=== PATIENT | female | born 1965 | race Caucasian/White ===

== ENCOUNTER 2017-03-13 11:23 | Emergency (ER) | payer MEDICAID ==
[2017-03-13 11:46] VITALS: BP 136/75
--- NOTE | 2017-03-13 14:07 | ERNOTE ---
Upper Extremity HPI - General Extremities Pain Location: shoulder: right Time Seen by Provider: 03/13/17 13:45 Source: patient Exam Limitations: no limitations - Immun/Allergies/Home Medications Immunizations: IMMUNIZATION HX Immunizations Up to Date Yes Allergies/Adverse Reactions: Allergies Allergy/AdvReac Type Severity Reaction Status Date / Time cyclobenzaprine HCl Allergy Verified 03/13/17 11:46 [From Flexeril] diphenhydramine HCl Allergy Verified 03/13/17 11:46 [From Benadryl] tramadol Allergy Verified 03/13/17 11:46 Home Medications: HOME MEDICATIONS Ibuprofen [Motrin] 600 mg PO TID PRN #45 tab 10/02/16 [Last Taken Unknown] HYDROcodone/ACETAMINOPHEN [War 5-325] 1 each PO Q4H PRN #8 tablet 03/13/17 [ Last Taken Unknown] - History of Present Illness Narrative: Patient had had trouble with her right rotator cuff and was supposed to have surgery but has not been able to have it done to a lot of medical challenges with her family. Over the weekend she helped her daughter move and has had more pain in her right shoulder again. Denies any injuries. Ibuprofen is not helping, she took her father's soma with some relieve. Review of Systems - Review of Systems Constitutional: Absent: fever, chills ENT: Present: no symptoms reported Respiratory: Present: no symptoms reported Cardiology: Present: no symptoms reported Gastrointestinal/Abdominal: Present: no symptoms reported Genitourinary: Present: no symptoms reported Musculoskeletal: Present: See HPI Neurological: Absent: weakness, numbness - Patient's Past Medical History Patient History - Medical: Chronic Pain, Other - chronic pain Patient History - Cardiac/Respiratory: No pertinent hx Patient History - Cancer: No Hx of Cancer Patient History - Surgical Procedures: Appendectomy, Other Patient History - Other: None - Social History Living Situations: home Abuse History: No History of abuse Psych History: No pertinent hx Alcohol Use: none Drug Use: none - Immunizations Immunizations Up to Date: Yes Physical Exam - Physical Exam General Appearance: Present: wd/wn, alert, no apparent distress Respiratory: Present: no respiratory distress, normal breath sounds, no accessory muscle use, lungs clear Cardiovascular/Chest: Present: regular rate, rhythm, no murmur Extremity Exam: Present: normal inspection, other - tender anterior shoulder, pain on ROM exam, no deformity Neurological Exam: Present: alert, oriented, normal mood/affect, no motor/ sensory deficits Skin Exam: Present: normal color, warm/dry ED Progress - Vital Signs Patient's Vital Signs:: I have reviewed the patient's vital signs. Vital Signs: Vital Signs 03/13/17 11:38 Temperature 36.7 C Pulse Rate 90 Respiratory 12 Rate Blood Pressure 136/75 O2 Sat by Pulse 98 Oximetry - Progress/Reassessment Chief Complaint: Shoulder Injury/Pain Progress Note-Subjective: 03/13/17 13:55 when asked about the five narcotic prescription that she has received last month she states that she was admitted for pancreatitis and has been dealing with migraines Departure Clinical Impression: Shoulder pain, right Qualifiers: Chronicity: unspecified Qualified Code(s): M25.511 - Pain in right shoulder - Departure Disposition: Home self-care Condition: Good Instructions: Shoulder Pain, [id number] Additional Instructions: take ibuprofen 600mg every six hours as needed for pain follow up with your orthopedic doctor Prescriptions: HYDROcodone/ACETAMINOPHEN [War 5-325] 1 each PO Q4H PRN #8 tablet PRN Reason: Pain
--- OUTSIDE RECORDS SUMMARY | 2017-03-13 14:10 | XMS REPORT | Continuity of Care Document ---
:1965 Author Organization [facility] [place] [address] Care Team Providers Name Role Phone Unavailable Primary Care Provider Unavailable Source Comments This disclosure is being made pursuant to the [employer] program and maynot contain all information available regarding this patient.[facility] Active Allergies and Adverse Reactions Not on File Current Medications Be aware that medications may not be up to date as of this document. Alwaysverify current medications with the patient. Not on file Active Problems Not on file Social History Tobacco Use Types Packs/Day Years Used Date Never Assessed Plan of Care Health Maintenance Due Date Last Done Comments Retired-Pertussis Vaccine Adult 1983 Retired-Tetanus Vaccine Adult 1983 Pap Smear 1985 Mammogram 2004 Colonoscopy 2014 Well Adult Visit 2014 Retired-INFLUENZA VACCINE 07/28/2015 Results from Last 3 Months Not on file
--- OUTSIDE RECORDS SUMMARY | 2017-03-13 14:11 | XMS REPORT | CCD ---
:1965 Author Name KIMBERLI ROY Dustin Address [address] [facility] Unavailable [place], [place] [id number] Care Team Providers Name Role Phone SATURNINO ARROYO DO Attending Physician Unavailable SATURNINO ARROYO DO Er Physician 1 Unavailable Vital Signs Vital Sign Value Unit Height 67 in Weight Measured 175 lbs BMI (Body Mass Index) 27.41 kg/m^2 BSA (Body Surface Area) 1.94 m^2 Allergies Allergy Code Allergy Type Reaction Status TRAMADOL 0 Drug allergy (disorder) Active KETOROLAC 0 Drug allergy (disorder) ITCHING Active GABAPENTIN 0 Drug allergy (disorder) Active IMITREX NS SPR 20 MG 0 Drug allergy (disorder) Active Procedures Unknown. History of Immunizations Unknown. Problems Problem Code Start Date Resolved Date Status MIGRAINE 33273774 12/25/2011 Active Personal history of surgery to heart and 643507663 Active great vessels, presenting hazards to health Head injury, unspecified 51266446 12/12/2013 Active Sprain of other specified sites of elbow 226612576 11/20/2013 Active and forearm Anxiety state, unspecified 260277174 10/30/2013 Active Pain in joint involving upper arm 28352687 09/21/2013 Active Mononeuritis of upper limb, unspecified 89578297 07/26/2013 Active DIZZINESS 340427557 11/02/2011 Active DIABETES MELLITUS 96195719 11/02/2011 Active OTHER SPECIFIED DISORDER OF NERVOUS SYSTEM 207740865 04/01/2013 Active 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 61412 11/02/2011 Active ARTERY CALCULUS OF KIDNEY 78873651 05/29/2013 Active BP (HIGH BLOOD PRESSURE) 92720768 11/02/2011 Active CLOSED DISPLACED FRACTURE OF FIFTH 53110992 Active METATARSAL BONE GASTRO - ESOPHAGEAL REFLUX DISEASE 930814036 Active H/O ACUTE MYOCARDIAL INFARCTION 412 Active ACTIVE SMOKER 06321147 Active SENIOR CARE CURRENT USE OF INSULIN 365471679 Active CALCULUS OF URETER 60848023 02/10/2013 Active CONTUSION OF ANKLE 14682644 08/08/2012 Active CONTUSION OF FOOT 62351429 08/08/2012 Active CONTUSION OF CHEST WALL 45803664 12/24/2012 Active NAUSEA WITH VOMITING 73485413 10/11/2012 Active CHEST PAIN 33411101 06/19/2012 Active CEPHALGIA 78717231 01/09/2012 Active CONTUSION OF HIP 55149415 07/16/2012 Active CONTUSION OF BACK 19548455 07/16/2012 Active Results Unknown. Medications Medication Code Dose Units Frequency Route Modification Start Stop Date/Time Date/Time Pravastatin 865738 40 MILLIGRAMS Before bed ORAL 08/24/2013 40MG Oral 10:59 Tablet Clopidogrel 580990 75 MILLIGRAMS ORAL 08/24/2013 75MG Oral 10:59 Tablet Aspirin 325MG 643396 325 MILLIGRAMS ORAL 08/24/2013 Oral Tablet 10:59 Lisinopril 313981 20 MILLIGRAMS DAILY ORAL 11/20/2013 20MG Oral 21:32 Tablet GlipiZIDE 142579 10 MILLIGRAMS DAILY ORAL 11/20/2013 10MG Oral 21:32 Tablet Hydrocodone 985654 1 TABLET Every BY For pain 11/29/2013 Bitart/Acet 4-6hr PRN MOUTH 01:37 325MG-5MG Oral Tablet Medications Administered Unknown. Encounters Encounter Diagnosis Diagnosis Code Start Date HEAD INJURY, UNSPEC 61447 12/12/2013 Social History Smoking Status Code Start Date End Date Current every day smoker [id number] Patient Decision Aids Patient Decision Aid [facility] Patient Educational Materials Instructions You were admitted to [facility] on 12/12/2013 with a principle diagnosis of HEAD INJURY, UNSPEC. You were discharged from [facility] on 12/12/2013. Should you have any questions prior to discharge, please contact a member of your healthcare team. If you have left the hospital and have any questions, please contact your primary care physician. Chief Complaint and Reason For Visit Chief Complaint Date of Onset FELL HIT HEAD ON ICE Function Status Unknown. Plan of Care Unknown. Referral/Transition of Care Unknown.
--- OUTSIDE RECORDS SUMMARY | 2017-03-13 14:11 | XMS REPORT | CCD ---
:1965 Author Name GATITO CABELLO Address [address] Unavailable [place], [place] [id number] Care Team Providers Name Role Phone JEB JAMES Attending Physician Unavailable Vital Signs Unknown. Allergies Allergy Code Allergy Type Reaction Status TRAMADOL 0 Drug allergy (disorder) Active KETOROLAC 0 Drug allergy (disorder) ITCHING Active GABAPENTIN 0 Drug allergy (disorder) Active IMITREX NS SPR 20 MG 0 Drug allergy (disorder) Active Procedures Procedure Code Procedure Type Date POLYSOMNOGRAM 8917 ICD-9 CM, Volume 3 12/16/2013 [address]Y 03611547 SNOMED CT 12/16/2013 History of Immunizations Unknown. 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 22933 11/02/2011 Active ARTERY CALCULUS OF KIDNEY 31333653 05/29/2013 Active BP (HIGH BLOOD PRESSURE) 38323259 11/02/2011 Active CLOSED DISPLACED FRACTURE OF FIFTH 16121058 Active METATARSAL BONE GASTRO - ESOPHAGEAL REFLUX DISEASE 602523697 Active H/O ACUTE MYOCARDIAL INFARCTION 412 Active ACTIVE SMOKER 44634742 Active HALF-WAY CURRENT USE OF INSULIN 895315961 Active CALCULUS OF URETER 56139198 02/10/2013 Active CONTUSION OF ANKLE 04854898 08/08/2012 Active CONTUSION OF FOOT 05345973 08/08/2012 Active CONTUSION OF CHEST WALL 86090633 12/24/2012 Active NAUSEA WITH VOMITING 83272582 10/11/2012 Active CHEST PAIN 26024385 06/19/2012 Active CEPHALGIA 10901489 01/09/2012 Active CONTUSION OF HIP 95276744 07/16/2012 Active CONTUSION OF BACK 08647137 07/16/2012 Active Results Unknown. Medications Medication Code Dose Units Frequency Route Modification Start Stop Date/Time Date/Time Pravastatin 369140 40 MILLIGRAMS Before bed ORAL 08/24/2013 40MG Oral 10:59 Tablet Clopidogrel 398112 75 MILLIGRAMS ORAL 08/24/2013 75MG Oral 10:59 Tablet Aspirin 325MG 218832 325 MILLIGRAMS ORAL 08/24/2013 Oral Tablet 10:59 Lisinopril 971104 20 MILLIGRAMS DAILY ORAL 11/20/2013 20MG Oral 21:32 Tablet GlipiZIDE 901605 10 MILLIGRAMS DAILY ORAL 11/20/2013 10MG Oral 21:32 Tablet Hydrocodone 214528 1 TABLET Every BY For pain 11/29/2013 Bitart/Acet 4-6hr PRN MOUTH 01:37 325MG-5MG Oral Tablet Medications Administered Unknown. Encounters Encounter Diagnosis Diagnosis Code Start Date SLEEP DISTURBANCE NOS 78990 12/16/2013 Social History Smoking Status Code Start Date End Date Current every day smoker 831876806 Patient Decision Aids Unknown. Instructions You were admitted to [facility] on 12/16/2013 with a principle diagnosis of SLEEP DISTURBANCE NOS. You had the following procedures done:POLYSOMNOGRAM You were discharged from [facility] on 12/16/2013. Should you have any questions prior to discharge, please contact a member of your healthcare team. If you have left the hospital and have any questions, please contact your primary care physician. Chief Complaint and Reason For Visit Chief Complaint Date of Onset SLEEP STUDY Function Status Unknown. Plan of Care Unknown. Referral/Transition of Care Unknown.
--- OUTSIDE RECORDS SUMMARY | 2017-03-13 14:11 | XMS REPORT | CCD ---
:1965 Author Name GATITO CABELLO Address [address] Unavailable [place], [place] [id number] Care Team Providers Name Role Phone MOISES LEON Attending Physician Unavailable Vital Signs Unknown or Not Available. Allergies Allergy Code Allergy Type Reaction Status BENADRYL 691248 Drug allergy ITCHING Active CYCLOBENZAPRINE 37391 Drug allergy Active KETOROLAC 21113 Drug allergy ITCHING Active TRAMADOL 51427 Drug allergy Active IMITREX NS SPR 20 MG 0 Drug allergy Active GABAPENTIN 23252 Drug allergy Active Procedures Unknown or Not Available. History of Immunizations Unknown or Not Available. 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 CURRENT USE OF INSULIN 320106053 Active MIGRAINE 78322911 12/25/2011 Active CEPHALGIA 88665638 01/09/2012 Active CHEST PAIN 55503849 06/19/2012 Active CONTUSION OF BACK 09448367 07/16/2012 Active CONTUSION OF HIP 80035282 07/16/2012 Active CONTUSION OF FOOT 19831673 08/08/2012 Active CONTUSION OF ANKLE 71379274 08/08/2012 Active NAUSEA WITH VOMITING 18850821 10/11/2012 Active CONTUSION OF CHEST WALL 20222048 12/24/2012 Active CALCULUS OF URETER 79829770 02/10/2013 Active OTHER SPECIFIED DISORDER OF NERVOUS SYSTEM 725461718 04/01/2013 Active CALCULUS OF KIDNEY 39546225 05/29/2013 Active Mononeuritis of upper limb, unspecified 23815025 07/26/2013 Active Pain in joint involving upper arm 20661423 09/21/2013 Active Anxiety state, unspecified 587348750 10/30/2013 Active Sprain of other specified sites of elbow 114378611 11/20/2013 Active and forearm Head injury, unspecified 28508351 12/12/2013 Active Personal history of surgery to heart and 077093010 Active great vessels, presenting hazards to health Headache 28224927 12/13/2013 Active Unspecified essential hypertension 41262641 Active Malignant neoplasm of cervix uteri, 740251366 Active unspecified Results Unknown or Not Available. Active Medications Medication Code Dose Units Frequency Route Modification Start Date/Time Metformin 1000MG 443505 4744 MILLIGRAMS TWICE A DAY ORAL 07/29/2014 Oral Tablet 06:20 Prescription Detail TAKE 1000 MILLIGRAMS ORAL TWICE A DAY Medications Administered During Visit Unknown or Not Available. 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 Discharge Instructions You were admitted to [facility] on 02/23/2016 13:49 with a principal diagnosis of Sedative, hypnotic or anxiolytic abuse, uncomplicated You were discharged from [facility] on 02/23/2016 14:12 Should you have any questions prior to discharge, please contact a member of your healthcare team. If you have left the hospital and have any questions, please contact your primary care physician. Chief Complaint and Reason For Visit Chief Complaint Date of Onset POSS STROKE Function Status Unknown or Not Available. Plan of Care Unknown or Not Available. Referral/Transition of Care Unknown or Not Available.
--- OUTSIDE RECORDS SUMMARY | 2017-03-13 14:11 | XMS REPORT | Continuity of Care Document ---
:1965 Author Organization [facility] ([facility]) Address [place] [address] Phone [phone] Care Team Providers Name Role Phone Laureano Zepeda Primary Care Provider [phone] Source Comments This disclosure is being made pursuant to the Care Everywhere program, applicable federal and state laws, and may not contain all informaitonavailable regarding this patient.[facility] ([facility]) Active Allergies and Adverse Reactions Allergen Noted Date Severity Reactions Comments Baclofen 08/30/2016 Medium Nausea & Vomiting Diphenhydramine Hcl 09/01/2016 Pruritus Gabapentin 09/12/2013 Medium Dizziness Severe dizziness Ketorolac 05/29/2013 Headache Sumatriptan Hypotension Tramadol 10/26/2012 Low OTHER Severe headache Current Medications Prescription Sig. Disp. Refills Start End Date Status Date nitroglycerin 0.4 place 1 Tab under 25 Tab 11 Active mg SL tablet the tongue every 3 5 minutes as needed. Indications: ANGINA acetaminophen 325 Take 325 mg by Active mg tablet mouth every 6 hours as needed. aspirin 81 mg EC Take 1 Tab by 30 Tab 11 Active tablet mouth daily. 4 Indications: MYOCARDIAL INFARCTION PREVENTION lisinopril 5 mg Take 1 Tab by 30 Tab 11 Active tablet mouth daily. 4 Indications: CHRONIC HEART FAILURE metoPROLol tartrate Take 1.5 Tabs by 90 Tab 11 Active 25 mg tablet mouth every 12 4 hours. Indications: ACUTE CORONARY SYNDROME albuterol 2.5 mg/3 One treatment Active mL inhalation four times a day 6 solution ramipril (ALTACE) One daily Active 2.5 mg capsule 6 albuterol (PROAIR 1-2 inhalations Active HFA) 90 every 4-6 hours 6 mcg/Actuation as needed inhaler cholecalciferol Take 1,000 Units Active (VITAMIN D3) 1,000 by mouth daily. unit capsule meloxicam 15 mg Take 1 tablet (15 30 tablet 2 Active tablet mg total) by 6 mouth daily. atorvastatin 80 mg Take 1 tablet (80 30 tablet 2 Active tablet mg total) by 6 mouth at bedtime. clopidogrel 75 mg Take 1 tablet (75 30 tablet 2 Active tablet mg total) by 6 mouth daily. melatonin 3 mg Take 1 tablet (3 15 tablet 0 Active tablet mg total) by 6 mouth at bedtime. METFORMIN 1,000 mg TAKE ONE TABLET 60 tablet 3 Active tablet BY MOUTH TWICE 6 DAILY ciprofloxacin HCl Take 1 tablet 20 tablet 0 Active 500 mg tablet (500 mg total) by 7 mouth 2 times daily. cyclobenzaprine 10 Take 1 tablet (10 30 tablet 0 Active mg tablet mg total) by 7 mouth 3 times daily as needed. benzonatate 100 mg Take 1 capsule 30 capsule 0 Active capsule (100 mg total) by 7 mouth 3 times daily as needed for Cough. cefdinir 300 mg Take 1 capsule 20 capsule 0 Active capsule (300 mg total) by 7 mouth 2 times daily. zolpiDEM 10 mg Take 1 tablet (10 30 tablet 0 Active tablet mg total) by 7 mouth at bedtime as needed. ALPRAZolam 1 mg Take 1 tablet (1 90 tablet 0 Active tablet mg total) by 7 mouth 3 times daily. acetaminophen-codei Take 1-2 tablets 30 tablet 0 Active ne 300-30 mg per by mouth every 6 7 tablet hours as needed for Pain. carisoprodol 350 mg Take 1 tablet 10 tablet 0 Active tablet (350 mg total) by 7 mouth 4 times daily. HYDROcodone-acetami Take 1 tablet by 12 tablet 0 Active nophen 5-325 mg per mouth every 6 7 tablet hours as needed. oxyCODONE-acetamino Take 1-2 tablets 30 tablet 0 02/18/20 Discontinued phen 5-325 mg per by mouth every 4 7 17 tablet hours as needed. Do NOT exceed 4000 mg of acetaminophen per 24 hours. azithromycin 250 mg Take 2 tablets 6 tablet 0 02/18/20 Discontinued tablet today, then 1 7 17 tablet daily for 4 days HYDROcodone-acetami Take 1-2 tablets 30 tablet 0 02/18/20 Discontinued nophen 5-325 mg per by mouth every 8 7 17 tablet hours as needed for Pain. zolpiDEM 10 mg Take 1 tablet (10 30 tablet 0 02/16/20 Discontinued tablet mg total) by 7 17 mouth at bedtime as needed. ALPRAZolam 1 mg Take 1 tablet (1 90 tablet 0 02/16/20 Discontinued tablet mg total) by 7 17 mouth 3 times daily. acetaminophen-codei Take 1-2 tablets 22 tablet 0 02/18/20 Discontinued ne 300-30 mg per by mouth every 6 7 17 tablet hours as needed for Pain. cefUROXime (CEFTIN) Take 1 tablet 20 tablet 0 02/18/20 Discontinued 500 mg tablet (500 mg total) by 7 17 mouth 2 times daily. oxyCODONE-acetamino Take 1-2 tablets 20 tablet 0 02/18/20 Discontinued phen 5-325 mg per by mouth every 6 7 17 tablet hours as needed. Do NOT exceed 4000 mg of acetaminophen per 24 hours. HYDROcodone-acetami Take 1-2 tablets 30 tablet 0 02/18/20 Discontinued nophen 5-325 mg per by mouth every 4 7 17 tablet hours as needed. azithromycin 500 mg Take 1 tablet 5 tablet 0 02/18/20 Discontinued tablet (500 mg total) by 7 17 mouth daily. ALPRAZolam 1 mg Take 1 tablet (1 90 tablet 0 02/18/20 Discontinued tablet mg total) by 7 17 mouth 3 times daily. Active Problems Problem Noted Date Muscle pain 06/17/2016 Disorder associated with type 2 diabetes mellitus 06/10/2016 Chronic pain 12/31/2015 Anxiety disorder 12/10/2015 Chronic fatigue 12/10/2015 Hyperlipidemia 12/10/2015 Insomnia 12/10/2015 Abnormal cervical Papanicolaou smear 12/07/2015 Type 2 diabetes mellitus 12/07/2015 Panic attack 12/07/2015 Abnormal nuclear cardiac imaging test 04/15/2014 Unstable angina 04/15/2014 Chest pain 04/14/2014 Strain flexor musc/fasc/tend at forarm lv, right arm, init 01/22/2014 Cubital tunnel syndrome 08/01/2013 Paresthesias in right hand 06/26/2013 Ureterolithiasis 05/29/2013 Left against medical advice 05/10/2013 Drug-seeking behavior 05/10/2013 CAD (coronary artery disease) s/p NSTEMI (05/2011 -- DESx2 to LAD) s/p 2012 STEMI (04/2011 -- GILLES to RCA) History of noncompliance with medical treatment 05/09/2013 Ulnar nerve impingement 05/04/2013 Diabetes mellitus type 2, uncontrolled 09/25/2012 Overview: Formatting of this note may be different from the original. Lab Results Component Value Date HBA1C 9.1* 01/25/2012 Tobacco abuse 01/25/2012 NSTEMI (non-ST elevated myocardial infarction) 05/11/2011 Transient alteration of awareness 10/08/2009 Dysplasia of cervix, unspecified 02/25/2009 Hyperlipidemia LDL goal < 70 12/19/2008 Overview: Formatting of this note may be different from the original. Lab Results Component Value Date CHOL 295 01/25/2012 CHOL 205 08/02/2011 CHOL 188 06/06/2011 TRIG 378* 01/25/2012 TRIG 175* 08/02/2011 TRIG 330* 06/06/2011 HDLP 31* 01/25/2012 HDLP 32* 08/02/2011 HDLP 29* 06/06/2011 LDL 231 11/13/2008 Lab Results Component Value Date LDL 231 11/13/2008 LDLC 188* 01/25/2012 Overweight (BMI 25.0-29.9) 12/19/2008 Overview: Formatting of this note may be different from the original. Wt Readings from Last 3 Encounters: 05/02/13 77.111 kg (170 lb) 10/10/12 77.202 kg (170 lb 3.2 oz) 10/10/12 72.576 kg (160 lb) Most Recent BMI 09/25/2012 1113 10/10/2012 2209 10/10/2012 2249 BMI: 26.8 25.1 26.7 Lumbago 10/18/2007 Resolved Problems Problem Noted Date Resolved Date Atypical angina 05/09/2013 05/10/2013 Chronic systolic heart failure 05/09/2013 05/10/2013 Overview: Formatting of this note may be different from the original. Most recent Echocardiogram: Results for orders placed during the hospital encounter of 05/11/11 ECHO ADULT - ECHOCARDIOGRAM, TRANSTHORACIC Result Value Range Vitals Value: Patient Height 170.0 cm Patient Weight 77.0 kg BSA 1.9 m Interpretation Summary Value: LV Ejection Fraction=45% with basal inferior and inferolateral hypokinesis-akinesis. No significant valvular disease Left Ventricle (LV) Value: Normal left ventricular size Normal LV wall thickness. LV Ejection Fraction=45% (based on visual estimate) Mildly decreased LV systolic function Basal inferior and inferolateral akinesis Right Ventricle (RV) Value: Normal right ventricular size Normal right ventricular systolic function Left and Right Atria (LA, RA) Value: Normal LA chamber size Normal right atrial chamber size Mitral Valve (MV) Value: No mitral valve stenosis. Calcified mitral annulus. Tricuspid Valve (TV) Value: Visualization of the Tricuspid Valve is limited (not all leaflets are seen) No significant tricuspid regurgitation by color doppler Unable to estimate pulmonary artery systolic or right ventricular systolic pressure from TR doppler Aortic Valve (AoV) Value: Visualization of the Aortic Valve is limited Mild aortic insufficiency Pulmonic Valve (PV) Value: Pulmonic valve is not visualized No pulmonic valve stenosis by doppler No pulmonic valvular regurgitation by doppler Aorta and Pulmonary Artery (Ao, PA) The aortic root is normal size. Pericardium/Pleura Trivial pericardial effusion. Mitral Valve (MV) Trace mitral regurgitation Aortic Valve (AoV) Value: No hemodynamically significant valvular aortic stenosis by doppler Procedures Value: Complete 2D with Doppler, Color Flow and image documentation ([id number]) Inf. Vena Cava (IVC) / Pulm. Veins Value: The IVC size is normal (< 2.1 cm). IVC diameter change with respiration cannot be accurately assessed due to technical limitations. Procedures Value: I personally viewed the echocardiogram and approve the above interpretation Technical Comments Echo image quality: good Left and Right Atria (LA, RA) No interatrial shunt visualized by color doppler Primary ICD-9 Code Value: Coronary atherosclerosis of stebbins coronary artery (414.01) Doppler Measurements & Calculations Value: Ao mean PG 8.5 mmHg Ao V2 mean 142.5 cm/sec Ao V2 max 187.2 cm/sec Ao V2 VTI 35.3 cm MV dec time 0.2 sec MV E point 81.0 cm/sec Ao max PG 14.0 mmHg SV(Ao) 177.3 ml Mmode 2D Measurements & Calculations Value: EDV(MOD-sp4) 74.9 ml IVSd 0.9 cm LVOT diam 2.2 cm LVIDd 4.4 cm LVIDs 3.2 cm LVPWd 1.0 cm LA dimension 3.1 cm Ao root diam 2.5 cm Ao root area 5.0 cm^2 EDV(cubed) 84.4 ml EDV(MOD-bp) 0 ml EDV(Teich) 87.0 ml FS 26.5 % IVS/LVPW 0.9 LA/Ao 1.2 LV mass(C)d 140.9 grams LV mass(C)dI 74.8 grams/m^2 LVOT area 3.6 cm^2 Interpretation Summary TRANSTHORACIC ECHOCARDIOGRAM Reason For Study post PCI assessment Departmental Buyer Shante Lewis Interpreting Physician Value: Ash Anderson MD electronically signed on 05-12-2011 14:51:10 Kidney stone 10/10/2012 05/09/2013 Kidney stone on right side 10/10/2012 05/09/2013 Pain 09/25/2012 05/09/2013 Absence of menstruation 12/19/2008 04/18/2014 Abdominal pain, unspecified site 08/12/2008 05/09/2013 Other alteration of consciousness 04/19/2008 05/09/2013 Other chest pain 04/19/2008 05/09/2013 Most Recent Encounters Date Type Specialty Providers Description 03/05/2017 Hospital Encounter [facility] Emergency Ash Mendieta Dx: 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, right (Primary Dx) 03/03/2017 Refill [facility] Primary Care [place], Comp: JOE Tinsley Medications Refill 02/17/2017 Office Visit [facility] Primary Care [place] Dx: Medication refill JOE Tinsley (Primary Dx) 02/17/2017 Refill [facility] Primary [facility] Chief [place] Comp: JOE Tinsley Medications Refill 02/15/2017 Telephone [facility] Emergency Flores Ventura, Chief Comp: Follow-up Medicine RN 02/15/2017 Refill [facility] Primary Care [place], Dx: Medication refill JOE Tinsley (Primary Dx) 02/09/2017 Hospital Encounter [facility] Emergency Nam Sabrina, Dx: Pleurisy ( Primary Medicine DO Dx) 02/02/2017 Telephone [facility] Primary Care [place], Comp: Results JOE Tinsley 02/02/2017 Orders Only [facility] Primary Care [place], Dx: Bacterial JOE Tinsley vaginitis (Primary Dx) 01/29/2017 Hospital Encounter [facility] Emergency DwightAsh stein Dx: Pneumonia of left Medicine JMD herrera (Primary Dx) 01/25/2017 Office Visit [facility] Primary Care [place] Dx: Medication refill JOE Tinsley (Primary Dx) 01/24/2017 Refill [facility] [place], Dx: Medication refill JOE Tinsley (Primary Dx) 01/17/2017 Telephone [facility] [place] Dx: Cough (Primary Dx) JOE Tinsley 01/11/2017 Office Visit [facility] [place], Dx: Chronic fatigue, JOE Tinsley unspecified (Primary Dx) 12/28/2016 Hospital Encounter [facility] Emergency Sabrina Browning, Dx: Other chronic pain Medicine DO (Primary Dx) 12/20/2016 Refill [facility] [place] Dx: Medication refill JOE Tinsley (Primary Dx) Immunizations Name Dates Previously Given Next Due DT 01/24/2007 Social History Tobacco Use Types Packs/Day Years Used Date Current Every Day Smoker Cigarettes 0.25 20 Smokeless Tobacco: Never Used Tobacco Cessation:Ready to Quit: No Comments: Alcohol Use Drinks/Week oz/Week Comments No Last Filed Vital Signs Vital Sign Reading Time Taken Blood Pressure 136/72 03/05/2017 2:11 PM CDT Pulse 87 03/05/2017 2:11 PM CDT Temperature 36.8 C (98.3 F) 03/05/2017 2:11 PM CDT Respiratory Rate 16 03/05/2017 2:11 PM CDT Height 1.702 m (5' 7") 03/05/2017 2:11 PM CDT Weight 69.4 kg (153 lb) 03/05/2017 2:11 PM CDT Body Mass Index 23.96 03/05/2017 2:11 PM CDT Oxygen Saturation 97% 03/05/2017 2:11 PM CDT Plan of Care Patient Goal Type Goal Result Component % HBA1C below 7.0 HDLP above 40 Lifestyle Quit smoking / using tobacco Date Type Specialty Providers Description 11/27/2049 Surgery Ambulatory Surgery Liss Arreguin MD Canceled [facility] [address] NERVE/[place] [address] TRANSPOSITION [phone] (Fax) Health Maintenance Due Date Last Done Comments HCV Screening 1965 Hepatitis B Vaccine (1 of 3 - 1965 Primary Series) Tdap Vaccine 1975 MMR Vaccine 1982 Pneumococcal Vaccine (1 of 1 1983 - PPSV23) Mammogram 2004 DIABETIC: Retinal Eye Exam 05/10/2011 DIABETIC: Foot Exam 09/25/2013 09/25/2012, Additional history exists 09/25/2012, 09/25/2012 DIABETIC: Microalbumin 09/25/2013 09/25/2012, Additional history exists 08/02/2011, 06/06/2011 Colonoscopy 2014 Cervical Cancer Screening 09/27/2014 09/27/2011, Additional history exists 08/02/2011, 02/25/2009 Td Vaccine 01/24/2017 01/24/2007 DIABETIC: Hemoglobin A1C 05/24/2017 11/23/2016, Additional history exists 09/07/2016, 04/14/2014 Influenza Vaccine: Seasonal 06/27/2017 (Season Ended) DIABETIC: Cholesterol 11/23/2017 11/23/2016, Additional history exists 09/07/2016, 04/19/2014 Diabetic: Hdl 11/23/2017 11/23/2016, Additional history exists 09/07/2016, 04/19/2014 Diabetic: Ldl 11/23/2017 11/23/2016, Additional history exists 09/07/2016, 04/19/2014 DIABETIC: Triglycerides 11/23/2017 11/23/2016, Additional history exists 09/07/2016, 04/19/2014 Results from Last 3 Months CC XR CHEST PA& LAT ([id number]) (02/09/2017 1:33 PM)Only the most recent of2 resultswithin the time period is included. Impressions IMPRESSION: 1. Partial interval clearing of left lower lung infiltrate or atelectasis. Electronically signed by: Nicolas Mary MD - 02/09/2017 1:41 PM Narrative EXAM: DX CHEST PA + LATERAL CLINICIAN'S HISTORY: cough HISTORY REPORTED TO TECHNOLOGIST:COUGH AND CHEST CONGESTION X 1 MONTH; HISTORY TOBACCO USE COMPARISON: 01/29/2017. FINDINGS: PA and lateral views of the chest show normal heart size and pulmonary vascularity. Density at the cardiac apex previously is less prominent suggesting potential resolving infiltrate or atelectasis. Left lower lung granuloma. Coronary artery stents. Aortic calcification. Procedure Note Sabino, Incoming Imaging Results - Teresa Feb 09, 2017 1:43 PM CDT EXAM: DX CHEST PA + LATERAL CLINICIAN'S HISTORY: cough HISTORY REPORTED TO TECHNOLOGIST: COUGH AND CHEST CONGESTION X 1 MONTH; HISTORY TOBACCO USE COMPARISON: 01/29/2017. FINDINGS: PA and lateral views of the chest show normal heart size and pulmonary vascularity. Density at the cardiac apex previously is less prominent suggesting potential resolving infiltrate or atelectasis. Left lower lung granuloma. Coronary artery stents. Aortic calcification. IMPRESSION IMPRESSION: 1. Partial interval clearing of left lower lung infiltrate or atelectasis. Electronically signed by: Nicolas Mary MD - 02/09/2017 1:41 PM [facility] COMPREHENSIVE METABOLIC PANEL (CMP) (02/09/2017 1:06 PM)Only the most recent of3 resultswithin the time period is included. Component Value Range [facility] AST 6 0-37 IU/L [facility] ALT <5 0-40 IU/L [facility] Alkaline Phosphatase 117 39-117 IU/L [facility] Total Protein 5.8(L) 5.9-8.4 g/dL [facility] Albumin 3.2(L) 3.5-5.0 g/dL [facility] Globulin 2.6 2.0-3.6 g/dL [facility] A/G Ratio 1.2 1.0-2.5 [facility] Total Bilirubin <0.2 0.0-1.0 mg/dL [facility] Creatinine 1.0 0.4-1.1 mg/dL [facility] BUN 11 7-22 mg/dL [facility] Sodium 132(L) 133-145 mEq/L [facility] Potassium 3.6 3.3-5.1 mEq/L [facility] Chloride 100 96-108 mEq/L [facility] CO2 20(L) 22-30 mEq/L [facility] Anion Gap 12 8-16 mEq/L [facility] Calcium 8.7 8.4-10.2 mg/dL [facility] Glucose 402(HH)Comment:Called to [place]/ER 60-125 mg/dL 02/09/17 1340 NDD [facility] Calculated GFR 58(L) >60 mL/min/1.73 m2 Specimen Blood [facility] CBC WITH DIFFERENTIAL (02/09/2017 1:06 PM)Only the most recent of3 resultswithin the time period is included. Component Value Range [facility] WBC Count 6.5 3.7-9.3 Ths/uL [facility] RBC Count 3.46(L) 3.90-5.30 mil/uL [facility] Hemoglobin 11.8(L) 12.3-15.1 g/dL [facility] Hematocrit 38 37-45 % [facility] MCV (Mean Corpuscular Volume) 109(H) 81-98 fL [facility] MCH (Mean Corpuscular Hemoglobin) 34.1(H) 26.9-31.1 pg [facility] MCHC (Mean Corpuscular Hemoglobin Concentration) 31.3(L) 31.9-36.1 g/dL [facility] Platelet Count 175 161-349 Ths/uL [facility] RDW-SD 57.4(H) 35.0-54.0 fL [facility] RDW-CV 14.8 11.6-17.0 % [facility] MPV (Mean Platelet Volume) 9.3 9.0-13.0 fL [facility] Absolute Neutrophils 3.8 1.5-7.9 Ths/uL [facility] Absolute Lymphocytes 2.2 0.7-3.4 Ths/uL [facility] Absolute Monocytes 0.36 0.10-1.00 Ths/uL [facility] Absolute Eosiniphils 0.06 0.00-0.35 Ths/uL [facility] Absolute Basophils 0.01 0.00-0.10 Ths/uL [facility] Absolute Ig 0.05 0.00-0.10 Ths/uL [facility] Percent Neutrophils 58.4 40.0-70.0 % [facility] Percent Lymphocytes 34.2 20.0-44.0 % [facility] Percent Monocytes 5.5 0.0-10.0 % [facility] Percent Eosinophils 0.9 0.0-6.0 % [facility] Percent Basophils 0.2 0.0-2.0 % [facility] Percent Ig 0.8 0.0-1.0 % HC Manual Differential Not Indicated Specimen Blood [facility] TROPONIN T (01/29/2017 9:06 AM) Component Value Range [facility] Troponin T <0.01 <=0.10 ng/mL Specimen Blood [facility] PT/INR (PROTHROMBIN TIME/INR) VENOUS (01/29/2017 9:06 AM) Component Value Range [facility] Protime 10.4 9.0-12.0 Secs [facility] INR 1.1 0.1-1.1 Specimen Blood [facility] PARTIAL THROMBOPLASTIN TIME (PTT) (01/29/2017 9:06 AM) Component Value Range [facility] PTT 25.0 24.0-34.0 Secs Specimen Blood [facility] BRAIN NATRIURECTIC PEPTIDE (BNP) (01/29/2017 9:06 AM) Component Value Range [facility] BNP 560(H) 0-168 pg/mL Specimen Blood [facility] EPIPHANY EKG (01/29/2017 8:59 AM) Component Value Range REPORT [facility] Test Date:2017-01-29 Pat Name: ELVIA CUEVASDepartment: Room: Gender: F Home Lending Officer: Praneeth :1965 Requested By: Order Number: [id number] MD: Laureano Wilkerson Measurements IntervalsAxis Rate: 100P: 62 AL: 111QRS: 43 QRSD: 84 T: -3 QT: 323 QTc:418 Interpretive Statements SINUS TACHYCARDIA WITH SHORT AL INTERVAL POSSIBLE LEFT ATRIAL ENLARGEMENT[-0.1mV P WAVE IN V1/V2] NONSPECIFIC T-WAVE ABNORMALITY ABNORMAL RHYTHM ECG No previous ECG available for comparison Electronically Signed On 01-29-2017 10:57:07 PRODUCTION SPECIALIST by Laureano Wilkerson [facility] CYTOLOGY, MEDICATION CARE MANAGER SPECIMEN (01/25/2017 10:16 AM) Component Value Range [facility] Cytology Specimen Cervical/Endocervical, HPV, CT/NG Specimen Other [facility] CT ABDOMEN PELVIS WO CONTRAST ([id number]) (12/28/2016 12:19 PM) Impressions IMPRESSION: 1. No acute findings in the abdomen or pelvis. 2. Nonobstructing bilateral renal stones. Otherwise, the urinary tract has a normal appearance. No evidence of diverticulitis. Appendectomy. 3. Atherosclerotic and granulomatous changes. Electronically signed by: Nicolas Mary MD - 12/28/2016 12:29 PM Narrative EXAM: CT ABDOMEN-PELVIS WO CONT CLINICIAN'S HISTORY: right flank pain history of kidney HISTORY REPORTED TO TECHNOLOGIST:Right flank pain. COMPARISON: 05/08/2016 *Dose reduction techniques using the adjustment of the mA and/or kV according to patient size and/or use of AEC or iterative reconstruction were used in the acquisition of this exam.* TECHNIQUE: Helical acquisition through the abdomen and pelvis without contrast enhancement. Reconstruction images reviewed. FINDINGS: Bilateral nonobstructing renal stones. No ureteral or bladder calculi. No urinary tract mass is obvious. No evidence of bladder wall thickening. No evidence of colonic diverticula colitis. Appendectomy. No abdominal or pelvic mass or free fluid. Lower lung and splenic granulomata. Gallbladder contracted but grossly negative. Calcification in the pancreas could be related to prior pancreatitis. Otherwise the pancreas is negative. Negative adrenal glands and stomach. Small splenule. No aneurysm or adenopathy or hernia. Tubal ligation. Degenerative disc disease at the lumbosacral interspace level. Coronary artery calcification. No lower lung infiltrate or pleural fluid. Procedure Note Sabino, Incoming Imaging Results - MonDec 28, 2016 12:31 PM PRODUCTION SPECIALIST EXAM: CT ABDOMEN-PELVIS WO CONT CLINICIAN'S HISTORY: right flank pain history of kidney HISTORY REPORTED TO TECHNOLOGIST: Right flank pain. COMPARISON: 05/08/2016 *Dose reduction techniques using the adjustment of the mA and/or kV according to patient size and/or use of AEC or iterative reconstruction were used in the acquisition of this exam.* TECHNIQUE: Helical acquisition through the abdomen and pelvis without contrast enhancement. Reconstruction images reviewed. FINDINGS: Bilateral nonobstructing renal stones. No ureteral or bladder calculi. No urinary tract mass is obvious. No evidence of bladder wall thickening. No evidence of colonic diverticula colitis. Appendectomy. No abdominal or pelvic mass or free fluid. Lower lung and splenic granulomata. Gallbladder contracted but grossly negative. Calcification in the pancreas could be related to prior pancreatitis. Otherwise the pancreas is negative. Negative adrenal glands and stomach. Small splenule. No aneurysm or adenopathy or hernia. Tubal ligation. Degenerative disc disease at the lumbosacral interspace level. Coronary artery calcification. No lower lung infiltrate or pleural fluid. IMPRESSION IMPRESSION: 1. No acute findings in the abdomen or pelvis. 2. Nonobstructing bilateral renal stones. Otherwise, the urinary tract has a normal appearance. No evidence of diverticulitis. Appendectomy. 3. Atherosclerotic and granulomatous changes. Electronically signed by: Nicolas Mary MD - 12/28/2016 12:29 PM [facility] AMYLASE, SERUM (12/28/2016 11:25 AM) Component Value Range [facility] Amylase 48 28-100 IU/L Specimen Blood [facility] LIPASE (12/28/2016 11:25 AM) Component Value Range [facility] Lipase 21 13-60 U/L Specimen Blood [facility] URINALYSIS WITH MICROSCOPY AND REFLEX TO CULTURE (12/28/2016 11:25 AM) Component Value Range [facility] Color, urine Yellow Yellow [facility] Clarity, Urine Cloudy(A) Clear [facility] Spec [place], Urine >=1.030(H) 1.015-1.025 [facility] pH, Urine 6.0 5-8 [facility] Glucose, Urine Trace(A) Negative [facility] Ketones, Urine Negative Negative [facility] Bilirubin, Urine Negative Negative [facility] Hemogloblin, Urine Trace-intact(A) Negative [facility] Protein, Urine 3+(A) Negative [facility] Leukocyte Esterase, Urine Negative Negative [facility] Nitrite, Urine Negative Negative [facility] Culture Not Done [facility] RBC, urine 2-4(A) None Seen /hpf [facility] WBC, urine 2-5(A) None Seen, 0-2 [facility] Epithelial Cells 10-20(A) 1-5, None Seen /lpf [facility] Bacteria None Seen None Seen [facility] Crystals None Seen None Seen [facility] Casts None Seen None Seen [facility] Mucus None Seen None Seen [facility] Collection Voided [facility] Microscopic See Below [facility] Amorphous Crystals Moderate(A) None Seen [facility] Calcium Oxalate Crystals None Seen None Seen [facility] Hippuric Crystals None Seen None Seen [facility] Triple Phosphate Crystals None Seen None Seen [facility] Uric Acid Crystals None Seen None Seen [facility] Leucine None Seen None Seen [facility] Cystine Crystals None Seen None Seen [facility] WBC Casts None Seen None Seen [facility] RBC Casts None Seen None Seen [facility] Fine Granular Casts None Seen None Seen [facility] Course Granular Casts None Seen None Seen [facility] Hyaline Casts None Seen None Seen Specimen Urine [facility] C-REACTIVE PROTEIN (12/28/2016 11:25 AM) Component Value Range [facility] CRP 0.61 0.00-1.00 mg/dL Specimen Blood
--- OUTSIDE RECORDS SUMMARY | 2017-03-13 14:11 | XMS REPORT | CCD ---
:1965 Author Name GATITO CABELLO Address [address] Unavailable [place], [place] [id number] Care Team Providers Name Role Phone SHERRIE VERA Attending Physician Unavailable SHERRIE VERA Er Physician 1 Unavailable Vital Signs Unknown or Not Available. Allergies Allergy Code Allergy Type Reaction Status BENADRYL 395549 Drug allergy ITCHING Active CYCLOBENZAPRINE 33297 Drug allergy Active KETOROLAC 54426 Drug allergy ITCHING Active TRAMADOL 66504 Drug allergy Active IMITREX NS SPR 20 MG 0 Drug allergy Active GABAPENTIN 91538 Drug allergy Active Procedures Unknown or Not Available. History of Immunizations Unknown or Not Available. 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 669985345 Active MIGRAINE 98899190 12/25/2011 Active CEPHALGIA 82572695 01/09/2012 Active CHEST PAIN 01471813 06/19/2012 Active CONTUSION OF BACK 31066016 07/16/2012 Active CONTUSION OF HIP 28995929 07/16/2012 Active CONTUSION OF FOOT 56061235 08/08/2012 Active CONTUSION OF ANKLE 85452008 08/08/2012 Active NAUSEA WITH VOMITING 74226957 10/11/2012 Active CONTUSION OF CHEST WALL 81414812 12/24/2012 Active CALCULUS OF URETER 66159119 02/10/2013 Active OTHER SPECIFIED DISORDER OF NERVOUS SYSTEM 618089573 04/01/2013 Active CALCULUS OF KIDNEY 76158293 05/29/2013 Active Mononeuritis of upper limb, unspecified 67980536 07/26/2013 Active Pain in joint involving upper arm 93263124 09/21/2013 Active Anxiety state, unspecified 571866283 10/30/2013 Active Sprain of other specified sites of elbow 777906974 11/20/2013 Active and forearm Head injury, unspecified 59862134 12/12/2013 Active Personal history of surgery to heart and 229773168 Active great vessels, presenting hazards to health Headache 95522104 12/13/2013 Active Unspecified essential hypertension 05112861 Active Malignant neoplasm of cervix uteri, 794902389 Active unspecified Results Unknown or Not Available. Active Medications Medication Code Dose Units Frequency Route Modification Start Date/Time Metformin 1000MG 458912 1190 MILLIGRAMS TWICE A DAY ORAL 07/29/2014 Oral Tablet 06:20 Prescription Detail TAKE 1000 MILLIGRAMS ORAL TWICE A DAY Medications Administered During Visit Unknown or Not Available. Encounters Encounter Diagnosis Diagnosis Code Start Date Acute bronchitis, unspecified J209 04/02/2016 Social History Smoking Status Code Start Date End Date Current every day smoker 662325746 11/27/1979 Patient Decision Aids Unknown or Not Available. Discharge Instructions You were admitted to [facility] on 04/02/2016 12:35 with a principal diagnosis of Acute bronchitis, unspecified You were discharged from [facility] on 04/02/2016 13:13 Should you have any questions prior to discharge, please contact a member of your healthcare team. If you have left the hospital and have any questions, please contact your primary care physician. Chief Complaint and Reason For Visit Chief Complaint Date of Onset SHORT OF BREATH COUGH Function Status Unknown or Not Available. Plan of Care Unknown or Not Available. Referral/Transition of Care Unknown or Not Available.
--- OUTSIDE RECORDS SUMMARY | 2017-03-13 14:11 | XMS REPORT | CCD ---
:1965 Author Name PREMAKIMBERLI Dustin Address [address], [place] [address] Care Team Providers Name Role Phone SANTINO DYER Attending Physician Unavailable SANTINO DYER Er Physician 1 Unavailable DORIS Feliciano Registered Nurse Unavailable Vital Signs Vital Sign Value Unit Date/Time Recent/Initial? Weight Measured 170 lbs 08/30/2015 16:33 Initial VS Height 67 in 08/30/2015 16:33 Initial VS BMI (Body Mass Index) 26.63 kg/m^2 08/30/2015 16:33 Initial VS BSA (Body Surface Area) 1.91 m^2 08/30/2015 16:33 Initial VS BP Systolic 147 mmHg 08/30/2015 16:33 Initial VS BP Diastolic 70 mmHg 08/30/2015 16:33 Initial VS Allergies Allergy Code Allergy Type Reaction Status BENADRYL 094947 Drug allergy ITCHING Active CYCLOBENZAPRINE 03903 Drug allergy Active KETOROLAC 06698 Drug allergy ITCHING Active TRAMADOL 83509 Drug allergy Active IMITREX NS SPR 20 MG 0 Drug allergy Active GABAPENTIN 96806 Drug allergy Active Procedures Procedure Code Procedure Type Date SHOULDER 2 OR 3 VWS LT 89014003 SNOMED CT 08/30/2015 History of Immunizations Unknown or Not Available. 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 257497881 Active MIGRAINE 65406960 12/25/2011 Active CEPHALGIA 59841702 01/09/2012 Active CHEST PAIN 50851015 06/19/2012 Active CONTUSION OF BACK 82876711 07/16/2012 Active CONTUSION OF HIP 24490156 07/16/2012 Active CONTUSION OF FOOT 07471903 08/08/2012 Active CONTUSION OF ANKLE 15639465 08/08/2012 Active NAUSEA WITH VOMITING 03610313 10/11/2012 Active CONTUSION OF CHEST WALL 99131793 12/24/2012 Active CALCULUS OF URETER 00858710 02/10/2013 Active OTHER SPECIFIED DISORDER OF NERVOUS SYSTEM 053092290 04/01/2013 Active CALCULUS OF KIDNEY 05412013 05/29/2013 Active Mononeuritis of upper limb, unspecified 06219557 07/26/2013 Active Pain in joint involving upper arm 76876768 09/21/2013 Active Anxiety state, unspecified 773312847 10/30/2013 Active Sprain of other specified sites of elbow 654188529 11/20/2013 Active and forearm Head injury, unspecified 75627656 12/12/2013 Active Personal history of surgery to heart and 369342533 Active great vessels, presenting hazards to health Headache 62598768 12/13/2013 Active Unspecified essential hypertension 12709794 Active Malignant neoplasm of cervix uteri, 449530808 Active unspecified Results Unknown or Not Available. Active Medications Medication Code Dose Units Frequency Route Modification Start Date/Time Metformin 1000MG 713594 1441 MILLIGRAMS TWICE A DAY ORAL 07/29/2014 Oral Tablet 06:20 Prescription Detail TAKE 1000 MILLIGRAMS ORAL TWICE A DAY Medications Administered During Visit Unknown or Not Available. Encounters Encounter Diagnosis Diagnosis Code Start Date Contusion of left shoulder, initial encounter S29296G 08/30/2015 Social History Smoking Status Code Start Date End Date Current every day smoker 804355024 11/27/1979 Patient Decision Aids Unknown or Not Available. Discharge Instructions You were admitted to [facility] on 08/30/2015 with a principal diagnosis of Contusion of left shoulder, initial encounter. You were discharged from [facility] on 08/30/2015. Should you have any questions prior to discharge, please contact a member of your healthcare team. If you have left the hospital and have any questions, please contact your primary care physician. Chief Complaint and Reason For Visit Chief Complaint Date of Onset SHOULDER PAIN Function Status Unknown or Not Available. Plan of Care Unknown or Not Available. Referral/Transition of Care Unknown or Not Available.
--- OUTSIDE RECORDS SUMMARY | 2017-03-13 14:12 | XMS REPORT | CCD ---
:1965 Author Name KIMBERLI LLOYD Dustin Address [address] [facility] Unavailable [place], [place] [address] Care Team Providers Name Role Phone RUTHIE GARNICA Attending Physician Unavailable RUTHIE GARNICA Er Physician 1 Unavailable Jessica.YUDITH Registered Nurse Unavailable P.DORIS Registered Nurse Unavailable O.BELINDA Registered Nurse Unavailable Vital Signs Vital Sign Value Unit Date/Time Recent/Initial? Weight Measured 172 lbs 04/18/2014 09:53 Initial VS Height 20.2 in 04/18/2014 09:53 Initial VS BMI (Body Mass Index) 96.36 kg/m^2 04/18/2014 09:53 Initial VS BSA (Body Surface Area) 1.05 m^2 04/18/2014 09:53 Initial VS Allergies Allergy Code Allergy Type Reaction Status KETOROLAC 0 Drug allergy (disorder) ITCHING Active TRAMADOL 0 Drug allergy (disorder) Active IMITREX NS SPR 20 MG 0 Drug allergy (disorder) Active GABAPENTIN 0 Drug allergy (disorder) Active Procedures Unknown. History of Immunizations Unknown. 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 271595959 Active MIGRAINE 32900834 12/25/2011 Active CEPHALGIA 67860982 01/09/2012 Active CHEST PAIN 84433616 06/19/2012 Active CONTUSION OF BACK 02496479 07/16/2012 Active CONTUSION OF HIP 06943982 07/16/2012 Active CONTUSION OF FOOT 47728819 08/08/2012 Active CONTUSION OF ANKLE 24739693 08/08/2012 Active NAUSEA WITH VOMITING 95137485 10/11/2012 Active CONTUSION OF CHEST WALL 31313429 12/24/2012 Active CALCULUS OF URETER 75615043 02/10/2013 Active OTHER SPECIFIED DISORDER OF NERVOUS SYSTEM 798934889 04/01/2013 Active CALCULUS OF KIDNEY 22525482 05/29/2013 Active Mononeuritis of upper limb, unspecified 82618711 07/26/2013 Active Pain in joint involving upper arm 89096316 09/21/2013 Active Anxiety state, unspecified 072655374 10/30/2013 Active Sprain of other specified sites of elbow 475530041 11/20/2013 Active and forearm Head injury, unspecified 17383724 12/12/2013 Active Personal history of surgery to heart and 325394747 Active great vessels, presenting hazards to health Headache 70553539 12/13/2013 Active Unspecified essential hypertension 00751851 Active Malignant neoplasm of cervix uteri, 837205310 Active unspecified Results PT/PTT, PLASMA Test Name Code Test Result [place] [address]-30 9.4000 Sec 04/18/2014 09:44 INR 62265-9 0.9000 04/18/2014 09:44 PTT 41507-3 21.6000 Sec 04/18/2014 09:44 CARDIAC ENZYMES Test Name Code Test Result Test Units Test Date/Time CPK 51.0000 U/L 04/18/2014 09:44 CK-MB 0.8000 ng/mL 04/18/2014 09:44 CK-MB INDEX 1.6000 % 04/18/2014 09:44 TROPONIN I 0.0400 ng/mL 04/18/2014 09:44 COMPREHENSIVE METABOLIC PANEL Test Name Code Test Result Test Units Test Date/Time GLUCOSE 250.0000 mg/dL 04/18/2014 09:44 SODIUM 141.0000 mmol/L 04/18/2014 09:44 POTASSIUM 3.8000 mmol/L 04/18/2014 09:44 CHLORIDE 106.0000 mmol/L 04/18/2014 09:44 CO2 25.0000 mmol/L 04/18/2014 09:44 BUN 11.0000 mg/dL 04/18/2014 09:44 CREATININE 1.0000 mg/dL 04/18/2014 09:44 BUN/CREAT 11.0000 04/18/2014 09:44 CALCIUM 9.7000 mg/dL 04/18/2014 09:44 TOTAL BILI 0.3000 mg/dL 04/18/2014 09:44 TOTAL PROTEIN 7.5000 g/dL 04/18/2014 09:44 ALBUMIN 3.8000 g/dL 04/18/2014 09:44 A/G RATIO 1.0000 04/18/2014 09:44 ALKALINE PHOS 128.0000 IU/L 04/18/2014 09:44 AST/SGOT 9.0000 IU/L 04/18/2014 09:44 ALT/SGPT 16.0000 IU/L 04/18/2014 09:44 ANION GAP 14.0000 mmol/L 04/18/2014 09:44 AGE 49[age]0000 YEARS 04/18/2014 09:44 GFR 62.6300 ml/min 04/18/2014 09:44 CBC Test Name Code Test Result Test Units Test Date/Time WBC 6690-2 8.2000 K/uL 04/18/2014 09:44 RBC 789-8 4.0200 M/uL 04/18/2014 09:44 HEMOGLOBIN 718-7 12.9000 g/dL 04/18/2014 09:44 HEMATOCRIT 39.4000 % 04/18/2014 09:44 MCV 98.0000 fL 04/18/2014 09:44 MCH 32.1000 PG 04/18/2014 09:44 MCHC 32.7000 G/DL 04/18/2014 09:44 RDW-SD 48.2000 FL 04/18/2014 09:44 RDW-CV 13.8000 % 04/18/2014 09:44 PLATELETS 208.0000 K/UL 04/18/2014 09:44 MPV 9.8000 FL 04/18/2014 09:44 %GRAN 64.2000 % 04/18/2014 09:44 %LYMPH 28.6000 % 04/18/2014 09:44 %MONO 5.3000 % 04/18/2014 09:44 %EOS 1.3000 % 04/18/2014 09:44 %BASO 0.6000 % 04/18/2014 09:44 #GRAN 5.2400 K/UL 04/18/2014 09:44 #LYMPH 2.3400 K/UL 04/18/2014 09:44 #MONO 0.4300 K/UL 04/18/2014 09:44 #EOS 0.1100 K/UL 04/18/2014 09:44 #BASO 0.0500 K/UL 04/18/2014 09:44 SLIDE REVIEWED? NOT INDICATED N/A 04/18/2014 09:44 MANUAL DIFF NOT INDICATED N/A 04/18/2014 09:44 Medications Medication Code Dose Units Frequency Route Modification Start Stop Date/Time Date/Time Clopidogrel 800624 75 MILLIGRA ORAL 08/24/2013 75MG Oral MS 10:59 Tablet Ambien 10MG 615799 10 MILLIGRA AT BEDTIME ORAL 04/11/2014 Oral Tablet MS 15:00 Proventil 499706 1-2 PUFF Every 4hr INHALATI 04/11/2014 0.09MG/Actuati as needed ON 15:00 on Inhalation Aerosol Powder Aspirin 81MG 067817 81 MILLIGRA DAILY ORAL 04/17/2014 Oral Tablet, MS 12:34 Enteric Coated Lisinopril 5MG 103247 5 MILLIGRA DAILY ORAL 04/17/2014 Oral Tablet MS 12:34 GlipiZIDE 5MG 050249 5 MILLIGRA TWICE A ORAL 04/17/2014 Oral Tablet MS DAY WITH 12:35 FOOD Metformin 892053 500 MILLIGRA TWICE ORAL 04/17/2014 500MG Oral MS DAILY WITH 12:35 Tablet FOOD Tylenol 325MG 291825 325 MILLIGRA Every 6hr ORAL 04/17/2014 Oral Tablet MS as needed 12:35 Nitroglycerin 093227 0.4 MILLIGRA EVERY 5 SUBLINGU 04/17/2014 0.4MG MS MINS x 3 AL 12:35 Sublingual NEEDED Tablet Medications Administered Unknown. Encounters Encounter Diagnosis Diagnosis Code [place] [address]183 04/18/2014 Social History Smoking Status Code Start Date End Date Current every day smoker 028786997 Patient Decision Aids Unknown. Discharge Instructions You were admitted to [facility] on 04/18/2014 with a principle diagnosis of CHEST PAIN NEC. You had the following procedures done:INJECT INFUSE NEC You were discharged from [facility] on 04/18/2014. Should you have any questions prior to discharge, please contact a member of your healthcare team. If you have left the hospital and have any questions, please contact your primary care physician. Chief Complaint and Reason For Visit Chief Complaint Date of Onset CHEST PAIN Function Status Unknown. Plan of Care Unknown. Referral/Transition of Care Unknown.
--- OUTSIDE RECORDS SUMMARY | 2017-03-13 14:12 | XMS REPORT | CCD ---
:1965 Author Name GATITO CABELLO Address [address] Unavailable [place], [place] [address] Care Team Providers Name Role Phone VARUN YANEZ Attending Physician Unavailable Vital Signs Unknown or Not Available. Allergies Allergy Code Allergy Type Reaction Status BENADRYL 687899 Drug allergy ITCHING Active CYCLOBENZAPRINE 53667 Drug allergy Active KETOROLAC 30963 Drug allergy ITCHING Active VALDEZ SEAL 0 Drug allergy Active TRAMADOL 86504 Drug allergy Active IMITREX NS SPR 20 MG 0 Drug allergy Active GABAPENTIN 84756 Drug allergy Active Procedures Procedure Code Procedure Type Date SHOULDER 2 OR 3 VWS [address] 6[address]18 SNOM[address] 10/06/2016 History of Immunizations Unknown or Not Available. 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 73820 11/02/2011 Active ARTERY BP (HIGH BLOOD PRESSURE) 01820262 11/02/2011 Active CLOSED DISPLACED FRACTURE OF FIFTH 14037108 Active METATARSAL BONE GASTRO - ESOPHAGEAL REFLUX DISEASE 236899792 Active H/O ACUTE MYOCARDIAL INFARCTION 412 Active ACTIVE SMOKER 71619690 Active CORRECTION CURRENT USE OF INSULIN 030582203 Active MIGRAINE 21495495 12/25/2011 Active CEPHALGIA 17389774 01/09/2012 Active CHEST PAIN 57043940 06/19/2012 Active CONTUSION OF BACK 14078163 07/16/2012 Active CONTUSION OF HIP 31707581 07/16/2012 Active CONTUSION OF FOOT 01044903 08/08/2012 Active CONTUSION OF ANKLE 05104231 08/08/2012 Active NAUSEA WITH VOMITING 87379277 10/11/2012 Active CONTUSION OF CHEST WALL 85824698 12/24/2012 Active CALCULUS OF URETER 07441612 02/10/2013 Active OTHER SPECIFIED DISORDER OF NERVOUS SYSTEM 353026655 04/01/2013 Active CALCULUS OF KIDNEY 82042236 05/29/2013 Active Mononeuritis of upper limb, unspecified 92046324 07/26/2013 Active Pain in joint involving upper arm 65645601 09/21/2013 Active Anxiety state, unspecified 757197532 10/30/2013 Active Sprain of other specified sites of elbow 028025578 11/20/2013 Active and forearm Head injury, unspecified 77009127 12/12/2013 Active Personal history of surgery to heart and 579838416 Active great vessels, presenting hazards to health Headache 59483837 12/13/2013 Active Unspecified essential hypertension 57352392 Active Malignant neoplasm of cervix uteri, 381198298 Active unspecified Results Unknown or Not Available. Active Medications Medication Code Dose Units Frequency Route Modification Start Date/Time Metformin 1000MG 014422 9019 MILLIGRAMS TWICE A DAY ORAL 07/29/2014 Oral Tablet 06:20 Prescription Detail TAKE 1000 MILLIGRAMS ORAL TWICE A DAY Medications Administered During Visit Unknown or Not Available. Encounters Encounter Diagnosis Diagnosis Code Start Date Fracture of right shoulder girdle, part unspecified, V1784DN 10/06/2016 subsequent encounter for fracture with routine healing Social History Smoking Status Code Start Date End Date Current every day smoker 042713648 11/27/1979 Patient Decision Aids Unknown or Not Available. Discharge Instructions You were admitted to [facility] on 10/06/2016 10:25 with a principal diagnosis of Fracture of right shoulder girdle, part unspecified, subsequent encounter You were discharged from [facility] on 10/06/2016 10:25 Should you have any questions prior to discharge, please contact a member of your healthcare team. If you have left the hospital and have any questions, please contact your primary care physician. Chief Complaint and Reason For Visit Unknown or Not Available. Function Status Unknown or Not Available. Plan of Care Unknown or Not Available. Referral/Transition of Care Unknown or Not Available.
--- OUTSIDE RECORDS SUMMARY | 2017-03-13 14:12 | XMS REPORT | CCD ---
:1965 Author Name KIMBERLI ROY Address [address] [facility] Unavailable [place], [place] [address] Care Team Providers Name Role Phone MED CHAIREZ MD Attending Physician Unavailable MED CHAIREZ MD Primary Surgery Doctor Unavailable SANDRINE RICCI Nurse Lead Applier Unavailable Vital Signs Unknown. Allergies Allergy Code Allergy Type Reaction Status TRAMADOL 0 Drug allergy (disorder) Active KETOROLAC 0 Drug allergy (disorder) Active GABAPENTIN 0 Drug allergy (disorder) Active IMITREX NS SPR 20 MG 0 Drug allergy (disorder) Active Procedures Unknown. History of Immunizations Unknown. 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 82379 11/02/2011 Active ARTERY BP (HIGH BLOOD PRESSURE) 63853628 11/02/2011 Active CLOSED DISPLACED FRACTURE OF FIFTH 52818483 Active METATARSAL BONE MIGRAINE 28779620 12/25/2011 Active GASTRO - ESOPHAGEAL REFLUX DISEASE 465407502 Active H/O ACUTE MYOCARDIAL INFARCTION 412 Active ACTIVE SMOKER 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 Medications Medication Code Dose Units Frequency Route Modification Start Stop Date/Time Date/Time Xanax 0.25MG 376817 0.25 MILLIGRAMS ORAL 08/24/2013 Oral Tablet 10:59 Pravastatin 904507 40 MILLIGRAMS Before bed ORAL 08/24/2013 40MG Oral 10:59 Tablet Metoprolol 970031 25 MILLIGRAMS ORAL 08/24/2013 25MG Oral 10:59 Tablet Clopidogrel 521822 75 MILLIGRAMS ORAL 08/24/2013 75MG Oral 10:59 Tablet GlipiZIDE 5MG 519312 5 MILLIGRAMS ORAL 08/24/2013 Oral Tablet 10:59 Aspirin 325MG 675462 325 MILLIGRAMS ORAL 08/24/2013 Oral Tablet 10:59 Medications Administered Unknown. Encounters Encounter Diagnosis Diagnosis Code Start Date JOINT PAIN-UP ARM 88974 09/21/2013 Social History Smoking Status Code Start Date End Date Current every day smoker 461164022 Patient Decision Aids Patient Decision Aid [facility] Patient Educational Materials Instructions You were admitted to [facility] on 09/21/2013 with a principle diagnosis of JOINT PAIN-UP ARM. You were discharged from [facility] on 09/21/2013. Should you have any questions prior to discharge, please contact a member of your healthcare team. If you have left the hospital and have any questions, please contact your primary care physician. Chief Complaint and Reason For Visit Chief Complaint Date of Onset Elbow injury Function Status Unknown. Plan of Care Unknown.
--- OUTSIDE RECORDS SUMMARY | 2017-03-13 14:12 | XMS REPORT | CCD ---
:1965 Author Name GATITO CABELLO Address [address] Unavailable [place], [place] [id number] Care Team Providers Name Role Phone JEB JAMES Attending Physician Unavailable Vital Signs Unknown. Allergies Allergy Code Allergy Type Reaction Status TRAMADOL 0 Drug allergy (disorder) Active KETOROLAC 0 Drug allergy (disorder) ITCHING Active GABAPENTIN 0 Drug allergy (disorder) Active IMITREX NS SPR 20 MG 0 Drug allergy (disorder) Active Procedures Procedure Code Procedure Type Date ABD 2 VWS DECUB OR UPRIGHT 24287932 SNOMED CT 12/20/2013 History of Immunizations Unknown. 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 61547 11/02/2011 Active ARTERY CALCULUS OF KIDNEY 94267187 05/29/2013 Active BP (HIGH BLOOD PRESSURE) 53004202 11/02/2011 Active CLOSED DISPLACED FRACTURE OF FIFTH 17987709 Active METATARSAL BONE GASTRO - ESOPHAGEAL REFLUX DISEASE 679266150 Active H/O ACUTE MYOCARDIAL INFARCTION 412 Active ACTIVE SMOKER 13149311 Active CUSTODIAL CURRENT USE OF INSULIN 178340161 Active CALCULUS OF URETER 60953274 02/10/2013 Active CONTUSION OF ANKLE 07600671 08/08/2012 Active CONTUSION OF FOOT 23563867 08/08/2012 Active CONTUSION OF CHEST WALL 08385678 12/24/2012 Active NAUSEA WITH VOMITING 19470848 10/11/2012 Active CHEST PAIN 20091259 06/19/2012 Active CEPHALGIA 31620337 01/09/2012 Active CONTUSION OF HIP 97227033 07/16/2012 Active CONTUSION OF BACK 35709791 07/16/2012 Active Results CBC Test Name Code Test Result Test Units Test Date/Time WBC 6690-2 7.7000 K/uL 12/20/2013 10:45 RBC 789-8 3.9700 M/uL 12/20/2013 10:45 HEMOGLOBIN 718-7 13.0000 g/dL 12/20/2013 10:45 HEMATOCRIT 38.8000 % 12/20/2013 10:45 MCV 97.7000 fL 12/20/2013 10:45 MCH 32.7000 PG 12/20/2013 10:45 MCHC 33.5000 G/DL 12/20/2013 10:45 RDW-SD 48.8000 FL 12/20/2013 10:45 RDW-CV 14.0000 % 12/20/2013 10:45 PLATELETS 169.0000 K/UL 12/20/2013 10:45 MPV 9.7000 FL 12/20/2013 10:45 %GRAN 66.0000 % 12/20/2013 10:45 %LYMPH 28.0000 % 12/20/2013 10:45 %MONO 4.5000 % 12/20/2013 10:45 %EOS 0.9000 % 12/20/2013 10:45 %BASO 0.6000 % 12/20/2013 10:45 #GRAN 5.0800 K/UL 12/20/2013 10:45 #LYMPH 2.1600 K/UL 12/20/2013 10:45 #MONO 0.3500 K/UL 12/20/2013 10:45 #EOS 0.0700 K/UL 12/20/2013 10:45 #BASO 0.0500 K/UL 12/20/2013 10:45 SLIDE REVIEWED? NOT INDICATED N/A 12/20/2013 10:45 MANUAL DIFF NOT INDICATED N/A 12/20/2013 10:45 Medications Medication Code Dose Units Frequency Route Modification Start Stop Date/Time Date/Time Pravastatin 557198 40 MILLIGRAMS Before bed ORAL 08/24/2013 40MG Oral 10:59 Tablet Clopidogrel 699742 75 MILLIGRAMS ORAL 08/24/2013 75MG Oral 10:59 Tablet Aspirin 325MG 021101 325 MILLIGRAMS ORAL 08/24/2013 Oral Tablet 10:59 Lisinopril 223197 20 MILLIGRAMS DAILY ORAL 11/20/2013 20MG Oral 21:32 Tablet GlipiZIDE 894801 10 MILLIGRAMS DAILY ORAL 11/20/2013 10MG Oral 21:32 Tablet Hydrocodone 827235 1 TABLET Every BY For pain 11/29/2013 Bitart/Acet 4-6hr PRN MOUTH 01:37 325MG-5MG Oral Tablet Medications Administered Unknown. Encounters Encounter Diagnosis Diagnosis Code Start Date ABDOMINAL PAIN, LEFT LOWER QUADRANT 03603 12/20/2013 Social History Smoking Status Code Start Date End Date Current every day smoker 729395259 Patient Decision Aids Unknown. Instructions You were admitted to [facility] on 12/20/2013 with a principle diagnosis of ABDOMINAL PAIN, LEFT LOWER QUADRANT. You had the following tests done:[id number]%GRAN%LYMPH% MONO%EOS%BASO# GRAN#LYMPH#MONO#EOS#BASOSLIDE REVIEWED?MANUAL DIFF You were discharged from [facility] on 12/20/2013. Should you have any questions prior to discharge, please contact a member of your healthcare team. If you have left the hospital and have any questions, please contact your primary care physician. Chief Complaint and Reason For Visit Unknown. Function Status Unknown. Plan of Care Unknown. Referral/Transition of Care Unknown.
--- OUTSIDE RECORDS SUMMARY | 2017-03-13 14:12 | XMS REPORT | CCD ---
:1965 Author Name GATITO CABELLO Address [address] [facility] [place] [address] Care Team Providers Name Role Phone SHERRIE VERA Attending Physician Unavailable SHERRIE VERA Er Physician 1 Unavailable Allergies Allergy Code Allergy Type Reaction Status BENADRYL 056920 Drug allergy ITCHING Active CYCLOBENZAPRINE 74936 Drug allergy Active KETOROLAC 67040 Drug allergy ITCHING Active TRAMADOL 33200 Drug allergy Active IMITREX NS SPR 20 MG 0 Drug allergy Active GABAPENTIN 82944 Drug allergy Active Active Medications Medication Code Dose Units Frequency Route Modification Start Date/Time Metformin 1000MG 667932 6668 MILLIGRAMS TWICE A DAY ORAL 07/29/2014 Oral Tablet 06:20 Prescription Detail TAKE 1000 MILLIGRAMS ORAL TWICE A DAY Problems Problem Code Start Date Resolved Date Status DIZZINESS 456467252 11/02/2011 Active DIABETES MELLITUS 77174808 11/02/2011 Active 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 41180 11/02/2011 Active ARTERY BP (HIGH BLOOD PRESSURE) 47453875 11/02/2011 Active CLOSED DISPLACED FRACTURE OF FIFTH 99514309 Active METATARSAL BONE GASTRO - ESOPHAGEAL REFLUX DISEASE 853301395 Active H/O ACUTE MYOCARDIAL INFARCTION 412 Active ACTIVE SMOKER 97725025 Active 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 375694574 Active MIGRAINE 02309388 12/25/2011 Active CEPHALGIA 03611029 01/09/2012 Active CHEST PAIN 85422575 06/19/2012 Active CONTUSION OF BACK 93654947 07/16/2012 Active CONTUSION OF HIP 30814695 07/16/2012 Active CONTUSION OF FOOT 21240485 08/08/2012 Active CONTUSION OF ANKLE 30292473 08/08/2012 Active NAUSEA WITH VOMITING 27098986 10/11/2012 Active CONTUSION OF CHEST WALL 44096438 12/24/2012 Active CALCULUS OF URETER 64626756 02/10/2013 Active OTHER SPECIFIED DISORDER OF NERVOUS SYSTEM 435999150 04/01/2013 Active CALCULUS OF KIDNEY 95359669 05/29/2013 Active Mononeuritis of upper limb, unspecified 28192710 07/26/2013 Active Pain in joint involving upper arm 26272805 09/21/2013 Active Anxiety state, unspecified 084224937 10/30/2013 Active Sprain of other specified sites of elbow 550532658 11/20/2013 Active and forearm Head injury, unspecified 65214918 12/12/2013 Active Personal history of surgery to heart and 769199341 Active great vessels, presenting hazards to health Headache 49566605 12/13/2013 Active Unspecified essential hypertension 88658627 Active Malignant neoplasm of cervix uteri, 435087382 Active unspecified Procedures Unknown or Not Available. Results Unknown or Not Available. Function Status Unknown or Not Available. History of Immunizations Unknown or Not Available. Plan of Treatment Unknown or Not Available. Social History Smoking Status Code Start Date End Date Current every day smoker 630608730 11/27/1979 Vital Signs Unknown or Not Available. Function Status Unknown or Not Available. Goals Unknown or Not Available. ASSESSMENTS Unknown or Not Available. Health Concerns Section Unknown or Not Available.
--- OUTSIDE RECORDS SUMMARY | 2017-03-13 14:12 | XMS REPORT | CCD ---
:1965 Author Name GATITO CABELLO Address [address] [facility] [place] [address] Care Team Providers Name Role Phone SHERRIE VERA Attending Physician Unavailable SHERRIE VERA Er Physician 1 Unavailable Allergies Allergy Code Allergy Type Reaction Status BENADRYL 421747 Drug allergy ITCHING Active CYCLOBENZAPRINE 68527 Drug allergy Active KETOROLAC 08723 Drug allergy ITCHING Active TRAMADOL 98454 Drug allergy Active IMITREX NS SPR 20 MG 0 Drug allergy Active GABAPENTIN 23843 Drug allergy Active Active Medications Medication Code Dose Units Frequency Route Modification Start Date/Time Metformin 1000MG 747815 3909 MILLIGRAMS TWICE A DAY ORAL 07/29/2014 Oral Tablet 06:20 Prescription Detail TAKE 1000 MILLIGRAMS ORAL TWICE A DAY Problems Problem Code Start Date Resolved Date Status DIZZINESS 133568016 11/02/2011 Active DIABETES MELLITUS 53298080 11/02/2011 Active 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 49198 11/02/2011 Active ARTERY BP (HIGH BLOOD PRESSURE) 18217835 11/02/2011 Active CLOSED DISPLACED FRACTURE OF FIFTH 50904247 Active METATARSAL BONE GASTRO - ESOPHAGEAL REFLUX DISEASE 969750957 Active H/O ACUTE MYOCARDIAL INFARCTION 412 Active ACTIVE SMOKER 96157065 Active 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 124059614 Active MIGRAINE 66778161 12/25/2011 Active CEPHALGIA 84824206 01/09/2012 Active CHEST PAIN 97817415 06/19/2012 Active CONTUSION OF BACK 20330292 07/16/2012 Active CONTUSION OF HIP 47615238 07/16/2012 Active CONTUSION OF FOOT 07281677 08/08/2012 Active CONTUSION OF ANKLE 89666389 08/08/2012 Active NAUSEA WITH VOMITING 62466746 10/11/2012 Active CONTUSION OF CHEST WALL 72661807 12/24/2012 Active CALCULUS OF URETER 96648403 02/10/2013 Active OTHER SPECIFIED DISORDER OF NERVOUS SYSTEM 835382301 04/01/2013 Active CALCULUS OF KIDNEY 22175439 05/29/2013 Active Mononeuritis of upper limb, unspecified 40350985 07/26/2013 Active Pain in joint involving upper arm 19560285 09/21/2013 Active Anxiety state, unspecified 646261275 10/30/2013 Active Sprain of other specified sites of elbow 521671478 11/20/2013 Active and forearm Head injury, unspecified 29216793 12/12/2013 Active Personal history of surgery to heart and 780299283 Active great vessels, presenting hazards to health Headache 84735203 12/13/2013 Active Unspecified essential hypertension 56954958 Active Malignant neoplasm of cervix uteri, 866966653 Active unspecified Procedures Procedure Code Procedure Type Date EKG 08460398 SNOMED CT 04/20/[address] 04/20/2016 CHEST [address] 04/20/2016 Results COMPREHENSIVE METABOLIC PANEL - Collect Date/Time: 04/20/2016 08:37 Test Name Code Test Result Test Units Test Ref Range GLUCOSE 583 mg/dL L=74 H=106 SODIUM 130 mmol/L L=136 H=145 POTASSIUM 5.3 mmol/L L=3.5 H=5.1 CHLORIDE 97 mmol/L L=98 H=107 CO2 20 mmol/L L=21 H=32 BUN 25.0 mg/dL L=7.0 H=18.0 CREATININE 1.8 mg/dL L=0.6 H=1.0 BUN/CREAT 13.9 L=7.6 H=21.2 CALCIUM 9.1 mg/dL L=8.6 H=10.1 TOTAL BILI 0.3 mg/dL L=0.2 H=1.0 TOTAL PROTEIN 7.6 g/dL L=6.4 H=8.2 ALBUMIN 3.7 g/dL L=3.4 H=5.0 A/G RATIO 0.9 ALKALINE PHOS 122 IU/L L=50 H=136 AST/SGOT 5 IU/L L=15 H=37 ALT/SGPT 15 IU/L L=12 H=78 ANION GAP 18.1 mmol/L L=7.0 H=16.0 AGE 50 YEARS GFR 31.53 ml/min MAGNESIUM, SERUM OR PLASMA - Collect Date/Time: 04/20/2016 08:37 Test Name Code Test Result Test Units Test Ref Range MAGNESIUM 1.9 mg/dL L=1.8 H=2.4 TROPONIN QUANTITATIVE - Collect Date/Time: 04/20/2016 08:37 Test Name Code Test Result Test Units Test Ref Range TROPONIN I 0.054 ng/mL L=0.000 H=0.060 pro-BRAIN NATRIURETIC PEPTIDE - Collect Date/Time: 04/20/2016 08:37 Test Name Code Test Result Test Units Test Ref Range BNP 391.0 pg/ml L=0.0 H=125 CBC W/DIFF - Collect Date/Time: 04/20/2016 08:37 Test Name Code Test Result Test Units Test Ref Range WBC 6690-2 8.6 K/uL L=3.2 H=10.0 RBC 789-8 3.80 M/uL L=4.00 H=5.20 HEMOGLOBIN 718-7 13.6 g/dL L=12.1 H=15.6 HEMATOCRIT 39.2 % L=35.0 H=47.0 MCV 103.2 fL L=81.0 H=101 MCH 35.8 PG L=26.0 H=38.0 MCHC 34.7 G/DL L=31.0 H=37.0 RDW-SD 52.1 FL L=37.0 H=54.0 RDW-CV 14.1 % L=11.0 H=16.0 PLATELETS 777-3 162 K/UL L=140 H=380 MPV 10.2 FL L=9.0 H=13.0 %GRAN 86.6 % L=0.0 H=75.0 %LYMPH 10.9 % L=0.0 H=50.0 %MONO 2.3 % L=0.0 H=14.0 %EOS 0.0 % L=0.0 H=6.0 %BASO 0.2 % L=0.0 H=1.0 #GRAN 7.45 K/UL L=1.80 H=7.80 #LYMPH 0.94 K/UL L=0.30 H=4.00 #MONO 0.20 K/UL L=0.00 H=0.70 #EOS 0.00 K/UL L=0.00 H=0.40 #BASO 0.02 K/UL L=0.00 H=0.10 SLIDE REVIEWED? NOT INDICATED N/A MANUAL DIFF NOT INDICATED N/A Function Status Unknown or Not Available. History of Immunizations Unknown or Not Available. Plan of Treatment Unknown or Not Available. Social History Smoking Status Code Start Date End Date Current every day smoker 880012861 11/27/1979 Vital Signs Unknown or Not Available. Function Status Unknown or Not Available. Goals Unknown or Not Available. ASSESSMENTS Unknown or Not Available. Health Concerns Section Unknown or Not Available.
--- OUTSIDE RECORDS SUMMARY | 2017-03-13 14:12 | XMS REPORT | CCD ---
:1965 Author Name KIMBERLI ROY Address [address] [place], [place] [id number] Care Team Providers Name Role Phone SANTINO DYER Attending Physician Unavailable SANTINO DYER Er Physician 1 Unavailable SANDRINE Traylor Registered Nurse Unavailable Vital Signs Vital Sign Value Unit Date/Time Recent/Initial? Weight Measured 172 lbs 05/29/2015 11:38 Initial VS Height 68 in 05/29/2015 11:38 Initial VS BMI (Body Mass Index) 26.15 kg/m^2 05/29/2015 11:38 Initial VS BSA (Body Surface Area) 1.93 m^2 05/29/2015 11:38 Initial VS Allergies Allergy Code Allergy Type Reaction Status CYCLOBENZAPRINE 14778 Drug allergy Active KETOROLAC 80056 Drug allergy ITCHING Active TRAMADOL 59699 Drug allergy Active IMITREX NS SPR 20 MG 0 Drug allergy Active GABAPENTIN 14740 Drug allergy Active Procedures Procedure Code Procedure Type Date Injection or infusion of therapeutic or 9929 ICD-9 CM, Volume 3 05/29/2015 prophylactic substance EKG 21836236 SNOMED CT 05/29/2015 CHEST [address] 05/29/2015 History of Immunizations Unknown or Not Available. 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 55722 11/02/2011 Active ARTERY BP (HIGH BLOOD PRESSURE) 65872556 11/02/2011 Active CLOSED DISPLACED FRACTURE OF FIFTH 54573658 Active METATARSAL BONE GASTRO - ESOPHAGEAL REFLUX DISEASE 090845090 Active H/O ACUTE MYOCARDIAL INFARCTION 412 Active ACTIVE SMOKER 23513075 Active [facility] CURRENT USE OF INSULIN 940864293 Active MIGRAINE 56202088 12/25/2011 Active CEPHALGIA 65592282 01/09/2012 Active CHEST PAIN 04506298 06/19/2012 Active CONTUSION OF BACK 88073817 07/16/2012 Active CONTUSION OF HIP 14036877 07/16/2012 Active CONTUSION OF FOOT 73276157 08/08/2012 Active CONTUSION OF ANKLE 63143266 08/08/2012 Active NAUSEA WITH VOMITING 66176317 10/11/2012 Active CONTUSION OF CHEST WALL 71967378 12/24/2012 Active CALCULUS OF URETER 98010586 02/10/2013 Active OTHER SPECIFIED DISORDER OF NERVOUS SYSTEM 614014700 04/01/2013 Active CALCULUS OF KIDNEY 20597049 05/29/2013 Active Mononeuritis of upper limb, unspecified 72745193 07/26/2013 Active Pain in joint involving upper arm 77380373 09/21/2013 Active Anxiety state, unspecified 629579041 10/30/2013 Active Sprain of other specified sites of elbow 631354480 11/20/2013 Active and forearm Head injury, unspecified 32526847 12/12/2013 Active Personal history of surgery to heart and 829988099 Active great vessels, presenting hazards to health Headache 62446071 12/13/2013 Active Unspecified essential hypertension 79716283 Active Malignant neoplasm of cervix uteri, 354620791 Active unspecified Results AMYLASE, SERUM OR PLASMA - Collect Date/Time: 05/29/2015 12:24 Test Name Code Test Result Test Units Test Ref Range AMYLASE 107 U/L L=25 H=115 CARDIAC ENZYMES - Collect Date/Time: 05/29/2015 12:24 Test Name Code Test Result Test Units Test Ref Range CPK 28 U/L L=26 H=192 CK-MB 1.1 ng/mL L=0.0 H=3.7 CK-MB INDEX 3.9 % TROPONIN I 0.049 ng/mL L=0.000 H=0.060 COMPREHENSIVE METABOLIC PANEL - Collect Date/Time: 05/29/2015 12:24 Test Name Code Test Result Test Units Test Ref Range GLUCOSE 247 mg/dL L=74 H=106 SODIUM 140 mmol/L L=136 H=145 POTASSIUM 4.0 mmol/L L=3.5 H=5.1 CHLORIDE 105 mmol/L L=98 H=107 CO2 24 mmol/L L=21 H=32 BUN 22.0 mg/dL L=7.0 H=18.0 CREATININE 1.2 mg/dL L=0.6 H=1.0 BUN/CREAT 18.3 L=7.6 H=21.2 CALCIUM 8.6 mg/dL L=8.6 H=10.1 TOTAL BILI 0.2 mg/dL L=0.2 H=1.0 TOTAL PROTEIN 6.7 g/dL L=6.4 H=8.2 ALBUMIN 3.3 g/dL L=3.4 H=5.0 A/G RATIO 1.0 ALKALINE PHOS 109 IU/L L=50 H=136 AST/SGOT 8 IU/L L=15 H=37 ALT/SGPT 14 IU/L L=12 H=78 ANION GAP 14.7 mmol/L L=7.0 H=16.0 AGE 49 YEARS GFR 50.54 ml/min I-STAT, BASIC METABOLIC - Collect Date/Time: 05/29/2015 12:39 Test Name Code Test Result Test Units Test Ref Range Sodium 140 mmol/L L=138 H=146 Potassium 4.0 mmol/L L=3.5 H=4.9 Chloride 108 mmol/L L=98 H=109 Calcium Ionized 1.17 mmol/L L=1.12 H=1.32 TCO2 22 mmol/L L=24 H=29 Glucose 243 mg/dl L=70 H=105 Urea Nitrogen (BUN) 25.0 mg/dl L=8.0 H=26.0 Creatinine 1.2 mg/dl L=0.6 H=1.3 Anion Gap 15.0 mmol/L L=10.0 H=20.0 LIPASE - Collect Date/Time: 05/29/2015 12:24 Test Name Code Test Result Test Units Test Ref Range LIPASE 99 U/L L=73 H=393 I-STAT, CK-MB - Collect Date/Time: 05/29/2015 12:39 Test Name Code Test Result Test Units Test Ref Range CKMB 0.7 ng/ml L=0.0 H=3.5 I-STAT, TROPONIN-I - Collect Date/Time: 05/29/2015 12:39 Test Name Code Test Result Test Units Test Ref Range Troponin-I 0.04 ng/ml L=0.00 H=0.08 CBC W/DIFF - Collect Date/Time: 05/29/2015 12:24 Test Name Code Test Result Test Units Test Ref Range WBC 6690-2 7.5 K/uL L=3.2 H=10.0 RBC 789-8 3.55 M/uL L=4.00 H=5.20 HEMOGLOBIN 718-7 12.0 g/dL L=12.1 H=15.6 HEMATOCRIT 35.9 % L=35.0 H=47.0 MCV 101.1 fL L=81.0 H=101 MCH 33.8 PG L=26.0 H=38.0 MCHC 33.4 G/DL L=31.0 H=37.0 RDW-SD 54.6 FL L=37.0 H=54.0 RDW-CV 15.1 % L=11.0 H=16.0 PLATELETS 157 K/UL L=140 H=380 MPV 9.6 FL L=9.0 H=13.0 %GRAN 62.9 % L=0.0 H=75.0 %LYMPH 30.3 % L=0.0 H=50.0 %MONO 5.2 % L=0.0 H=14.0 %EOS 1.3 % L=0.0 H=6.0 %BASO 0.3 % L=0.0 H=1.0 #GRAN 4.71 K/UL L=1.80 H=7.80 #LYMPH 2.27 K/UL L=0.30 H=4.00 #MONO 0.39 K/UL L=0.00 H=0.70 #EOS 0.10 K/UL L=0.00 H=0.40 #BASO 0.02 K/UL L=0.00 H=0.10 SLIDE REVIEWED? NOT INDICATED N/A MANUAL DIFF NOT INDICATED N/A Active Medications Medication Code Dose Units Frequency Route Modification Start Date/Time Metformin 1000MG 145886 5398 MILLIGRAMS TWICE A DAY ORAL 07/29/2014 Oral Tablet 06:20 Medications Administered During Visit Unknown or Not Available. Encounters Encounter Diagnosis Diagnosis Code Start Date CHEST PAIN NEC 43029 05/29/2015 Social History Smoking Status Code Start Date End Date Current every day smoker 399126080 11/27/1979 Patient Decision Aids Unknown or Not Available. Discharge Instructions You were admitted to [facility] on 05/29/2015 with a principal diagnosis of CHEST PAIN NEC. You had the following procedures done:INJECT INFUSE NEC You were discharged from [facility] on 05/29/2015. Should you have any questions prior to discharge, please contact a member of your healthcare team. If you have left the hospital and have any questions, please contact your primary care physician. Chief Complaint and Reason For Visit Chief Complaint Date of Onset CHEST PAIN Function Status Unknown or Not Available. Plan of Care Unknown or Not Available. Referral/Transition of Care Unknown or Not Available.
--- OUTSIDE RECORDS SUMMARY | 2017-03-13 14:12 | XMS REPORT | CCD ---
:1965 Author Name GATITO CABELLO Address [address] Unavailable [place], [place] [id number] Care Team Providers Name Role Phone THAI ANGEL Attending Physician Unavailable THAI ANGEL Er Physician 1 Unavailable Vital Signs Unknown or Not Available. Allergies Allergy Code Allergy Type Reaction Status BENADRYL 403811 Drug allergy ITCHING Active CYCLOBENZAPRINE 00887 Drug allergy Active KETOROLAC 14772 Drug allergy ITCHING Active TRAMADOL 88320 Drug allergy Active IMITREX NS SPR 20 MG 0 Drug allergy Active GABAPENTIN 27596 Drug allergy Active Procedures Unknown or Not Available. History of Immunizations Unknown or Not Available. 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 02771 11/02/2011 Active ARTERY BP (HIGH BLOOD PRESSURE) 25325508 11/02/2011 Active CLOSED DISPLACED FRACTURE OF FIFTH 24932600 Active METATARSAL BONE GASTRO - ESOPHAGEAL REFLUX DISEASE 743718351 Active H/O ACUTE MYOCARDIAL INFARCTION 412 Active ACTIVE SMOKER 09019542 Active INTERMEDIATE CURRENT USE OF INSULIN 996794776 Active MIGRAINE 59457118 12/25/2011 Active CEPHALGIA 32066580 01/09/2012 Active CHEST PAIN 71427737 06/19/2012 Active CONTUSION OF BACK 62506003 07/16/2012 Active CONTUSION OF HIP 87718464 07/16/2012 Active CONTUSION OF FOOT 50467197 08/08/2012 Active CONTUSION OF ANKLE 75740588 08/08/2012 Active NAUSEA WITH VOMITING 33772634 10/11/2012 Active CONTUSION OF CHEST WALL 90535431 12/24/2012 Active CALCULUS OF URETER 77687365 02/10/2013 Active OTHER SPECIFIED DISORDER OF NERVOUS SYSTEM 624506855 04/01/2013 Active CALCULUS OF KIDNEY 84508773 05/29/2013 Active Mononeuritis of upper limb, unspecified 29464348 07/26/2013 Active Pain in joint involving upper arm 32892822 09/21/2013 Active Anxiety state, unspecified 419817292 10/30/2013 Active Sprain of other specified sites of elbow 717662959 11/20/2013 Active and forearm Head injury, unspecified 83083644 12/12/2013 Active Personal history of surgery to heart and 541218315 Active great vessels, presenting hazards to health Headache 52829409 12/13/2013 Active Unspecified essential hypertension 49937020 Active Malignant neoplasm of cervix uteri, 838864006 Active unspecified Results Unknown or Not Available. Active Medications Medication Code Dose Units Frequency Route Modification Start Date/Time Metformin 1000MG 516317 6690 MILLIGRAMS TWICE A DAY ORAL 07/29/2014 Oral Tablet 06:20 Prescription Detail TAKE 1000 MILLIGRAMS ORAL TWICE A DAY Medications Administered During Visit Unknown or Not Available. Encounters Encounter Diagnosis Diagnosis Code Start Date Acute bronchitis, unspecified J209 04/06/2016 Social History Smoking Status Code Start Date End Date Current every day smoker 855642433 11/27/1979 Patient Decision Aids Unknown or Not Available. Discharge Instructions You were admitted to [facility] on 04/06/2016 10:44 with a principal diagnosis of Acute bronchitis, unspecified You were discharged from [facility] on 04/06/2016 13:02 Should you have any questions prior to discharge, please contact a member of your healthcare team. If you have left the hospital and have any questions, please contact your primary care physician. Chief Complaint and Reason For Visit Chief Complaint Date of Onset FEVER COUGH Function Status Unknown or Not Available. Plan of Care Unknown or Not Available. Referral/Transition of Care Unknown or Not Available.
--- OUTSIDE RECORDS SUMMARY | 2017-03-13 14:12 | XMS REPORT | CCD ---
:1965 Author Name JOHNNIE ARROYO Address [address] [facility] Unavailable [place], [place] [address] Care Team Providers Name Role Phone AILEEN CRUZ Attending Physician Unavailable AILEEN CRUZ Er Physician 1 Unavailable DORIS Feliciano Registered Nurse Unavailable Vital Signs Vital Sign Value Unit Weight Measured 180 lbs Height 67 in BMI (Body Mass Index) 28.19 kg/m^2 BSA (Body Surface Area) 1.96 m^2 Allergies Allergy Code Allergy Type Reaction Status KETOROLAC 0 Drug allergy (disorder) ITCHING Active TRAMADOL 0 Drug allergy (disorder) Active IMITREX NS SPR 20 MG 0 Drug allergy (disorder) Active GABAPENTIN 0 Drug allergy (disorder) Active Procedures Unknown. History of Immunizations Unknown. 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 94060 11/02/2011 Active ARTERY BP (HIGH BLOOD PRESSURE) 64832910 11/02/2011 Active CLOSED DISPLACED FRACTURE OF FIFTH 50198291 Active METATARSAL BONE GASTRO - ESOPHAGEAL REFLUX DISEASE 710395860 Active H/O ACUTE MYOCARDIAL INFARCTION 412 Active ACTIVE SMOKER 03140624 Active SNF CURRENT USE OF INSULIN 894674924 Active MIGRAINE 51607038 12/25/2011 Active CEPHALGIA 34019117 01/09/2012 Active CHEST PAIN 48004923 06/19/2012 Active CONTUSION OF BACK 17264056 07/16/2012 Active CONTUSION OF HIP 47531757 07/16/2012 Active CONTUSION OF FOOT 16577278 08/08/2012 Active CONTUSION OF ANKLE 34103192 08/08/2012 Active NAUSEA WITH VOMITING 56331425 10/11/2012 Active CONTUSION OF CHEST WALL 43551001 12/24/2012 Active CALCULUS OF URETER 28789741 02/10/2013 Active OTHER SPECIFIED DISORDER OF NERVOUS SYSTEM 776942440 04/01/2013 Active CALCULUS OF KIDNEY 34204180 05/29/2013 Active Mononeuritis of upper limb, unspecified 60911107 07/26/2013 Active Pain in joint involving upper arm 37817413 09/21/2013 Active Anxiety state, unspecified 912077326 10/30/2013 Active Sprain of other specified sites of elbow 654588634 11/20/2013 Active and forearm Head injury, unspecified 55964468 12/12/2013 Active Personal history of surgery to heart and 523389803 Active great vessels, presenting hazards to [facility] 86922893 12/13/2013 Active Results Unknown. Medications Medication Code Dose Units Frequency Route Modification Start Stop Date/Time Date/Time Pravastatin 429701 40 MILLIGRAMS Before bed ORAL 08/24/2013 40MG Oral 10:59 Tablet Clopidogrel 460437 75 MILLIGRAMS ORAL 08/24/2013 75MG Oral 10:59 Tablet Aspirin 325MG 269477 325 MILLIGRAMS ORAL 08/24/2013 Oral Tablet 10:59 Lisinopril 099885 20 MILLIGRAMS DAILY ORAL 11/20/2013 20MG Oral 21:32 Tablet GlipiZIDE 215381 10 MILLIGRAMS DAILY ORAL 11/20/2013 10MG Oral 21:32 Tablet Hydrocodone 786493 1 TABLET Every BY For pain 11/29/2013 Bitart/Acet 4-6hr PRN MOUTH 01:37 325MG-5MG Oral Tablet Medications Administered Unknown. Encounters Encounter Diagnosis Diagnosis Code Start Date TENSION HEADACHE 91932 12/24/2013 Social History Smoking Status Code Start Date End Date Current every day smoker [id number] Patient Decision Aids Patient Decision Aid [facility] Patient Educational Materials Instructions You were admitted to [facility] on 12/24/2013 with a principle diagnosis of TENSION HEADACHE. You were discharged from [facility] on 12/24/2013. Should you have any questions prior to discharge, please contact a member of your healthcare team. If you have left the hospital and have any questions, please contact your primary care physician. Chief Complaint and Reason For Visit Unknown. Function Status Unknown. Plan of Care Unknown. Referral/Transition of Care Unknown.
--- OUTSIDE RECORDS SUMMARY | 2017-03-13 14:12 | XMS REPORT | CCD ---
:1965 Author Name GATITO CABELLO Address [address] Unavailable [place], [place] [id number] Care Team Providers Name Role Phone ELAINE ACOSTA Attending Physician Unavailable ELAINE ACOSTA Er Physician 1 Unavailable Vital Signs Unknown or Not Available. Allergies Allergy Code Allergy Type Reaction Status BENADRYL 525773 Drug allergy ITCHING Active CYCLOBENZAPRINE 17088 Drug allergy Active KETOROLAC 30125 Drug allergy ITCHING Active TRAMADOL 38688 Drug allergy Active IMITREX NS SPR 20 MG 0 Drug allergy Active GABAPENTIN 16413 Drug allergy Active Procedures Procedure Code Procedure Type Date FOOT [id number] 02/22/2016 History of Immunizations Unknown or Not Available. 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 19327 11/02/2011 Active ARTERY BP (HIGH BLOOD PRESSURE) 25134642 11/02/2011 Active CLOSED DISPLACED FRACTURE OF FIFTH 57335594 Active METATARSAL BONE GASTRO - ESOPHAGEAL REFLUX DISEASE 599874164 Active H/O ACUTE MYOCARDIAL INFARCTION 412 Active ACTIVE SMOKER 64036365 Active [facility] CURRENT USE OF INSULIN 198341888 Active MIGRAINE 75163417 12/25/2011 Active CEPHALGIA 65652389 01/09/2012 Active CHEST PAIN 52993534 06/19/2012 Active CONTUSION OF BACK 25270083 07/16/2012 Active CONTUSION OF HIP 47771933 07/16/2012 Active CONTUSION OF FOOT 95226344 08/08/2012 Active CONTUSION OF ANKLE 35398259 08/08/2012 Active NAUSEA WITH VOMITING 03781762 10/11/2012 Active CONTUSION OF CHEST WALL 56058656 12/24/2012 Active CALCULUS OF URETER 98457393 02/10/2013 Active OTHER SPECIFIED DISORDER OF NERVOUS SYSTEM 714370222 04/01/2013 Active CALCULUS OF KIDNEY 62932265 05/29/2013 Active Mononeuritis of upper limb, unspecified 96499948 07/26/2013 Active Pain in joint involving upper arm 22909095 09/21/2013 Active Anxiety state, unspecified 528105636 10/30/2013 Active Sprain of other specified sites of elbow 846197772 11/20/2013 Active and forearm Head injury, unspecified 92830779 12/12/2013 Active Personal history of surgery to heart and 966086282 Active great vessels, presenting hazards to health Headache 89703592 12/13/2013 Active Unspecified essential hypertension 38955097 Active Malignant neoplasm of cervix uteri, 235427340 Active unspecified Results Unknown or Not Available. Active Medications Medication Code Dose Units Frequency Route Modification Start Date/Time Metformin 1000MG 200293 8953 MILLIGRAMS TWICE A DAY ORAL 07/29/2014 Oral Tablet 06:20 Prescription Detail TAKE 1000 MILLIGRAMS ORAL TWICE A DAY Medications Administered During Visit Unknown or Not Available. Encounters Encounter Diagnosis Diagnosis Code Start Date Contusion of right foot, initial encounter [id number] 02/22/2016 Social History Smoking Status Code Start Date End Date Current every day smoker 835753764 11/27/1979 Patient Decision Aids Unknown or Not Available. Discharge Instructions You were admitted to [facility] on 02/22/2016 17:37 with a principal diagnosis of Contusion of right foot, initial encounter You were discharged from [facility] on 02/22/2016 18:40 Should you have any questions prior to discharge, please contact a member of your healthcare team. If you have left the hospital and have any questions, please contact your primary care physician. Chief Complaint and Reason For Visit Chief Complaint Date of Onset POSS BROKEN TOES Function Status Unknown or Not Available. Plan of Care Unknown or Not Available. Referral/Transition of Care Unknown or Not Available.
--- OUTSIDE RECORDS SUMMARY | 2017-03-13 14:12 | XMS REPORT | CCD ---
:1965 Author Name ARNIE CRUMP Address [address] Unavailable [place], [place] [id number] Care Team Providers Name Role Phone VARUN YANEZ Attending Physician Unavailable Vital Signs Unknown or Not Available. Allergies Allergy Code Allergy Type Reaction Status BENADRYL 699367 Drug allergy ITCHING Active CYCLOBENZAPRINE 32993 Drug allergy Active KETOROLAC 30496 Drug allergy ITCHING Active VALDEZ SEAL 0 Drug allergy Active TRAMADOL 46470 Drug allergy Active IMITREX NS SPR 20 MG 0 Drug allergy Active GABAPENTIN 48704 Drug allergy Active Procedures Unknown or Not Available. History of Immunizations Unknown or Not Available. 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 868368618 Active MIGRAINE 72333339 12/25/2011 Active CEPHALGIA 68476801 01/09/2012 Active CHEST PAIN 93728348 06/19/2012 Active CONTUSION OF BACK 94212168 07/16/2012 Active CONTUSION OF HIP 11170204 07/16/2012 Active CONTUSION OF FOOT 10429108 08/08/2012 Active CONTUSION OF ANKLE 84470751 08/08/2012 Active NAUSEA WITH VOMITING 68581622 10/11/2012 Active CONTUSION OF CHEST WALL 85441168 12/24/2012 Active CALCULUS OF URETER 30684755 02/10/2013 Active OTHER SPECIFIED DISORDER OF NERVOUS SYSTEM 245604533 04/01/2013 Active CALCULUS OF KIDNEY 13350528 05/29/2013 Active Mononeuritis of upper limb, unspecified 42707227 07/26/2013 Active Pain in joint involving upper arm 00594037 09/21/2013 Active Anxiety state, unspecified 233247669 10/30/2013 Active Sprain of other specified sites of elbow 664316483 11/20/2013 Active and forearm Head injury, unspecified 81263507 12/12/2013 Active Personal history of surgery to heart and 057491604 Active great vessels, presenting hazards to health Headache 70102606 12/13/2013 Active Unspecified essential hypertension 25289657 Active Malignant neoplasm of cervix uteri, 409363425 Active unspecified Results Unknown or Not Available. Active Medications Medication Code Dose Units Frequency Route Modification Start Date/Time Metformin 1000MG 965352 6083 MILLIGRAMS TWICE A DAY ORAL 07/29/2014 Oral Tablet 06:20 Prescription Detail TAKE 1000 MILLIGRAMS ORAL TWICE A DAY Medications Administered During Visit Unknown or Not Available. Encounters Encounter Diagnosis Diagnosis Code Start Date Displaced fracture of greater tuberosity of right humerus, [id number] 09/14/2016 initial encounter for closed fracture Social History Smoking Status Code Start Date End Date Current every day smoker 139471001 11/27/1979 Patient Decision Aids Unknown or Not Available. Discharge Instructions You were admitted to [facility] on 09/14/2016 10:52 with a principal diagnosis of Displaced fracture of greater tuberosity of right humerus, initial encount You were discharged from [facility] on 09/14/2016 10:52 Should you have any questions prior to [...]
--- OUTSIDE RECORDS SUMMARY | 2017-03-13 14:12 | XMS REPORT | CCD ---
:1965 Author Name KIMBERLI ROY Dustin Address [address] [facility] Unavailable [place], [place] [address] Care Team Providers Name Role Phone SHERRIE VERA Attending Physician Unavailable SHERRIE VERA Er Physician 1 Unavailable DORIS Feliciano Registered Nurse Unavailable ARA Chahal Registered Nurse Unavailable Vital Signs Unknown or Not Available. Allergies Allergy Code Allergy Type Reaction Status CYCLOBENZAPRINE 08455 Drug allergy Active KETOROLAC 76773 Drug allergy ITCHING Active TRAMADOL 28728 Drug allergy Active IMITREX NS SPR 20 MG 0 Drug allergy Active GABAPENTIN 26755 Drug allergy Active Procedures Procedure Code Procedure Type Date Application of splint 9354 ICD-9 CM, Volume 3 06/01/2015 HAND [id number] 06/01/2015 History of Immunizations Unknown or Not Available. 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 55432 11/02/2011 Active ARTERY BP (HIGH BLOOD PRESSURE) 42666665 11/02/2011 Active CLOSED DISPLACED FRACTURE OF FIFTH 42434945 Active METATARSAL BONE GASTRO - ESOPHAGEAL REFLUX DISEASE 200797625 Active H/O ACUTE MYOCARDIAL INFARCTION 412 Active ACTIVE SMOKER 97206822 Active [facility] CURRENT USE OF INSULIN 496667801 Active MIGRAINE 03987156 12/25/2011 Active CEPHALGIA 80436274 01/09/2012 Active CHEST PAIN 65738011 06/19/2012 Active CONTUSION OF BACK 13227165 07/16/2012 Active CONTUSION OF HIP 67259338 07/16/2012 Active CONTUSION OF FOOT 17266380 08/08/2012 Active CONTUSION OF ANKLE 39617017 08/08/2012 Active NAUSEA WITH VOMITING 21828261 10/11/2012 Active CONTUSION OF CHEST WALL 67461795 12/24/2012 Active CALCULUS OF URETER 14536441 02/10/2013 Active OTHER SPECIFIED DISORDER OF NERVOUS SYSTEM 292458152 04/01/2013 Active CALCULUS OF KIDNEY 88704784 05/29/2013 Active Mononeuritis of upper limb, unspecified 94924237 07/26/2013 Active Pain in joint involving upper arm 94832098 09/21/2013 Active Anxiety state, unspecified 651095935 10/30/2013 Active Sprain of other specified sites of elbow 650440001 11/20/2013 Active and forearm Head injury, unspecified 63612539 12/12/2013 Active Personal history of surgery to heart and 443133137 Active great vessels, presenting hazards to health Headache 00131668 12/13/2013 Active Unspecified essential hypertension 36707417 Active Malignant neoplasm of cervix uteri, 567475439 Active unspecified Results Unknown or Not Available. Active Medications Medication Code Dose Units Frequency Route Modification Start Date/Time Metformin 1000MG 546682 1758 MILLIGRAMS TWICE A DAY ORAL 07/29/2014 Oral Tablet 06:20 Medications Administered During Visit Unknown or Not Available. Encounters Encounter Diagnosis Diagnosis Code Start Date SPRAIN OF HAND NOS 05574 06/01/2015 Social History Smoking Status Code Start Date End Date Current every day smoker 667384468 11/27/1979 Patient Decision Aids Unknown or Not Available. Discharge Instructions You were admitted to [facility] on 06/01/2015 with a principal diagnosis of SPRAIN OF HAND NOS. You had the following procedures done:APPLICATION OF SPLINT You were discharged from [facility] on 06/01/2015. Should you have any questions prior to discharge, please contact a member of your healthcare team. If you have left the hospital and have any questions, please contact your primary care physician. Chief Complaint and Reason For Visit Chief Complaint Date of Onset POSSIBLE BROKEN THUMB Function Status Unknown or Not Available. Plan of Care Unknown or Not Available. Referral/Transition of Care Unknown or Not Available.
--- OUTSIDE RECORDS SUMMARY | 2017-03-13 14:12 | XMS REPORT | CCD ---
:1965 Author Name MIRANDAKIMBERLI ZAVALA Dustin Address [address] [facility] Unavailable [place], [place] [address] Care Team Providers Name Role Phone SATURNINO ARROYO DO Attending Physician Unavailable SATURNINO ARROYO DO Er Physician 1 Unavailable DORIS Feliciano Registered Nurse Unavailable Vital Signs Vital Sign Value Unit Height 67 in Weight Measured 180 lbs BMI (Body Mass Index) 28.19 kg/m^2 BSA (Body Surface Area) 1.96 m^2 Allergies Allergy Code Allergy Type Reaction Status TRAMADOL 0 Drug allergy (disorder) Active KETOROLAC 0 Drug allergy (disorder) ITCHING Active GABAPENTIN 0 Drug allergy (disorder) Active IMITREX NS SPR 20 MG 0 Drug allergy (disorder) Active Procedures Procedure Code Procedure Type Date CT HEAD W/O 33792886 SNOMED CT 12/13/2013 History of Immunizations Unknown. Problems Problem Code Start Date Resolved Date Status MIGRAINE 35116049 12/25/2011 Active Headache 85556598 12/13/2013 Active Personal history of surgery to heart and 903707267 Active great vessels, presenting hazards to health Head injury, unspecified 04826585 12/12/2013 Active Sprain of other specified sites of elbow 323116335 11/20/2013 Active and forearm Anxiety state, unspecified 699866317 10/30/2013 Active Pain in joint involving upper arm 82380423 09/21/2013 Active Mononeuritis of upper limb, unspecified 17410010 07/26/2013 Active DIZZINESS 854635967 11/02/2011 Active DIABETES MELLITUS 46927946 11/02/2011 Active OTHER SPECIFIED DISORDER OF NERVOUS SYSTEM 161743279 04/01/2013 Active 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 84533 11/02/2011 Active ARTERY CALCULUS OF KIDNEY 31908372 05/29/2013 Active BP (HIGH BLOOD PRESSURE) 76568735 11/02/2011 Active CLOSED DISPLACED FRACTURE OF FIFTH 90500376 Active METATARSAL BONE GASTRO - ESOPHAGEAL REFLUX DISEASE 875614104 Active H/O ACUTE MYOCARDIAL INFARCTION 412 Active ACTIVE SMOKER 44497925 Active 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 Medications Medication Code Dose Units Frequency Route Modification Start Stop Date/Time Date/Time Pravastatin 834285 40 MILLIGRAMS Before bed ORAL 08/24/2013 40MG Oral 10:59 Tablet Clopidogrel 502876 75 MILLIGRAMS ORAL 08/24/2013 75MG Oral 10:59 Tablet Aspirin 325MG 871694 325 MILLIGRAMS ORAL 08/24/2013 Oral Tablet 10:59 Lisinopril 207064 20 MILLIGRAMS DAILY ORAL 11/20/2013 20MG Oral 21:32 Tablet GlipiZIDE 221187 10 MILLIGRAMS DAILY ORAL 11/20/2013 10MG Oral 21:32 Tablet Hydrocodone 379741 1 TABLET Every BY For pain 11/29/2013 Bitart/Acet 4-6hr PRN MOUTH 01:37 325MG-5MG Oral Tablet Medications Administered Unknown. Encounters Encounter Diagnosis Diagnosis Code Start Date HEADACHE 7840 12/13/2013 Social History Smoking Status Code Start Date End Date Current every day smoker 451059419 Patient Decision Aids Patient Decision Aid [facility] Patient Educational Materials Instructions You were admitted to [facility] on 12/13/2013 with a principle diagnosis of HEADACHE. You were discharged from [facility] on 12/13/2013. Should you have any questions prior to discharge, please contact a member of your healthcare team. If you have left the hospital and have any questions, please contact your primary care physician. Chief Complaint and Reason For Visit Chief Complaint Date of Onset HEADACHE Function Status Unknown. Plan of Care Unknown. Referral/Transition of Care Unknown.
--- OUTSIDE RECORDS SUMMARY | 2017-03-13 14:12 | XMS REPORT | CCD ---
:1965 Author Name KIMBERLI ROY Address [address] [facility] Unavailable [place], [place] [id number] Care Team Providers Name Role Phone SANTINO DYER Attending Physician Unavailable SANTINO DYER Er Physician 1 Unavailable Vital Signs Vital Sign Value Unit Date/Time Recent/Initial? BP Systolic 165 mmHg 06/27/2015 00:34 Initial VS BP Diastolic 84 mmHg 06/27/2015 00:34 Initial VS Allergies Allergy Code Allergy Type Reaction Status CYCLOBENZAPRINE 47664 Drug allergy Active KETOROLAC 77990 Drug allergy ITCHING Active TRAMADOL 03205 Drug allergy Active IMITREX NS SPR 20 MG 0 Drug allergy Active GABAPENTIN 50711 Drug allergy Active Procedures Unknown or Not Available. History of Immunizations Unknown or Not Available. 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 181831878 Active MIGRAINE 29112881 12/25/2011 Active CEPHALGIA 82283843 01/09/2012 Active CHEST PAIN 96243339 06/19/2012 Active CONTUSION OF BACK 60926117 07/16/2012 Active CONTUSION OF HIP 96890496 07/16/2012 Active CONTUSION OF FOOT 49120533 08/08/2012 Active CONTUSION OF ANKLE 38673378 08/08/2012 Active NAUSEA WITH VOMITING 55703392 10/11/2012 Active CONTUSION OF CHEST WALL 31966839 12/24/2012 Active CALCULUS OF URETER 41615343 02/10/2013 Active OTHER SPECIFIED DISORDER OF NERVOUS SYSTEM 382716116 04/01/2013 Active CALCULUS OF KIDNEY 72237688 05/29/2013 Active Mononeuritis of upper limb, unspecified 56594227 07/26/2013 Active Pain in joint involving upper arm 15392571 09/21/2013 Active Anxiety state, unspecified 852138092 10/30/2013 Active Sprain of other specified sites of elbow 516069752 11/20/2013 Active and forearm Head injury, unspecified 08076924 12/12/2013 Active Personal history of surgery to heart and 141151638 Active great vessels, presenting hazards to health Headache 85828186 12/13/2013 Active Unspecified essential hypertension 93906143 Active Malignant neoplasm of cervix uteri, 347388544 Active unspecified Results Unknown or Not Available. Active Medications Medication Code Dose Units Frequency Route Modification Start Date/Time Metformin 1000MG 584787 9338 MILLIGRAMS TWICE A DAY ORAL 07/29/2014 Oral Tablet 06:20 Prescription Detail TAKE 1000 MILLIGRAMS ORAL TWICE A DAY Medications Administered During Visit Unknown or Not Available. Encounters Encounter Diagnosis Diagnosis Code Start Date INSOMNIA, UNSPECIFIED 96291 06/27/2015 Social History Smoking Status Code Start Date End Date Current every day smoker 673478863 11/27/1979 Patient Decision Aids Unknown or Not Available. Discharge Instructions You were admitted to [facility] on 06/27/2015 with a principal diagnosis of INSOMNIA, UNSPECIFIED. You were discharged from [facility] on 06/27/2015. Should you have any questions prior to discharge, please contact a member of your healthcare team. If you have left the hospital and have any questions, please contact your primary care physician. Chief Complaint and Reason For Visit Chief Complaint Date of Onset OD ON AMBIAN Function Status Unknown or Not Available. Plan of Care Unknown or Not Available. Referral/Transition of Care Unknown or Not Available.
--- OUTSIDE RECORDS SUMMARY | 2017-03-13 14:12 | XMS REPORT | CCD ---
:1965 Author Name GATITO CABELLO Address [address] [facility] [place] [address] Care Team Providers Name Role Phone MED CHAIREZ MD Attending Physician Unavailable MED CHAIREZ MD Er Physician 1 Unavailable Allergies Allergy Code Allergy Type Reaction Status BENADRYL 807999 Drug allergy ITCHING Active CYCLOBENZAPRINE 85394 Drug allergy Active KETOROLAC 41503 Drug allergy ITCHING Active TRAMADOL 27028 Drug allergy Active GABAPENTIN 59833 Drug allergy Active Active Medications Medication Code Dose Units Frequency Route Modification Start Date/Time ALPRAZolam 1MG 485040 1 MILLIGRAMS THREE TIMES A ORAL 02/28/2017 Oral Tablet DAY 07:38 Prescription Detail TAKE 1 MILLIGRAMS ORAL THREE TIMES A DAY Ambien 10MG Oral Tablet 344203 10 MILLIGRAMS AT BEDTIME ORAL 2016 07:38 Prescription Detail TAKE 10 MILLIGRAMS ORAL AT BEDTIME Lipitor 80MG Oral Tablet 715778 80 MILLIGRAMS AT BEDTIME ORAL 2016 07:38 Prescription Detail TAKE 80 MILLIGRAMS ORAL AT BEDTIME metFORMIN HCl 1000MG Oral 491642 7518 MILLIGRAMS TWICE A DAY ORAL 02/28 07:38 Tablet Prescription Detail TAKE 1000 MILLIGRAMS ORAL TWICE A DAY Plavix 75MG Oral Tablet 806781 75 MILLIGRAMS DAILY ORAL 02/28/2017 07: 38 Prescription Detail TAKE 75 MILLIGRAMS ORAL DAILY Mapap 325MG Oral 726480 650 MILLIGRAMS Every 4hr as BY MOUTH 2016 07:36 Tablet needed Prescription Detail TAKE 650 MILLIGRAMS BY MOUTH Every 4hr as needed Problems Problem Code Start Date Resolved Date Status DIZZINESS 000835915 11/02/2011 Active DIABETES MELLITUS 28266150 11/02/2011 Active 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 45707 11/02/2011 Active ARTERY BP (HIGH BLOOD PRESSURE) 70980434 11/02/2011 Active CLOSED DISPLACED FRACTURE OF FIFTH 48709935 Active METATARSAL BONE GASTRO - ESOPHAGEAL REFLUX DISEASE 666926889 Active H/O ACUTE MYOCARDIAL INFARCTION 412 Active ACTIVE SMOKER 59818630 Active [facility] CURRENT USE OF INSULIN 083731819 Active MIGRAINE 94196337 12/25/2011 Active CEPHALGIA 68861823 01/09/2012 Active CHEST PAIN 42949430 06/19/2012 Active CONTUSION OF BACK 02971261 07/16/2012 Active CONTUSION OF HIP 59759924 07/16/2012 Active CONTUSION OF FOOT 86636929 08/08/2012 Active CONTUSION OF ANKLE 64276610 08/08/2012 Active NAUSEA WITH VOMITING 66793125 10/11/2012 Active CONTUSION OF CHEST WALL 88051029 12/24/2012 Active CALCULUS OF URETER 21934558 02/10/2013 Active OTHER SPECIFIED DISORDER OF NERVOUS SYSTEM 401320826 04/01/2013 Active CALCULUS OF KIDNEY 03593119 05/29/2013 Active Mononeuritis of upper limb, unspecified 85603782 07/26/2013 Active Pain in joint involving upper arm 27130917 09/21/2013 Active Anxiety state, unspecified 255522821 10/30/2013 Active Sprain of other specified sites of elbow 389280453 11/20/2013 Active and forearm Head injury, unspecified 84098676 12/12/2013 Active Personal history of surgery to heart and 264326674 Active great vessels, presenting hazards to health Headache 37539652 12/13/2013 Active Unspecified essential hypertension 21524689 Active Malignant neoplasm of cervix uteri, 238239738 Active unspecified Procedures Procedure Code Procedure Type Date L-SPINE 2-[address] 05/26/2016 Results Unknown or Not Available. Function Status Unknown or Not Available. History of Immunizations Unknown or Not Available. Plan of Treatment Unknown or Not Available. Social History Smoking Status Code Start Date End Date Current every day smoker 378087039 11/27/1979 Vital Signs Unknown or Not Available. Function Status Unknown or Not Available. Goals Unknown or Not Available. ASSESSMENTS Unknown or Not Available. Health Concerns Section Unknown or Not Available.
--- OUTSIDE RECORDS SUMMARY | 2017-03-13 14:13 | XMS REPORT | CCD ---
:1965 Author Name GATITO CABELLO Address [address] Unavailable [place], [place] [id number] Care Team Providers Name Role Phone ELAINE ACOSTA Attending Physician Unavailable ELAINE ACOSTA Er Physician 1 Unavailable Vital Signs Unknown or Not Available. Allergies Allergy Code Allergy Type Reaction Status BENADRYL 209113 Drug allergy ITCHING Active CYCLOBENZAPRINE 85358 Drug allergy Active KETOROLAC 10557 Drug allergy ITCHING Active TRAMADOL 43060 Drug allergy Active IMITREX NS SPR 20 MG 0 Drug allergy Active GABAPENTIN 53751 Drug allergy Active Procedures Procedure Code Procedure Type Date CT HEAD W/O 78605778 SNOMED CT 02/20/2016 CULTURE URINE 497121495 SNOMED CT 02/20/2016 History of Immunizations Unknown or Not Available. 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 158548143 Active MIGRAINE 51988084 12/25/2011 Active CEPHALGIA 73030946 01/09/2012 Active CHEST PAIN 77678738 06/19/2012 Active CONTUSION OF BACK 90418094 07/16/2012 Active CONTUSION OF HIP 07711623 07/16/2012 Active CONTUSION OF FOOT 04581812 08/08/2012 Active CONTUSION OF ANKLE 25457229 08/08/2012 Active NAUSEA WITH VOMITING 10513807 10/11/2012 Active CONTUSION OF CHEST WALL 75626557 12/24/2012 Active CALCULUS OF URETER 69713525 02/10/2013 Active OTHER SPECIFIED DISORDER OF NERVOUS SYSTEM 389541185 04/01/2013 Active CALCULUS OF KIDNEY 99349979 05/29/2013 Active Mononeuritis of upper limb, unspecified 06673295 07/26/2013 Active Pain in joint involving upper arm 76067201 09/21/2013 Active Anxiety state, unspecified 298667020 10/30/2013 Active Sprain of other specified sites of elbow 238175888 11/20/2013 Active and forearm Head injury, unspecified 81333301 12/12/2013 Active Personal history of surgery to heart and 288461421 Active great vessels, presenting hazards to health Headache 07092579 12/13/2013 Active Unspecified essential hypertension 40212764 Active Malignant neoplasm of cervix uteri, 876036899 Active unspecified Results ALCOHOL - Collect Date/Time: 02/20/2016 18:27 Test Name Code Test Result Test Units Test Ref Range ALCOHOL <3.00 mg/dL COMPREHENSIVE METABOLIC PANEL - Collect Date/Time: 02/20/2016 18:27 Test Name Code Test Result Test Units Test Ref Range GLUCOSE 202 mg/dL L=74 H=106 SODIUM 140 mmol/L L=136 H=145 POTASSIUM 3.9 mmol/L L=3.5 H=5.1 CHLORIDE 103 mmol/L L=98 H=107 CO2 26 mmol/L L=21 H=32 BUN 13.0 mg/dL L=7.0 H=18.0 CREATININE 1.1 mg/dL L=0.6 H=1.0 BUN/CREAT 11.8 L=7.6 H=21.2 CALCIUM 10.3 mg/dL L=8.6 H=10.1 TOTAL BILI 0.2 mg/dL L=0.2 H=1.0 TOTAL PROTEIN 6.9 g/dL L=6.4 H=8.2 ALBUMIN 3.5 g/dL L=3.4 H=5.0 A/G RATIO 1.0 ALKALINE PHOS 133 IU/L L=50 H=136 AST/SGOT 5 IU/L L=15 H=37 ALT/SGPT 12 IU/L L=12 H=78 ANION GAP 14.5 mmol/L L=7.0 H=16.0 AGE 50 YEARS GFR 55.66 ml/min RAPID URINE DRUG SCREEN - Collect Date/Time: 02/20/2016 19:57 Test Name Code Test Result Test Units Test Ref Range CANNABINOIDS (THC) NEGATIVE N/A NORMAL:Negative OPIATES NEGATIVE N/A NORMAL:Negative AMPHETAMINES NEGATIVE N/A NORMAL:Negative COCAINE NEGATIVE N/A NORMAL:Negative TRICYCLIC ANTIDEPRES NEGATIVE N/A NORMAL:Negative BARBITURATES NEGATIVE N/A NORMAL:Negative METHADONE NEGATIVE N/A NORMAL:Negative BENZODIAZEPINES POSITIVE N/A NORMAL:Negative PROPOXYPHENE NEGATIVE N/A NORMAL:Negative METHAMPHETAMINE NEGATIVE N/A NORMAL:Negative CBC W/DIFF - Collect Date/Time: 02/20/2016 18:27 Test Name Code Test Result Test Units Test Ref Range WBC 6690-2 7.4 K/uL L=3.2 H=10.0 RBC 789-8 3.78 M/uL L=4.00 H=5.20 HEMOGLOBIN 718-7 13.3 g/dL L=12.1 H=15.6 HEMATOCRIT 39.6 % L=35.0 H=47.0 MCV 104.8 fL L=81.0 H=101 MCH 35.2 PG L=26.0 H=38.0 MCHC 33.6 G/DL L=31.0 H=37.0 RDW-SD 50.6 FL L=37.0 H=54.0 RDW-CV 13.8 % L=11.0 H=16.0 PLATELETS 207 K/UL L=140 H=380 MPV 9.7 FL L=9.0 H=13.0 %GRAN 49.8 % L=0.0 H=75.0 %LYMPH 43.0 % L=0.0 H=50.0 %MONO 4.5 % L=0.0 H=14.0 %EOS 2.3 % L=0.0 H=6.0 %BASO 0.4 % L=0.0 H=1.0 #GRAN 3.69 K/UL L=1.80 H=7.80 #LYMPH 3.19 K/UL L=0.30 H=4.00 #MONO 0.33 K/UL L=0.00 H=0.70 #EOS 0.17 K/UL L=0.00 H=0.40 #BASO 0.03 K/UL L=0.00 H=0.10 SLIDE REVIEWED? NOT INDICATED N/A MANUAL DIFF NOT INDICATED N/A URINALYSIS - Collect Date/Time: 02/20/2016 19:57 Test Name Code Test Result Test Units Test Ref Range COLOR UR Yellow N/A NORMAL:YELLOW CLARITY UR SlCloudy N/A NORMAL:CLEAR SP GRAV UR 1.025 N/A NORMAL:1.000-1.030 PH UR 5.0 N/A NORMAL:5.0-8.5 PROTEIN UR 2+ N/A NORMAL:NEGATIVE GLUCOSE UR Trace N/A NORMAL:NEGATIVE KETONE UR Negative N/A NORMAL:NEGATIVE BILIRUBIN UR Negative N/A NORMAL:NEGATIVE BLOOD UR TRACE N/A NORMAL:NEGATIVE LEUK UR Negative N/A NORMAL:NEGATIVE NITRITE UR Negative N/A NORMAL:NEGATIVE MICROSCOPIC NOT INDICAT N/A CULTURE? YES N/A AMMONIA, PLASMA - Collect Date/Time: 02/20/2016 18:27 Test Name Code Test Result Test Units Test Ref Range AMMONIA, (NH4) PLASMA 12 umol/L 11-32 B12 LEVEL, SERUM - Collect Date/Time: 02/20/2016 18:27 Test Name Code Test Result Test Units Test Ref Range VITAMIN B12 293 pg/mL 211-911 PTH INTACT, BLOOD - Collect Date/Time: 02/20/2016 18:27 Test Name Code Test Result Test Units Test Ref Range PARATHYROID HORMONE,INTACT 21 pg/mL 12-77 Active Medications Medication Code Dose Units Frequency Route Modification Start Date/Time Metformin 1000MG 490255 5024 MILLIGRAMS TWICE A DAY ORAL 07/29/2014 Oral Tablet 06:20 Prescription Detail TAKE 1000 MILLIGRAMS ORAL TWICE A DAY Medications Administered During Visit Unknown or Not Available. Encounters Encounter Diagnosis Diagnosis Code Start Date Weakness R531 02/20/2016 Social History Smoking Status Code Start Date End Date Current every day smoker 123840592 11/27/1979 Patient Decision Aids Unknown or Not Available. Discharge Instructions You were admitted to [facility] on 02/20/2016 17:28 with a principal diagnosis of Weakness You had the following tests done:ALCOHOLAMMONIA, NUEVSBZ21 LEVEL, SERUMCBC W/DIFFCOMPREHENSIVE METABOLIC PANELPTH INTACT, BLOODRAPID URINE DRUG SCREENURINALYSIS You were discharged from [facility] on 02/20/2016 20:42 Should you have any questions prior to discharge, please contact a member of your healthcare team. If you have left the hospital and have any questions, please contact your primary care physician. Chief Complaint and Reason For Visit Chief Complaint Date of Onset PASSED OUT WEAKNESS Function Status Unknown or Not Available. Plan of Care Unknown or Not Available. Referral/Transition of Care Unknown or Not Available.
--- OUTSIDE RECORDS SUMMARY | 2017-03-13 14:13 | XMS REPORT | CCD ---
:1965 Author Name KIMBERLI ROY Address [address] [place], [place] [id number] Care Team Providers Name Role Phone JAH CORONEL MD Attending Physician Unavailable JAH CORONEL MD Er Physician 1 Unavailable JAH CORONEL MD Er Physician 2 Unavailable SANDRINE Traylor Registered Nurse Unavailable Vital [...] Active Procedures Procedure Code Procedure Type Date INJECT INFUSE NEC 9929 ICD-9 CM, Volume 3 10/30/2013 INJECT INFUSE NEC 9929 ICD-9 CM, Volume 3 10/30/[address] 10/30/2013 CULTURE URINE 536732446 SNOMED CT 10/30/2013 History of Immunizations Unknown. 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 01632 11/02/2011 Active ARTERY BP (HIGH BLOOD PRESSURE) 48799719 11/02/2011 Active CLOSED DISPLACED FRACTURE OF FIFTH 85564502 Active METATARSAL BONE MIGRAINE 73794907 12/25/2011 Active GASTRO - ESOPHAGEAL REFLUX DISEASE 121376803 Active H/O ACUTE MYOCARDIAL INFARCTION 412 Active ACTIVE SMOKER 11650750 Active 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 737810647 Active CALCULUS OF URETER 27126393 02/10/2013 Active CONTUSION OF ANKLE 44876387 08/08/2012 Active CONTUSION OF FOOT 88706571 08/08/2012 Active CONTUSION OF CHEST WALL 23964328 12/24/2012 Active NAUSEA WITH VOMITING 05168032 10/11/2012 Active CHEST PAIN 23009295 06/19/2012 Active Anxiety state, unspecified 124122196 10/30/2013 Active CEPHALGIA 05244408 01/09/2012 Active Pain in joint involving upper arm 75069917 09/21/2013 Active CONTUSION OF HIP 25210430 07/16/2012 Active Mononeuritis of upper limb, unspecified 96608735 07/26/2013 Active CONTUSION OF BACK 41198039 07/16/2012 Active Results ALCOHOL Test Name Code Test Result Test Units Test Date/Time ALCOHOL 183.0000 mg/dL 10/30/2013 17:02 UA W/MICROSCOPIC EXAM Test Name Code Test Result Test Units Test Date/Time COLOR UR LT YELLOW N/A 10/30/2013 18:39 CLARITY UR CLEAR N/A 10/30/2013 18:39 SP GRAV UR 1.012 N/A 10/30/2013 18:39 PH UR 5.5 N/A 10/30/2013 18:39 PROTEIN UR 1+ N/A 10/30/2013 18:39 GLUCOSE UR 3+ N/A 10/30/2013 18:39 KETONE UR NEGATIVE N/A 10/30/2013 18:39 BILIRUBIN UR NEGATIVE N/A 10/30/2013 18:39 BLOOD UR 2+ N/A 10/30/2013 18:39 LEUK UR NEGATIVE N/A 10/30/2013 18:39 NITRITE UR NEGATIVE N/A 10/30/2013 18:39 MICRO SEE BELOW N/A 10/30/2013 18:39 RBC/hpf 8 N/A 10/30/2013 18:39 WBC/hpf 0 N/A 10/30/2013 18:39 EPI UR 10-20 N/A 10/30/2013 18:39 BACTERIA UR MANY N/A 10/30/2013 18:39 CULTURE? YES N/A 10/30/2013 18:39 RAPID URINE DRUG SCREEN Test Name Code Test Result Test Units Test Date/Time CANNABINOIDS (THC) NEGATIVE N/A 10/30/2013 23:03 OPIATES NEGATIVE N/A 10/30/2013 23:03 AMPHETAMINES NEGATIVE N/A 10/30/2013 23:03 COCAINE NEGATIVE N/A 10/30/2013 23:03 TRICYCLIC ANTIDEPRES NEGATIVE N/A 10/30/2013 23:03 BARBITURATES NEGATIVE N/A 10/30/2013 23:03 METHADONE NEGATIVE N/A 10/30/2013 23:03 BENZODIAZEPINES POSITIVE N/A 10/30/2013 23:03 PROPOXYPHENE NEGATIVE N/A 10/30/2013 23:03 METHAMPHETAMINE NEGATIVE N/A 10/30/2013 23:03 RAPID URINE DRUG SCREEN Test Name Code Test Result Test Units Test Date/Time CANNABINOIDS (THC) NEGATIVE N/A 10/30/2013 18:39 OPIATES NEGATIVE N/A 10/30/2013 18:39 AMPHETAMINES NEGATIVE N/A 10/30/2013 18:39 COCAINE NEGATIVE N/A 10/30/2013 18:39 TRICYCLIC ANTIDEPRES NEGATIVE N/A 10/30/2013 18:39 BARBITURATES NEGATIVE N/A 10/30/2013 18:39 METHADONE NEGATIVE N/A 10/30/2013 18:39 BENZODIAZEPINES NEGATIVE N/A 10/30/2013 18:39 PROPOXYPHENE NEGATIVE N/A 10/30/2013 18:39 METHAMPHETAMINE NEGATIVE N/A 10/30/2013 18:39 COMPREHENSIVE METABOLIC PANEL Test Name Code Test Result Test Units Test Date/Time GLUCOSE 374.0000 mg/dL 10/30/2013 17:02 SODIUM 135.0000 mmol/L 10/30/2013 17:02 POTASSIUM 4.2000 mmol/L 10/30/2013 17:02 CHLORIDE 98.0000 mmol/L 10/30/2013 17:02 CO2 21.0000 mmol/L 10/30/2013 17:02 BUN 12.0000 mg/dL 10/30/2013 17:02 CREATININE 1.2000 mg/dL 10/30/2013 17:02 BUN/CREAT 10.0000 10/30/2013 17:02 CALCIUM 9.4000 mg/dL 10/30/2013 17:02 TOTAL BILI 0.3000 mg/dL 10/30/2013 17:02 TOTAL PROTEIN 8.1000 g/dL 10/30/2013 17:02 ALBUMIN 3.9000 g/dL 10/30/2013 17:02 A/G RATIO 0.9000 10/30/2013 17:02 ALKALINE PHOS 153.0000 IU/L 10/30/2013 17:02 AST/SGOT 1.0000 IU/L 10/30/2013 17:02 ALT/SGPT 32.0000 IU/L 10/30/2013 17:02 ANION GAP 20.0000 mmol/L 10/30/2013 17:02 AGE 48.0000 YE[age] 10/30/2013 17:02 GFR 50.7500 ml/min 10/30/2013 17:02 CBC Test Name Code Test Result Test Units Test Date/Time WBC 6690-2 15.3000 K/uL 10/30/2013 23:03 RBC 789-8 4.0900 M/uL 10/30/2013 23:03 HEMOGLOBIN 718-7 13.5000 g/dL 10/30/2013 23:03 HEMATOCRIT 38.9000 % 10/30/2013 23:03 MCV 95.1000 fL 10/30/2013 23:03 MCH 33.0000 PG 10/30/2013 23:03 MCHC 34.7000 G/DL 10/30/2013 23:03 RDW-SD 43.7000 FL 10/30/2013 23:03 RDW-CV 12.9000 % 10/30/2013 23:03 PLATELETS 203.0000 K/UL 10/30/2013 23:03 MPV 9.5000 FL 10/30/2013 23:03 %GRAN 86.7000 % 10/30/2013 23:03 %LYMPH 10.7000 % 10/30/2013 23:03 %MONO 2.4000 % 10/30/2013 23:03 %EOS 0.0000 % 10/30/2013 23:03 %BASO 0.2000 % 10/30/2013 23:03 #GRAN 13.2500 K/UL 10/30/2013 23:03 #LYMPH 1.6400 K/UL 10/30/2013 23:03 #MONO 0.3700 K/UL 10/30/2013 23:03 #EOS 0.0000 K/UL 10/30/2013 23:03 #BASO 0.0300 K/UL 10/30/2013 23:03 SLIDE REVIEWED? NOT INDICATED N/A 10/30/2013 23:03 MANUAL DIFF NOT INDICATED N/A 10/30/2013 23:03 ALCOHOL Test Name Code Test Result Test Units Test Date/Time ALCOHOL 31.0000 mg/dL 10/30/2013 23:03 CBC Test Name Code Test Result Test Units Test Date/Time WBC 6690-2 11.7000 K/uL 10/30/2013 17:02 RBC 789-8 4.2500 M/uL 10/30/2013 17:02 HEMOGLOBIN 718-7 14.1000 g/dL 10/30/2013 17:02 HEMATOCRIT 40.4000 % 10/30/2013 17:02 MCV 95.1000 fL 10/30/2013 17:02 MCH 33.2000 PG 10/30/2013 17:02 MCHC 34.9000 G/DL 10/30/2013 17:02 RDW-SD 44.4000 FL 10/30/2013 17:02 RDW-CV 13.0000 % 10/30/2013 17:02 PLATELETS 197.0000 K/UL 10/30/2013 17:02 MPV 9.5000 FL 10/30/2013 17:02 %GRAN 72.6000 % 10/30/2013 17:02 %LYMPH 22.7000 % 10/30/2013 17:02 %MONO 4.3000 % 10/30/2013 17:02 %EOS 0.1000 % 10/30/2013 17:02 %BASO 0.3000 % 10/30/2013 17:02 #GRAN 8.5200 K/UL 10/30/2013 17:02 #LYMPH 2.6700 K/UL 10/30/2013 17:02 #MONO 0.5100 K/UL 10/30/2013 17:02 #EOS 0.0100 K/UL 10/30/2013 17:02 #BASO 0.0300 K/UL 10/30/2013 17:02 SLIDE REVIEWED? NOT INDICATED N/A 10/30/2013 17:02 MANUAL DIFF NOT INDICATED N/A 10/30/2013 17:02 LIPASE Test Name Code Test Result Test Units Test Date/Time LIPASE 84.0000 U/L 10/30/2013 23:03 CULTURE URINE Test Name Code Test Result Test Units Test Date/Time SOURCE VOIDED N/A 10/30/2013 18:39 NOTIFY IF NO N/A 10/30/2013 18:39 COMPREHENSIVE METABOLIC PANEL Test Name Code Test Result Test Units Test Date/Time GLUCOSE 365.0000 mg/dL 10/30/2013 23:03 SODIUM 135.0000 mmol/L 10/30/2013 23:03 POTASSIUM 4.1000 mmol/L 10/30/2013 23:03 CHLORIDE 98.0000 mmol/L 10/30/2013 23:03 CO2 24.0000 mmol/L 10/30/2013 23:03 BUN 12.0000 mg/dL 10/30/2013 23:03 CREATININE 1.2000 mg/dL 10/30/2013 23:03 BUN/CREAT 10.0000 10/30/2013 23:03 CALCIUM 9.3000 mg/dL 10/30/2013 23:03 TOTAL BILI 0.3000 mg/dL 10/30/2013 23:03 TOTAL PROTEIN 8.0000 g/dL 10/30/2013 23:03 ALBUMIN 3.9000 g/dL 10/30/2013 23:03 A/G RATIO 1.0000 10/30/2013 23:03 ALKALINE PHOS 150.0000 IU/L 10/30/2013 23:03 AST/SGOT 10.0000 IU/L 10/30/2013 23:03 ALT/SGPT 18.0000 IU/L 10/30/2013 23:03 ANION GAP 17.6000 mmol/L 10/30/2013 23:03 AGE 48.0000 YEARS 10/30/2013 23:03 GFR 50.7500 ml/min 10/30/2013 23:03 UA W/MICROSCOPIC EXAM Test Name Code Test Result Test Units Test Date/Time COLOR UR LT YELLOW N/A 10/30/2013 23:03 CLARITY UR CLOUDY N/A 10/30/2013 23:03 SP GRAV UR 1.020 N/A 10/30/2013 23:03 PH UR 5.0 N/A 10/30/2013 23:03 PROTEIN UR 2+ N/A 10/30/2013 23:03 GLUCOSE UR 3+ N/A 10/30/2013 23:03 KETONE UR TRACE N/A 10/30/2013 23:03 BILIRUBIN UR NEGATIVE N/A 10/30/2013 23:03 BLOOD UR 3+ N/A 10/30/2013 23:03 LEUK UR NEGATIVE N/A 10/30/2013 23:03 NITRITE UR NEGATIVE N/A 10/30/2013 23:03 MICRO SEE BELOW N/A 10/30/2013 23:03 RBC/hpf 40 N/A 10/30/2013 23:03 WBC/hpf 0 N/A 10/30/2013 23:03 EPI UR 10-20 N/A 10/30/2013 23:03 BACTERIA UR MODERATE N/A 10/30/2013 23:03 CULTURE? ORDERED N/A 10/30/2013 23:03 Medications Medication Code Dose Units Frequency Route Modification Start Stop Date/Time Date/Time Xanax 0.25MG 091617 0.25 MILLIGRAMS ORAL 08/24/2013 11/20/2013 Oral Tablet 10:59 21:10 Pravastatin 441071 40 MILLIGRAMS Before bed ORAL 08/24/2013 40MG Oral 10:59 Tablet Metoprolol 480147 25 MILLIGRAMS ORAL 08/24/2013 11/20/2013 25MG Oral 10:59 21:10 Tablet Clopidogrel 946362 75 MILLIGRAMS ORAL 08/24/2013 75MG Oral 10:59 Tablet GlipiZIDE 5MG 689374 5 MILLIGRAMS ORAL 08/24/2013 11/20/2013 Oral Tablet 10:59 21:11 Aspirin 325MG 238046 325 MILLIGRAMS ORAL 08/24/2013 Oral Tablet 10:59 Medications Administered Unknown. Encounters Encounter Diagnosis Diagnosis Code Start Date DEPRESSIVE DISORDER NEC 311 10/30/2013 Social History Smoking Status Code Start Date End Date Current every day smoker [id number] Patient Decision Aids Patient Decision Aid [facility] Patient Educational Materials [facility] Patient Educational Materials Instructions You were admitted to [facility] on 10/30/2013 with a principle diagnosis of DEPRESSIVE DISORDER NEC. You had the following procedures done:INJECT INFUSE NECINJECT INFUSE NEC You had the following tests done:EHSEBRDXAYAFAFPGLLDOQJTLIPWSKCBEMHGBUAX-WLTOO-LYYDGMXGZLTMMN%GRAN%LYMPH% MONO%EOS%BASO#GRAN#LYMPH#MONO#EOS#BASOSLI DE REVIEWED?MANUAL EDTQMUIJCOCICIOIOLQZTBFDSNZGMSABJENJ0SOCJOVURCKNFYXMC/ CREATCALCIUMTOTAL BILITOTAL PROTEINALBUMINA/G RATIOALKALINE PHOSAST/SGOTALT/SGPTANION GAPAGEGFRALCOHOLCANNABINOIDS (THC) OPIATESAMPHETAMINESCOCAINETRICYCLIC ANTIDEPRESBARBITURATESMETHADONEBENZODIAZEPINESPROPOXYPHENEMETHAMPHETAMINECOLOR URCLARITY URSP GRAV URPH URPROTEIN URGLUCOSE URKETONE URBILIRUBIN URBLOOD URLEUK URNITRITE URMICRORBC/hpfWBC/ hpfEPI URBACTERIA URCULTURE?SOURCENOTIFY LIVIQDOSPZTIVVGKCUNOMMTWVDLTAPJDNEYZPRRXG-CCGVT-CUXLEOLRJFUDEQ%GRAN%LYMPH%MONO% EOS%BASO#GRAN#LYMPH#MONO#EOS#BASOSLIDE REVIEWED?MANUAL LDVTRGYASTQPGTDMZBBASPNXRJFRJWXCROEL1ZUDZISATZVQGRKOS/ CREATCALCIUMTOTAL BILITOTAL PROTEINALBUMINA/G RATIOALKALINE PHOSAST/SGOTALT/SGPTANION GAPAGEGFRLIPASECOLOR URCLARITY URSP GRAV URPH URPROTEIN URGLUCOSE URKETONE URBILIRUBIN URBLOOD URLEUK URNITRITE URMICRORBC/hpfWBC/hpfEPI URBACTERIA URCULTURE?CANNABINOIDS (THC)OPIATESAMPHETAMINESCOCAINETRICYCLIC ANTIDEPRESBARBITURATESMETHADONEBENZODIAZEPINESPROPOXYPHENEMETHAMPHETAMINEALCOHOL You were discharged from [facility] on 10/31/2013. Should you have any questions prior to discharge, please contact a member of your healthcare team. If you have left the hospital and have any questions, please contact your primary care physician. Chief Complaint and Reason For Visit Unknown. Function Status Unknown. Plan of Care Unknown. Referral/Transition of Care Unknown.
--- OUTSIDE RECORDS SUMMARY | 2017-03-13 14:13 | XMS REPORT | CCD ---
:1965 Author Name MANUELAKIMBERLI Dustin Address [address] [facility] Unavailable [place], [place] [id number] Care Team Providers Name Role Phone VIVIAN MARSH Attending Physician Unavailable VIVIAN MARSH Er Physician 1 Unavailable DORIS Feliciano Registered Nurse Unavailable Vital Signs Vital Sign Value Unit Date/Time Recent/Initial? Weight Measured 172 lbs 04/11/2014 11:46 Initial VS Height 67 in 04/11/2014 11:46 Initial VS BMI (Body Mass Index) 26.94 kg/m^2 04/11/2014 11:46 Initial VS BSA (Body Surface Area) 1.92 m^2 04/11/2014 11:46 Initial VS Allergies Allergy Code Allergy Type Reaction Status KETOROLAC 0 Drug allergy (disorder) ITCHING Active TRAMADOL 0 Drug allergy (disorder) Active IMITREX NS SPR 20 MG 0 Drug allergy (disorder) Active GABAPENTIN 0 Drug allergy (disorder) Active Procedures Unknown. History of Immunizations Unknown. 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 32281 11/02/2011 Active ARTERY BP (HIGH BLOOD PRESSURE) 58459376 11/02/2011 Active CLOSED DISPLACED FRACTURE OF FIFTH 41906280 Active METATARSAL BONE GASTRO - ESOPHAGEAL REFLUX DISEASE 175883974 Active H/O ACUTE MYOCARDIAL INFARCTION 412 Active ACTIVE SMOKER 98494807 Active USP CURRENT USE OF INSULIN 460435068 Active MIGRAINE 48810658 12/25/2011 Active CEPHALGIA 97484606 01/09/2012 Active CHEST PAIN 39215618 06/19/2012 Active CONTUSION OF BACK 13600010 07/16/2012 Active CONTUSION OF HIP 04109756 07/16/2012 Active CONTUSION OF FOOT 15243425 08/08/2012 Active CONTUSION OF ANKLE 74375994 08/08/2012 Active NAUSEA WITH VOMITING 24709750 10/11/2012 Active CONTUSION OF CHEST WALL 84373791 12/24/2012 Active CALCULUS OF URETER 78139052 02/10/2013 Active OTHER SPECIFIED DISORDER OF NERVOUS SYSTEM 558395505 04/01/2013 Active CALCULUS OF KIDNEY 60675560 05/29/2013 Active Mononeuritis of upper limb, unspecified 22199061 07/26/2013 Active Pain in joint involving upper arm 33998257 09/21/2013 Active Anxiety state, unspecified 536935175 10/30/2013 Active Sprain of other specified sites of elbow 189841069 11/20/2013 Active and forearm Head injury, unspecified 13440063 12/12/2013 Active Personal history of surgery to heart and 622826344 Active great vessels, presenting hazards to health Headache 31662632 12/13/2013 Active Unspecified essential hypertension 87621073 Active Malignant neoplasm of cervix uteri, 513167542 Active unspecified Results Unknown. Medications Medication Code Dose Units Frequency Route Modification Start Stop Date/Time Date/Time Pravastatin 828021 40 MILLIGRAM Before bed ORAL 08/24/2013 04/17/2014 40MG Oral S 10:59 12:31 Tablet Clopidogrel 762858 75 MILLIGRAM ORAL 08/24/2013 75MG Oral S 10:59 Tablet Aspirin 509749 325 MILLIGRAM ORAL 08/24/2013 04/17/2014 325MG Oral S 10:59 12:28 Tablet Lisinopril 029317 20 MILLIGRAM DAILY ORAL 11/20/2013 04/17/2014 20MG Oral S 21:32 12:29 Tablet Metformin 914446 500 MILLIGRAM TWICE A ORAL 01/24/2014 04/17/2014 500MG Oral S DAY 18:54 12:30 Tablet GlipiZIDE 217667 5 MILLIGRAM Every 8 hr ORAL 01/24/2014 04/17/2014 5MG Oral S as needed 18:54 12:30 Tablet Ambien 10MG 690653 10 MILLIGRAM AT BEDTIME ORAL 04/11/2014 Oral Tablet S 15:00 Proventil 453004 1-2 PUFF Every 4hr INHALATIO 04/11/2014 0.09MG/Actua as needed N 15:00 tion Inhalation Aerosol Powder Tylenol 267686 1 EACH ORAL w/Codeine #3 300MG-30MG Oral Tablet Z-PACK 0 DAILY ORAL Medications Administered Unknown. Encounters Encounter Diagnosis Diagnosis Code Start Date ROTATOR CUFF SYND NOS 03073 04/11/2014 Social History Smoking Status Code Start Date End Date Current every day smoker 874049246 Patient Decision Aids Patient Decision Aid [facility] Patient Educational Materials Discharge Instructions You were admitted to [facility] on 04/11/2014 with a principle diagnosis of ROTATOR CUFF SYND NOS. You were discharged from [facility] on 04/11/2014. Should you have any questions prior to discharge, please contact a member of your healthcare team. If you have left the hospital and have any questions, please contact your primary care physician. Chief Complaint and Reason For Visit Chief Complaint Date of Onset RIGHT SHOULDER PAIN Function Status Unknown. Plan of Care Unknown. Referral/Transition of Care Unknown.
--- OUTSIDE RECORDS SUMMARY | 2017-03-13 14:13 | XMS REPORT | CCD ---
:1965 Author Name MANUELA KIMBERLI Chan Address [address] [facility] Unavailable [place], [place] [phone] Care Team Providers Name Role Phone MOISES LEON Attending Physician Unavailable DORIS Feliciano Registered Nurse Unavailable Vital Signs Vital Sign Value Unit Date/Time Recent/Initial? Weight Measured 150 lbs 05/28/2015 13:52 Initial VS Height 67 in 05/28/2015 13:52 Initial VS BMI (Body Mass Index) 23.49 kg/m^2 05/28/2015 13:52 Initial VS BSA (Body Surface Area) 1.79 m^2 05/28/2015 13:52 Initial VS Allergies Allergy Code Allergy Type Reaction Status CYCLOBENZAPRINE 06473 Drug allergy Active KETOROLAC 52555 Drug allergy ITCHING Active TRAMADOL 29519 Drug allergy Active IMITREX NS SPR 20 MG 0 Drug allergy Active GABAPENTIN 02793 Drug allergy Active Procedures Unknown or Not Available. History of Immunizations Unknown or Not Available. 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 33379 11/02/2011 Active ARTERY BP (HIGH BLOOD PRESSURE) 74611921 11/02/2011 Active CLOSED DISPLACED FRACTURE OF FIFTH 79111944 Active METATARSAL BONE GASTRO - ESOPHAGEAL REFLUX DISEASE 942892093 Active H/O ACUTE MYOCARDIAL INFARCTION 412 Active ACTIVE SMOKER 34154314 Active [place] CURRENT USE OF INSULIN 103267991 Active MIGRAINE 92882176 12/25/2011 Active CEPHALGIA 02741081 01/09/2012 Active CHEST PAIN 28758011 06/19/2012 Active CONTUSION OF BACK 53968929 07/16/2012 Active CONTUSION OF HIP 11940955 07/16/2012 Active CONTUSION OF FOOT 23372286 08/08/2012 Active CONTUSION OF ANKLE 56096394 08/08/2012 Active NAUSEA WITH VOMITING 37584895 10/11/2012 Active CONTUSION OF CHEST WALL 16333297 12/24/2012 Active CALCULUS OF URETER 32124555 02/10/2013 Active OTHER SPECIFIED DISORDER OF NERVOUS SYSTEM 060846263 04/01/2013 Active CALCULUS OF KIDNEY 61855052 05/29/2013 Active Mononeuritis of upper limb, unspecified 78062440 07/26/2013 Active Pain in joint involving upper arm 86382047 09/21/2013 Active Anxiety state, unspecified 673168050 10/30/2013 Active Sprain of other specified sites of elbow 824571276 11/20/2013 Active and forearm Head injury, unspecified 06414731 12/12/2013 Active Personal history of surgery to heart and 319280658 Active great vessels, presenting hazards to health Headache 93502623 12/13/2013 Active Unspecified essential hypertension 96298516 Active Malignant neoplasm of cervix uteri, 934139797 Active unspecified Results Unknown or Not Available. Active Medications Medication Code Dose Units Frequency Route Modification Start Date/Time Metformin 1000MG 391275 6585 MILLIGRAMS TWICE A DAY ORAL 07/29/2014 Oral Tablet 06:20 Medications Administered During Visit Unknown or Not Available. Encounters Encounter Diagnosis Diagnosis Code Start Date PAIN IN OR AROUND EYE 39735 05/28/2015 Social History Smoking Status Code Start Date End Date Current every day smoker 073000868 11/27/1979 Patient Decision Aids Unknown or Not Available. Discharge Instructions You were admitted to [facility] on 05/28/2015 with a principal diagnosis of PAIN IN OR AROUND EYE. You were discharged from [facility] on 05/28/2015. Should you have any questions prior to discharge, please contact a member of your healthcare team. If you have left the hospital and have any questions, please contact your primary care physician. Chief Complaint and Reason For Visit Chief Complaint Date of Onset EYE INJURY Function Status Unknown or Not Available. Plan of Care Unknown or Not Available. Referral/Transition of Care Unknown or Not Available.
--- OUTSIDE RECORDS SUMMARY | 2017-03-13 14:13 | XMS REPORT | CCD ---
:1965 Author Name KIMBERLI ROY Address [address], [place] [phone] Care Team Providers Name Role Phone MED CHAIREZ MD Attending Physician Unavailable MED CHAIREZ MD Er Physician 1 Unavailable DONG Traylor Registered Nurse Unavailable Vital Signs Vital Sign Value Unit Date/Time Recent/Initial? Weight Measured 175 lbs 07/04/2015 10:34 Initial VS BP Systolic 154 mmHg 07/04/2015 10:34 Initial VS BP Diastolic 64 mmHg 07/04/2015 10:34 Initial VS Allergies Allergy Code Allergy Type Reaction Status BENADRYL 189636 Drug allergy ITCHING Active CYCLOBENZAPRINE 25284 Drug allergy Active KETOROLAC 47657 Drug allergy ITCHING Active TRAMADOL 97414 Drug allergy Active IMITREX NS SPR 20 MG 0 Drug allergy Active GABAPENTIN 47412 Drug allergy Active Procedures Procedure Code Procedure Type Date Injection or infusion of therapeutic or 9929 ICD-9 CM, Volume 3 07/04/2015 prophylactic substance History of Immunizations Unknown or Not Available. 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 192367157 Active MIGRAINE 79024165 12/25/2011 Active CEPHALGIA 62148490 01/09/2012 Active CHEST PAIN 27457069 06/19/2012 Active CONTUSION OF BACK 38270122 07/16/2012 Active CONTUSION OF HIP 89221237 07/16/2012 Active CONTUSION OF FOOT 77781134 08/08/2012 Active CONTUSION OF ANKLE 55470270 08/08/2012 Active NAUSEA WITH VOMITING 46043679 10/11/2012 Active CONTUSION OF CHEST WALL 50159886 12/24/2012 Active CALCULUS OF URETER 32490061 02/10/2013 Active OTHER SPECIFIED DISORDER OF NERVOUS SYSTEM 597357814 04/01/2013 Active CALCULUS OF KIDNEY 78775446 05/29/2013 Active Mononeuritis of upper limb, unspecified 66516413 07/26/2013 Active Pain in joint involving upper arm 89110546 09/21/2013 Active Anxiety state, unspecified 371404082 10/30/2013 Active Sprain of other specified sites of elbow 470123797 11/20/2013 Active and forearm Head injury, unspecified 73374365 12/12/2013 Active Personal history of surgery to heart and 752247358 Active great vessels, presenting hazards to health Headache 06196777 12/13/2013 Active Unspecified essential hypertension 61556162 Active Malignant neoplasm of cervix uteri, 085713856 Active unspecified Results Unknown or Not Available. Active Medications Medication Code Dose Units Frequency Route Modification Start Date/Time Metformin 1000MG 905174 1135 MILLIGRAMS TWICE A DAY ORAL 07/29/2014 Oral Tablet 06:20 Prescription Detail TAKE 1000 MILLIGRAMS ORAL TWICE A DAY Medications Administered During Visit Unknown or Not Available. Encounters Encounter Diagnosis Diagnosis Code Start Date HEADACHE 7840 07/04/2015 Social History Smoking Status Code Start Date End Date Current every day smoker 592765384 11/27/1979 Patient Decision Aids Unknown or Not Available. Discharge Instructions You were admitted to [facility] on 07/04/2015 with a principal diagnosis of HEADACHE. You had the following procedures done:INJECT INFUSE NEC You were discharged from [facility] on 07/04/2015. Should you have any questions prior to discharge, please contact a member of your healthcare team. If you have left the hospital and have any questions, please contact your primary care physician. Chief Complaint and Reason For Visit Chief Complaint Date of Onset HEAD JAW ARM PAIN Function Status Unknown or Not Available. Plan of Care Unknown or Not Available. Referral/Transition of Care Unknown or Not Available.
--- OUTSIDE RECORDS SUMMARY | 2017-03-13 14:13 | XMS REPORT | CCD ---
:1965 Author Name KIMBERLI ROY Dustin Address [address] [facility] Unavailable [place], [place] [phone] Care Team Providers Name Role Phone MIRI JHA Attending Physician Unavailable MIRI JHA Er Physician 1 Unavailable SANDRINE Traylor Registered Nurse Unavailable Vital Signs Vital Sign Value Unit Date/Time Recent/Initial? Weight Measured 170 lbs 04/14/2014 11:24 Initial VS Height 66 in 04/14/2014 11:24 Initial VS BMI (Body Mass Index) 27.44 kg/m^2 04/14/2014 11:24 Initial VS BSA (Body Surface Area) 1.89 m^2 04/14/2014 11:24 Initial VS Allergies Allergy Code Allergy Type Reaction Status KETOROLAC 0 Drug allergy (disorder) ITCHING Active TRAMADOL 0 Drug allergy (disorder) Active IMITREX NS SPR 20 MG 0 Drug allergy (disorder) Active GABAPENTIN 0 Drug allergy (disorder) Active Procedures Unknown. History of Immunizations Unknown. 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 00934 11/02/2011 Active ARTERY BP (HIGH BLOOD PRESSURE) 42813255 11/02/2011 Active CLOSED DISPLACED FRACTURE OF FIFTH 41167803 Active METATARSAL BONE GASTRO - ESOPHAGEAL REFLUX DISEASE 762497233 Active H/O ACUTE MYOCARDIAL INFARCTION 412 Active ACTIVE SMOKER 77907879 Active [place] CURRENT USE OF INSULIN 873948754 Active MIGRAINE 01379378 12/25/2011 Active CEPHALGIA 40036308 01/09/2012 Active CHEST PAIN 23312578 06/19/2012 Active CONTUSION OF BACK 69493173 07/16/2012 Active CONTUSION OF HIP 21424159 07/16/2012 Active CONTUSION OF FOOT 57935975 08/08/2012 Active CONTUSION OF ANKLE 70380030 08/08/2012 Active NAUSEA WITH VOMITING 30753110 10/11/2012 Active CONTUSION OF CHEST WALL 93130008 12/24/2012 Active CALCULUS OF URETER 91531286 02/10/2013 Active OTHER SPECIFIED DISORDER OF NERVOUS SYSTEM 874843675 04/01/2013 Active CALCULUS OF KIDNEY 65384644 05/29/2013 Active Mononeuritis of upper limb, unspecified 42346042 07/26/2013 Active Pain in joint involving upper arm 67092304 09/21/2013 Active Anxiety state, unspecified 197046672 10/30/2013 Active Sprain of other specified sites of elbow 970779833 11/20/2013 Active and forearm Head injury, unspecified 03647754 12/12/2013 Active Personal history of surgery to heart and 556917855 Active great vessels, presenting hazards to health Headache 02645364 12/13/2013 Active Unspecified essential hypertension 27410835 Active Malignant neoplasm of cervix uteri, 864681370 Active unspecified Results TROPONIN QUANTITATIVE Test Name Code Test Result Test Units Test Date/Time TROPONIN I 0.0400 ng/mL 04/14/2014 11:40 COMPREHENSIVE METABOLIC PANEL Test Name Code Test Result Test Units Test Date/Time GLUCOSE 168.0000 mg/dL 04/14/2014 11:40 SODIUM 136.0000 mmol/L 04/14/2014 11:40 POTASSIUM 4.6000 mmol/L 04/14/2014 11:40 CHLORIDE 103.0000 mmol/L 04/14/2014 11:40 CO2 25.0000 mmol/L 04/14/2014 11:40 BUN 17.0000 mg/dL 04/14/2014 11:40 CREATININE 1.0000 mg/dL 04/14/2014 11:40 BUN/CREAT 17.0000 04/14/2014 11:40 CALCIUM 9.3000 mg/dL 04/14/2014 11:40 TOTAL BILI 0.3000 mg/dL 04/14/2014 11:40 TOTAL PROTEIN 7.7000 g/dL 04/14/2014 11:40 ALBUMIN 3.9000 g/dL 04/14/2014 11:40 A/G RATIO 1.0000 04/14/2014 11:40 ALKALINE PHOS 116.0000 IU/L 04/14/2014 11:40 AST/SGOT 8.0000 IU/L 04/14/2014 11:40 ALT/SGPT 18.0000 IU/L 04/14/2014 11:40 ANION GAP 13.1000 mmol/L 04/14/2014 11:40 AGE 49[age]0000 YEARS 04/14/2014 11:40 GFR 62.6300 ml/min 04/14/2014 11:40 UA W/MICROSCOPIC EXAM Test Name Code Test Result Test Units Test Date/Time COLOR UR YELLOW N/A 04/14/2014 12:46 CLARITY UR CLOUDY N/A 04/14/2014 12:46 SP GRAV UR 1.034 N/A 04/14/2014 12:46 PH UR 5.5 N/A 04/14/2014 12:46 PROTEIN UR 2+ N/A 04/14/2014 12:46 GLUCOSE UR TRACE N/A 04/14/2014 12:46 KETONE UR NEGATIVE N/A 04/14/2014 12:46 BILIRUBIN UR NEGATIVE N/A 04/14/2014 12:46 BLOOD UR NEGATIVE N/A 04/14/2014 12:46 LEUK UR TRACE N/A 04/14/2014 12:46 NITRITE UR NEGATIVE N/A 04/14/2014 12:46 MICRO SEE BELOW N/A 04/14/2014 12:46 RBC/hpf 0 N/A 04/14/2014 12:46 WBC/hpf 8 N/A 04/14/2014 12:46 EPI UR >50 N/A 04/14/2014 12:46 BACTERIA UR MANY N/A 04/14/2014 12:46 MUCOUS NONE SEE N/A 04/14/2014 12:46 CAST NONE SEE N/A 04/14/2014 12:46 CRYSTALS NONE SEE N/A 04/14/2014 12:46 CULTURE? YES N/A 04/14/2014 12:46 PROTHROMBIN TIME, PLASMA Test Name Code Test Result [place] [address]-86 9.1000 Sec 04/14/2014 11:40 INR 48256-9 0.9000 04/14/2014 11:40 CBC Test Name Code Test Result Test Units Test Date/Time WBC 6690-2 8.1000 K/uL 04/14/2014 11:40 RBC 789-8 4.2000 M/uL 04/14/2014 11:40 HEMOGLOBIN 718-7 13.6000 g/dL 04/14/2014 11:40 HEMATOCRIT 40.8000 % 04/14/2014 11:40 MCV 97.1000 fL 04/14/2014 11:40 MCH 32.4000 PG 04/14/2014 11:40 MCHC 33.3000 G/DL 04/14/2014 11:40 RDW-SD 47.7000 FL 04/14/2014 11:40 RDW-CV 13.7000 % 04/14/2014 11:40 PLATELETS 205.0000 K/UL 04/14/2014 11:40 MPV 9.7000 FL 04/14/2014 11:40 %GRAN 44.4000 % 04/14/2014 11:40 %LYMPH 47.3000 % 04/14/2014 11:40 %MONO 5.6000 % 04/14/2014 11:40 %EOS 2.2000 % 04/14/2014 11:40 %BASO 0.5000 % 04/14/2014 11:40 #GRAN 3.5900 K/UL 04/14/2014 11:40 #LYMPH 3.8200 K/UL 04/14/2014 11:40 #MONO 0.4500 K/UL 04/14/2014 11:40 #EOS 0.1800 K/UL 04/14/2014 11:40 #BASO 0.0400 K/UL 04/14/2014 11:40 SLIDE REVIEWED? NOT INDICATED N/A 04/14/2014 11:40 MANUAL DIFF NOT INDICATED N/A 04/14/2014 11:40 Medications Medication Code Dose Units Frequency Route Modification Start Stop Date/Time Date/Time Pravastatin 861397 40 MILLIGRAM Before bed ORAL 08/24/2013 04/17/2014 40MG Oral S 10:59 12:31 Tablet Clopidogrel 320488 75 MILLIGRAM ORAL 08/24/2013 75MG Oral S 10:59 Tablet Aspirin 730901 325 MILLIGRAM ORAL 08/24/2013 04/17/2014 325MG Oral S 10:59 12:28 Tablet Lisinopril 897808 20 MILLIGRAM DAILY ORAL 11/20/2013 04/17/2014 20MG Oral S 21:32 12:29 Tablet Metformin 977453 500 MILLIGRAM TWICE A ORAL 01/24/2014 04/17/2014 500MG Oral S DAY 18:54 12:30 Tablet GlipiZIDE 523957 5 MILLIGRAM Every 8 hr ORAL 01/24/2014 04/17/2014 5MG Oral S as needed 18:54 12:30 Tablet Ambien 10MG 956984 10 MILLIGRAM AT BEDTIME ORAL 04/11/2014 Oral Tablet S 15:00 Proventil 250239 1-2 PUFF Every 4hr INHALATIO 04/11/2014 0.09MG/Actua as needed N 15:00 tion Inhalation Aerosol Powder Medications Administered Unknown. Encounters Encounter Diagnosis Diagnosis Code Start Date [place]ST [place] N[place] 04953 04/14/2014 Social History Smoking Status Code Start Date End Date Current every day smoker 223012860 Patient Decision Aids Unknown. Discharge Instructions You were admitted to [facility] on 04/14/2014 with a principle diagnosis of CHEST PAIN NEC. You had the following procedures done:INJECT INFUSE NEC You were discharged from [facility] on 04/14/2014. Should you have any questions prior to discharge, please contact a member of your healthcare team. If you have left the hospital and have any questions, please contact your primary care physician. Chief Complaint and Reason For Visit Chief Complaint Date of Onset CHEST PAIN Function Status Unknown. Plan of Care Unknown. Referral/Transition of Care Unknown.
--- OUTSIDE RECORDS SUMMARY | 2017-03-13 14:13 | XMS REPORT | CCD ---
:1965 Author Name KIMBERLI ROY Dustin Address [address] [facility] Unavailable [place], [place] [phone] Care Team Providers Name Role Phone RUTHIE GARNICA Attending Physician Unavailable RUTHIE GARNICA Er Physician 1 Unavailable Vital Signs Vital Sign Value Unit Weight Measured 170 lbs Height 67 in BMI (Body Mass Index) 26.63 kg/m^2 BSA (Body Surface Area) 1.91 m^2 Allergies Allergy Code Allergy Type Reaction Status KETOROLAC 0 Drug allergy (disorder) ITCHING Active TRAMADOL 0 Drug allergy (disorder) Active IMITREX NS SPR 20 MG 0 Drug allergy (disorder) Active GABAPENTIN 0 Drug allergy (disorder) Active Procedures Unknown. History of Immunizations Unknown. 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 142188391 Active MIGRAINE 38061236 12/25/2011 Active CEPHALGIA 08267090 01/09/2012 Active CHEST PAIN 43494448 06/19/2012 Active CONTUSION OF BACK 91592964 07/16/2012 Active CONTUSION OF HIP 70128069 07/16/2012 Active CONTUSION OF FOOT 31042321 08/08/2012 Active CONTUSION OF ANKLE 36582597 08/08/2012 Active NAUSEA WITH VOMITING 23746173 10/11/2012 Active CONTUSION OF CHEST WALL 61965682 12/24/2012 Active CALCULUS OF URETER 22104584 02/10/2013 Active OTHER SPECIFIED DISORDER OF NERVOUS SYSTEM 801323361 04/01/2013 Active CALCULUS OF KIDNEY 62268251 05/29/2013 Active Mononeuritis of upper limb, unspecified 02988963 07/26/2013 Active Pain in joint involving upper arm 70338802 09/21/2013 Active Anxiety state, unspecified 056715134 10/30/2013 Active Sprain of other specified sites of elbow 293897751 11/20/2013 Active and forearm Head injury, unspecified 46217609 12/12/2013 Active Personal history of surgery to heart and 620003062 Active great vessels, presenting hazards to health Headache 42457448 12/13/2013 Active Unspecified essential hypertension 99794085 Active Malignant neoplasm of cervix uteri, 666345133 Active unspecified Results Unknown. Medications Medication Code Dose Units Frequency Route Modification Start Stop Date/Time Date/Time Pravastatin 350320 40 MILLIGRAM Before bed ORAL 08/24/2013 40MG Oral S 10:59 Tablet Clopidogrel 935690 75 MILLIGRAM ORAL 08/24/2013 75MG Oral S 10:59 Tablet Aspirin 422662 325 MILLIGRAM ORAL 08/24/2013 325MG Oral S 10:59 Tablet Lisinopril 046039 20 MILLIGRAM DAILY ORAL 11/20/2013 20MG Oral S 21:32 Tablet Metformin 971577 500 MILLIGRAM TWICE A ORAL 01/24/2014 500MG Oral S DAY 18:54 Tablet GlipiZIDE 561143 5 MILLIGRAM Every 8 hr ORAL 01/24/2014 5MG Oral S as needed 18:54 Tablet Tylenol 759480 1 EACH ORAL w/Codeine #3 300MG-30MG Oral Tablet Proventil 533750 1-2 PUFF Every 4hr INHALATIO 0.09MG/Actua as needed N tion Inhalation Aerosol Powder Z-PACK 0 DAILY ORAL Z-PACK 0 DAILY ORAL Medications Administered Unknown. Encounters Encounter Diagnosis Diagnosis Code Start Date HEADACHE 7840 03/15/2014 Social History Smoking Status Code Start Date End Date Current every day smoker 348817167 Patient Decision Aids Patient Decision Aid [facility] Patient Educational Materials HC-Patient Portal Instructions Instructions You were admitted to [facility] on 03/15/2014 with a principle diagnosis of HEADACHE. You were discharged from [facility] on 03/15/2014. Should you have any questions prior to discharge, please contact a member of your healthcare team. If you have left the hospital and have any questions, please contact your primary care physician. Chief Complaint and Reason For Visit Chief Complaint Date of Onset MIGRAINE COUGH Function Status Unknown. Plan of Care Unknown. Referral/Transition of Care Unknown.
--- OUTSIDE RECORDS SUMMARY | 2017-03-13 14:13 | XMS REPORT | CCD ---
:1965 Author Name GATITO CABELLO Address [address] Unavailable [place], [place] [id number] Care Team Providers Name Role Phone VARUN YANEZ Attending Physician Unavailable Vital Signs Unknown or Not Available. Allergies Allergy Code Allergy Type Reaction Status BENADRYL 854277 Drug allergy ITCHING Active CYCLOBENZAPRINE 23003 Drug allergy Active KETOROLAC 86652 Drug allergy ITCHING Active VALDEZ SEAL 0 Drug allergy Active TRAMADOL 58294 Drug allergy Active IMITREX NS SPR 20 MG 0 Drug allergy Active GABAPENTIN 36537 Drug allergy Active Procedures Procedure Code Procedure Type Date SHOULDER 2 OR [address] V[id number] 09/14/2016 History of Immunizations Unknown or Not Available. 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 94411 11/02/2011 Active ARTERY BP (HIGH BLOOD PRESSURE) 85700782 11/02/2011 Active CLOSED DISPLACED FRACTURE OF FIFTH 54875867 Active METATARSAL BONE GASTRO - ESOPHAGEAL REFLUX DISEASE 865978042 Active H/O ACUTE MYOCARDIAL INFARCTION 412 Active ACTIVE SMOKER 94121364 Active DETENTION CURRENT USE OF INSULIN 365057408 Active MIGRAINE 25260922 12/25/2011 Active CEPHALGIA 23135883 01/09/2012 Active CHEST PAIN 22300902 06/19/2012 Active CONTUSION OF BACK 41727546 07/16/2012 Active CONTUSION OF HIP 15525940 07/16/2012 Active CONTUSION OF FOOT 27885957 08/08/2012 Active CONTUSION OF ANKLE 30636069 08/08/2012 Active NAUSEA WITH VOMITING 24459113 10/11/2012 Active CONTUSION OF CHEST WALL 36696598 12/24/2012 Active CALCULUS OF URETER 45307613 02/10/2013 Active OTHER SPECIFIED DISORDER OF NERVOUS SYSTEM 435225892 04/01/2013 Active CALCULUS OF KIDNEY 36848507 05/29/2013 Active Mononeuritis of upper limb, unspecified 03313468 07/26/2013 Active Pain in joint involving upper arm 33704559 09/21/2013 Active Anxiety state, unspecified 193715885 10/30/2013 Active Sprain of other specified sites of elbow 823125179 11/20/2013 Active and forearm Head injury, unspecified 01029343 12/12/2013 Active Personal history of surgery to heart and 027732298 Active great vessels, presenting hazards to health Headache 77992348 12/13/2013 Active Unspecified essential hypertension 00720462 Active Malignant neoplasm of cervix uteri, 623057048 Active unspecified Results Unknown or Not Available. Active Medications Medication Code Dose Units Frequency Route Modification Start Date/Time Metformin 1000MG 444772 4500 MILLIGRAMS TWICE A DAY ORAL 07/29/2014 Oral Tablet 06:20 Prescription Detail TAKE 1000 MILLIGRAMS ORAL TWICE A DAY Medications Administered During Visit Unknown or Not Available. Encounters Encounter Diagnosis Diagnosis Code Start Date Nondisplaced fracture of greater tuberosity of right [id number] 09/14/2016 humerus, subsequent encounter for fracture with routine healing Social History Smoking Status Code Start Date End Date Current every day smoker 940478445 11/27/1979 Patient Decision Aids Unknown or Not Available. Discharge Instructions You were admitted to [facility] on 09/14/2016 10:52 with a principal diagnosis of Nondisplaced fracture of greater tuberosity of right humerus, subsequent e You were discharged from [facility] on 09/14/2016 10:52 Should you have [...]
--- OUTSIDE RECORDS SUMMARY | 2017-03-13 14:13 | XMS REPORT | CCD ---
:1965 Author Name KIMBERLI ROY Dustin Address [address] [place], [place] [address] Care Team Providers Name Role Phone SANTINO DYER Attending Physician Unavailable SANTINO DYER Er Physician 1 Unavailable M.CASSIDY DARON Registered Nurse Unavailable Vital Signs Unknown. Allergies Allergy Code Allergy Type Reaction Status KETOROLAC 0 Drug allergy (disorder) ITCHING Active TRAMADOL 0 Drug allergy (disorder) Active IMITREX NS SPR 20 MG 0 Drug allergy (disorder) Active GABAPENTIN 0 Drug allergy (disorder) Active Procedures Unknown. History of Immunizations Unknown. 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 145261355 Active MIGRAINE 89556261 12/25/2011 Active CEPHALGIA 13767444 01/09/2012 Active CHEST PAIN 72009366 06/19/2012 Active CONTUSION OF BACK 17253980 07/16/2012 Active CONTUSION OF HIP 34219958 07/16/2012 Active CONTUSION OF FOOT 21969024 08/08/2012 Active CONTUSION OF ANKLE 28364799 08/08/2012 Active NAUSEA WITH VOMITING 97942325 10/11/2012 Active CONTUSION OF CHEST WALL 72251690 12/24/2012 Active CALCULUS OF URETER 17636670 02/10/2013 Active OTHER SPECIFIED DISORDER OF NERVOUS SYSTEM 483665096 04/01/2013 Active CALCULUS OF KIDNEY 54874857 05/29/2013 Active Mononeuritis of upper limb, unspecified 27152094 07/26/2013 Active Pain in joint involving upper arm 91120113 09/21/2013 Active Anxiety state, unspecified 088026026 10/30/2013 Active Sprain of other specified sites of elbow 926557572 11/20/2013 Active and forearm Head injury, unspecified 85865887 12/12/2013 Active Personal history of surgery to heart and 269786818 Active great vessels, presenting hazards to health Headache 74339633 12/13/2013 Active Unspecified essential hypertension 09644658 Active Malignant neoplasm of cervix uteri, 775097118 Active unspecified Results Unknown. Medications Medication Code Dose Units Frequency Route Modification Start Stop Date/Time Date/Time Clopidogrel 589621 75 MILLIGRA ORAL 08/24/2013 75MG Oral MS 10:59 Tablet Ambien 10MG 029204 10 MILLIGRA AT BEDTIME ORAL 04/11/2014 Oral Tablet MS 15:00 Proventil 603621 1-2 PUFF Every 4hr INHALATI 04/11/2014 0.09MG/Actuati as needed ON 15:00 on Inhalation Aerosol Powder Aspirin 81MG 986185 81 MILLIGRA DAILY ORAL 04/17/2014 Oral Tablet, MS 12:34 Enteric Coated Lisinopril 5MG 983264 5 MILLIGRA DAILY ORAL 04/17/2014 Oral Tablet MS 12:34 GlipiZIDE 5MG 847156 5 MILLIGRA TWICE A ORAL 04/17/2014 Oral Tablet MS DAY WITH 12:35 FOOD Metformin 851637 500 MILLIGRA TWICE ORAL 04/17/2014 500MG Oral MS DAILY WITH 12:35 Tablet FOOD Tylenol 325MG 205134 325 MILLIGRA Every 6hr ORAL 04/17/2014 Oral Tablet MS as needed 12:35 Nitroglycerin 070235 0.4 MILLIGRA EVERY 5 SUBLINGU 04/17/2014 0.4MG MS MINS x 3 AL 12:35 Sublingual NEEDED Tablet Nitroglycerin 255850 0.4 MILLIGRA EVERY 5 SUBLINGU 0.4MG MS MINS x 3 AL Sublingual NEEDED Tablet Tylenol 325MG 944174 325 MILLIGRA Every 6hr ORAL Oral Tablet MS as needed Metformin 881156 500 MILLIGRA TWICE ORAL 500MG Oral MS DAILY WITH Tablet FOOD GlipiZIDE 5MG 509926 5 MILLIGRA TWICE A ORAL Oral Tablet MS DAY WITH FOOD Lisinopril 5MG 625787 5 MILLIGRA DAILY ORAL Oral Tablet MS Aspirin 81MG 415909 81 MILLIGRA DAILY ORAL Oral Tablet, MS Enteric Coated Medications Administered Unknown. Encounters Encounter Diagnosis Diagnosis Code Start Date INSOMNIA, UNSPECIFIED 88656 04/17/2014 Social History Smoking Status Code Start Date End Date Current every day smoker 505982428 Patient Decision Aids Unknown. Discharge Instructions You were admitted to [facility] on 04/17/2014 with a principle diagnosis of INSOMNIA, UNSPECIFIED. You were discharged from [facility] on 04/17/2014. Should you have any questions prior to discharge, please contact a member of your healthcare team. If you have left the hospital and have any questions, please contact your primary care physician. Chief Complaint and Reason For Visit Chief Complaint Date of Onset MEDICINE CONSULTATION Function Status Unknown. Plan of Care Unknown. Referral/Transition of Care Unknown.
--- OUTSIDE RECORDS SUMMARY | 2017-03-13 14:13 | XMS REPORT | CCD ---
:1965 Author Name KIMBERLI ROY Address [address] [place] [address], [place] [address] Care Team Providers Name Role Phone MOISES LEON Attending Physician Unavailable MOISES LEON Er Physician 1 Unavailable GLORIA Salas Registered Nurse Unavailable Vital Signs Vital Sign Value Unit Date/Time Recent/Initial? Weight Measured 172.4 lbs 07/16/2015 13:30 Initial VS Height 67 in 07/16/2015 13:30 Initial VS BMI (Body Mass Index) 27 kg/m^2 07/16/2015 13:30 Initial VS BSA (Body Surface Area) 1.92 m^2 07/16/2015 13:30 Initial VS BP Systolic 159 mmHg 07/16/2015 13:30 Initial VS BP Diastolic 62 mmHg 07/16/2015 13:30 Initial VS Allergies Allergy Code Allergy Type Reaction Status BENADRYL 703073 Drug allergy ITCHING Active CYCLOBENZAPRINE 28863 Drug allergy Active KETOROLAC 08335 Drug allergy ITCHING Active TRAMADOL 92401 Drug allergy Active IMITREX NS SPR 20 MG 0 Drug allergy Active GABAPENTIN 81475 Drug allergy Active Procedures Procedure Code Procedure Type Date Injection or infusion of therapeutic or 9929 ICD-9 CM, Volume 3 07/16/2015 prophylactic substance TSH 91827593 SNOMED CT 07/16/2015 History of Immunizations Unknown or Not Available. 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 509289965 Active MIGRAINE 81436508 12/25/2011 Active CEPHALGIA 42729756 01/09/2012 Active CHEST PAIN 19134722 06/19/2012 Active CONTUSION OF BACK 19372624 07/16/2012 Active CONTUSION OF HIP 54175047 07/16/2012 Active CONTUSION OF FOOT 94782098 08/08/2012 Active CONTUSION OF ANKLE 40193971 08/08/2012 Active NAUSEA WITH VOMITING 94717648 10/11/2012 Active CONTUSION OF CHEST WALL 55547406 12/24/2012 Active CALCULUS OF URETER 10228861 02/10/2013 Active OTHER SPECIFIED DISORDER OF NERVOUS SYSTEM 431516214 04/01/2013 Active CALCULUS OF KIDNEY 66350548 05/29/2013 Active Mononeuritis of upper limb, unspecified 71968382 07/26/2013 Active Pain in joint involving upper arm 05463763 09/21/2013 Active Anxiety state, unspecified 077205702 10/30/2013 Active Sprain of other specified sites of elbow 605773596 11/20/2013 Active and forearm Head injury, unspecified 29006290 12/12/2013 Active Personal history of surgery to heart and 499058708 Active great vessels, presenting hazards to health Headache 33671758 12/13/2013 Active Unspecified essential hypertension 13929094 Active Malignant neoplasm of cervix uteri, 461556367 Active unspecified Results BASIC METABOLIC PANEL - Collect Date/Time: 07/16/2015 13:59 Test Name Code Test Result Test Units Test Ref Range GLUCOSE 163 mg/dL L=74 H=106 SODIUM 137 mmol/L L=136 H=145 POTASSIUM 4.1 mmol/L L=3.5 H=5.1 CHLORIDE 104 mmol/L L=98 H=107 CO2 21 mmol/L L=21 H=32 BUN 18.0 mg/dL L=7.0 H=18.0 CREATININE 1.3 mg/dL L=0.6 H=1.0 BUN/CREAT 13.8 L=7.6 H=21.2 CALCIUM 8.6 mg/dL L=8.6 H=10.1 ANION GAP 16.2 mmol/L L=7.0 H=16.0 AGE 50 YEARS GFR 45.90 ml/min RAPID URINE DRUG SCREEN - Collect Date/Time: 07/16/2015 13:59 Test Name Code Test Result Test Units Test Ref Range CANNABINOIDS (THC) NEGATIVE N/A NORMAL:Negative OPIATES NEGATIVE N/A NORMAL:Negative AMPHETAMINES NEGATIVE N/A NORMAL:Negative COCAINE NEGATIVE N/A NORMAL:Negative TRICYCLIC ANTIDEPRES NEGATIVE N/A NORMAL:Negative BARBITURATES NEGATIVE N/A NORMAL:Negative METHADONE POSITIVE N/A NORMAL:Negative BENZODIAZEPINES POSITIVE N/A NORMAL:Negative PROPOXYPHENE NEGATIVE N/A NORMAL:Negative METHAMPHETAMINE NEGATIVE N/A NORMAL:Negative TSH - Collect Date/Time: 07/16/2015 13:59 Test Name Code Test Result Test Units Test Ref Range TSH 3016-3 1.488 uIU/ml L=0.360 H=3.740 CBC W/DIFF - Collect Date/Time: 07/16/2015 13:59 Test Name Code Test Result Test Units Test Ref Range WBC 6690-2 8.4 K/uL L=3.2 H=10.0 RBC 789-8 3.60 M/uL L=4.00 H=5.20 HEMOGLOBIN 718-7 12.6 g/dL L=12.1 H=15.6 HEMATOCRIT 36.8 % L=35.0 H=47.0 MCV 102.2 fL L=81.0 H=101 MCH 35.0 PG L=26.0 H=38.0 MCHC 34.2 G/DL L=31.0 H=37.0 RDW-SD 48.0 FL L=37.0 H=54.0 RDW-CV 13.4 % L=11.0 H=16.0 PLATELETS 191 K/UL L=140 H=380 MPV 9.6 FL L=9.0 H=13.0 %GRAN 56.1 % L=0.0 H=75.0 %LYMPH 37.7 % L=0.0 H=50.0 %MONO 5.0 % L=0.0 H=14.0 %EOS 0.8 % L=0.0 H=6.0 %BASO 0.4 % L=0.0 H=1.0 #GRAN 4.71 K/UL L=1.80 H=7.80 #LYMPH 3.17 K/UL L=0.30 H=4.00 #MONO 0.42 K/UL L=0.00 H=0.70 #EOS 0.07 K/UL L=0.00 H=0.40 #BASO 0.03 K/UL L=0.00 H=0.10 SLIDE REVIEWED? NOT INDICATED N/A MANUAL DIFF NOT INDICATED N/A UA W/MICROSCOPIC EXAM - Collect Date/Time: 07/16/2015 13:59 Test Name Code Test Result Test Units Test Ref Range COLOR UR Yellow N/A NORMAL:YELLOW CLARITY UR Clear N/A NORMAL:CLEAR SP GRAV UR 1.020 N/A NORMAL:1.000-1.030 PH UR 5.5 N/A NORMAL:5.0-8.5 PROTEIN UR 2+ N/A NORMAL:NEGATIVE GLUCOSE UR Negative N/A NORMAL:NEGATIVE KETONE UR Negative N/A NORMAL:NEGATIVE BILIRUBIN UR Negative N/A NORMAL:NEGATIVE BLOOD UR Trace-ly N/A NORMAL:NEGATIVE LEUK UR Negative N/A NORMAL:NEGATIVE NITRITE UR Negative N/A NORMAL:NEGATIVE MICRO SEE BELOW N/A RBC/hpf 2 N/A NORMAL:0-5/hpf WBC/hpf 2 N/A NORMAL:0-10/hpf EPI UR 10-20 N/A NORMAL:NONE SEEN BACTERIA UR FEW N/A NORMAL:NONE SEEN MUCOUS NONE SEE N/A NORMAL:NONE SEEN CAST NONE SEE N/A CRYSTALS NONE SEE N/A CULTURE? NO N/A Active Medications Medication Code Dose Units Frequency Route Modification Start Date/Time Metformin 1000MG 120705 9069 MILLIGRAMS TWICE A DAY ORAL 07/29/2014 Oral Tablet 06:20 Prescription Detail TAKE 1000 MILLIGRAMS ORAL TWICE A DAY Medications Administered During Visit Unknown or Not Available. Encounters Encounter Diagnosis Diagnosis Code Start Date DIZZINESS AND GIDDINESS 7804 07/16/2015 Social History Smoking Status Code Start Date End Date Current every day smoker 048553966 11/27/1979 Patient Decision Aids Unknown or Not Available. Discharge Instructions You were admitted to [facility] on 07/16/2015 with a principal diagnosis of DIZZINESS AND GIDDINESS. You had the following procedures done:INJECT INFUSE NEC You were discharged from [facility] on 07/16/2015. Should you have any questions prior to discharge, please contact a member of your healthcare team. If you have left the hospital and have any questions, please contact your primary care physician. Chief Complaint and Reason For Visit Chief Complaint Date of Onset VERTIGO Function Status Unknown or Not Available. Plan of Care Unknown or Not Available. Referral/Transition of Care Unknown or Not Available.
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
--- OUTSIDE RECORDS SUMMARY | 2017-03-13 14:13 | XMS REPORT | CCD ---
:1965 Author Name KIMBERLI ROY Dustin Address [address] [facility] Unavailable [place], [place] [id number] Care Team Providers Name Role Phone MOISES LEON Attending Physician Unavailable MOISES LEON Er Physician 1 Unavailable Vital Signs Vital Sign Value Unit Date/Time Recent/Initial? Weight Measured 155 lbs 05/07/2015 19:04 Initial VS Height 67 in 05/07/2015 19:04 Initial VS BMI (Body Mass Index) 24.28 kg/m^2 05/07/2015 19:04 Initial VS BSA (Body Surface Area) 1.82 m^2 05/07/2015 19:04 Initial VS Allergies Allergy Code Allergy Type Reaction Status KETOROLAC 54604 Drug allergy ITCHING Active TRAMADOL 63573 Drug allergy Active IMITREX NS SPR 20 MG 0 Drug allergy Active GABAPENTIN 15162 Drug allergy Active Procedures Unknown or Not Available. History of Immunizations Unknown or Not Available. 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 387403874 Active MIGRAINE 80441669 12/25/2011 Active CEPHALGIA 68356316 01/09/2012 Active CHEST PAIN 44870829 06/19/2012 Active CONTUSION OF BACK 65632160 07/16/2012 Active CONTUSION OF HIP 27450815 07/16/2012 Active CONTUSION OF FOOT 11859205 08/08/2012 Active CONTUSION OF ANKLE 27151046 08/08/2012 Active NAUSEA WITH VOMITING 15405104 10/11/2012 Active CONTUSION OF CHEST WALL 58652476 12/24/2012 Active CALCULUS OF URETER 74114729 02/10/2013 Active OTHER SPECIFIED DISORDER OF NERVOUS SYSTEM 591055284 04/01/2013 Active CALCULUS OF KIDNEY 93392149 05/29/2013 Active Mononeuritis of upper limb, unspecified 27787921 07/26/2013 Active Pain in joint involving upper arm 50766166 09/21/2013 Active Anxiety state, unspecified 032761418 10/30/2013 Active Sprain of other specified sites of elbow 797850145 11/20/2013 Active and forearm Head injury, unspecified 89886872 12/12/2013 Active Personal history of surgery to heart and 259109499 Active great vessels, presenting hazards to health Headache 96190024 12/13/2013 Active Unspecified essential hypertension 58724141 Active Malignant neoplasm of cervix uteri, 678491615 Active unspecified Results Unknown or Not Available. Active Medications Medication Code Dose Units Frequency Route Modification Start Date/Time Metformin 1000MG 010958 3611 MILLIGRAMS TWICE A DAY ORAL 07/29/2014 Oral Tablet 06:20 Medications Administered During Visit Unknown or Not Available. Encounters Encounter Diagnosis Diagnosis Code Start Date LUMBAGO 7242 05/07/2015 Social History Smoking Status Code Start Date End Date Current every day smoker 635079341 11/27/1979 Patient Decision Aids Unknown or Not Available. Discharge Instructions You were admitted to [facility] on 05/07/2015 with a principal diagnosis of LUMBAGO. You were discharged from [facility] on 05/07/2015. Should you have any questions prior to discharge, please contact a member of your healthcare team. If you have left the hospital and have any questions, please contact your primary care physician. Chief Complaint and Reason For Visit Chief Complaint Date of Onset SHOULDER AND BACK PAIN Function Status Unknown or Not Available. Plan of Care Unknown or Not Available. Referral/Transition of Care Unknown or Not Available.
--- OUTSIDE RECORDS SUMMARY | 2017-03-13 14:13 | XMS REPORT | CCD ---
:1965 Author Name KIMBERLI LLOYD Dustin Address [address] [facility] Unavailable [place], [place] [id number] Care Team Providers Name Role Phone RUTHIE GARNICA Attending Physician Unavailable RUTHIE GARNICA Er Physician 1 Unavailable Vital Signs Vital Sign Value Unit Weight Measured 177 lbs Height 67 in BMI (Body Mass Index) 27.72 kg/m^2 BSA (Body Surface Area) 1.95 m^2 Allergies Allergy Code Allergy Type Reaction Status KETOROLAC 0 Drug allergy (disorder) ITCHING Active TRAMADOL 0 Drug allergy (disorder) Active IMITREX NS SPR 20 MG 0 Drug allergy (disorder) Active GABAPENTIN 0 Drug allergy (disorder) Active Procedures Unknown. History of Immunizations Unknown. 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 67782 11/02/2011 Active ARTERY BP (HIGH BLOOD PRESSURE) 51784277 11/02/2011 Active CLOSED DISPLACED FRACTURE OF FIFTH 80066073 Active METATARSAL BONE GASTRO - ESOPHAGEAL REFLUX DISEASE 815107229 Active H/O ACUTE MYOCARDIAL INFARCTION 412 Active ACTIVE SMOKER 39668138 Active FCI CURRENT USE OF INSULIN 947162453 Active MIGRAINE 30275364 12/25/2011 Active CEPHALGIA 15871820 01/09/2012 Active CHEST PAIN 08861231 06/19/2012 Active CONTUSION OF BACK 33760509 07/16/2012 Active CONTUSION OF HIP 85653761 07/16/2012 Active CONTUSION OF FOOT 89677643 08/08/2012 Active CONTUSION OF ANKLE 40540016 08/08/2012 Active NAUSEA WITH VOMITING 13378698 10/11/2012 Active CONTUSION OF CHEST WALL 75002933 12/24/2012 Active CALCULUS OF URETER 74704888 02/10/2013 Active OTHER SPECIFIED DISORDER OF NERVOUS SYSTEM 589684493 04/01/2013 Active CALCULUS OF KIDNEY 33965245 05/29/2013 Active Mononeuritis of upper limb, unspecified 48120535 07/26/2013 Active Pain in joint involving upper arm 26246715 09/21/2013 Active Anxiety state, unspecified 638732917 10/30/2013 Active Sprain of other specified sites of elbow 549367649 11/20/2013 Active and forearm Head injury, unspecified 49963787 12/12/2013 Active Personal history of surgery to heart and 850078055 Active great vessels, presenting hazards to health Headache 96702635 12/13/2013 Active Unspecified essential hypertension 28085192 Active Malignant neoplasm of cervix uteri, 312902537 Active unspecified Results COMPREHENSIVE METABOLIC PANEL Test Name Code Test Result Test Units Test Date/Time GLUCOSE 298.0000 mg/dL 01/24/2014 17:47 SODIUM 135.0000 mmol/L 01/24/2014 17:47 POTASSIUM 3.9000 mmol/L 01/24/2014 17:47 CHLORIDE 100.0000 mmol/L 01/24/2014 17:47 CO2 26.0000 mmol/L 01/24/2014 17:47 BUN 7.0000 mg/dL 01/24/2014 17:47 CREATININE 1.1000 mg/dL 01/24/2014 17:47 BUN/CREAT 6.4000 01/24/2014 17:47 CALCIUM 9.0000 mg/dL 01/24/2014 17:47 TOTAL BILI 0.3000 mg/dL 01/24/2014 17:47 TOTAL PROTEIN 7.5000 g/dL 01/24/2014 17:47 ALBUMIN 3.5000 g/dL 01/24/2014 17:47 A/G RATIO 0.9000 01/24/2014 17:47 ALKALINE PHOS 165.0000 IU/L 01/24/2014 17:47 AST/SGOT 12.0000 IU/L 01/24/2014 17:47 ALT/SGPT 23.0000 IU/L 01/24/2014 17:47 ANION GAP 13.3000 mmol/L 01/24/2014 17:47 AGE 48.0000 YEARS 01/24/2014 17:47 GFR 56.1100 ml/min 01/24/2014 17:47 CBC Test Name Code Test Result Test Units Test Date/Time WBC 6690-2 8.9000 K/uL 01/24/2014 17:47 RBC 789-8 3.8700 M/uL 01/24/2014 17:47 HEMOGLOBIN 718-7 12.6000 g/dL 01/24/2014 17:47 HEMATOCRIT 38.4000 % 01/24/2014 17:47 MCV 99.2000 fL 01/24/2014 17:47 MCH 32.6000 PG 01/24/2014 17:47 MCHC 32.8000 G/DL 01/24/2014 17:47 RDW-SD 47.9000 FL 01/24/2014 17:47 RDW-CV 13.7000 % 01/24/2014 17:47 PLATELETS 239.0000 K/UL 01/24/2014 17:47 MPV 9.9000 FL 01/24/2014 17:47 %GRAN 56.4000 % 01/24/2014 17:47 %LYMPH 36.0000 % 01/24/2014 17:47 %MONO 6.4000 % 01/24/2014 17:47 %EOS 0.9000 % 01/24/2014 17:47 %BASO 0.3000 % 01/24/2014 17:47 #GRAN 4.9900 K/UL 01/24/2014 17:47 #LYMPH 3.1900 K/UL 01/24/2014 17:47 #MONO 0.5700 K/UL 01/24/2014 17:47 #EOS 0.0800 K/UL 01/24/2014 17:47 #BASO 0.0300 K/UL 01/24/2014 17:47 SLIDE REVIEWED? NOT INDICATED N/A 01/24/2014 17:47 MANUAL DIFF NOT INDICATED N/A 01/24/2014 17:47 UA W/MICROSCOPIC EXAM Test Name Code Test Result Test Units Test Date/Time COLOR UR YELLOW N/A 01/24/2014 17:47 CLARITY UR SL CLOUDY N/A 01/24/2014 17:47 SP GRAV UR 1.015 N/A 01/24/2014 17:47 PH UR 6.0 N/A 01/24/2014 17:47 PROTEIN UR 2+ N/A 01/24/2014 17:47 GLUCOSE UR 2+ N/A 01/24/2014 17:47 KETONE UR TRACE N/A 01/24/2014 17:47 BILIRUBIN UR NEGATIVE N/A 01/24/2014 17:47 BLOOD UR NEGATIVE N/A 01/24/2014 17:47 LEUK UR TRACE N/A 01/24/2014 17:47 NITRITE UR NEGATIVE N/A 01/24/2014 17:47 MICRO SEE BELOW N/A 01/24/2014 17:47 RBC/hpf 0 N/A 01/24/2014 17:47 WBC/hpf 2 N/A 01/24/2014 17:47 EPI UR >50 N/A 01/24/2014 17:47 BACTERIA UR MODERATE N/A 01/24/2014 17:47 MUCOUS NONE SEE N/A 01/24/2014 17:47 CAST NONE SEEN N/A 01/24/2014 17:47 CRYSTALS NONE SEEN N/A 01/24/2014 17:47 CULTURE? YES N/A 01/24/2014 17:47 Medications Medication Code Dose Units Frequency Route Modification Start Stop Date/Time Date/Time Pravastatin 234209 40 MILLIGRAMS Before bed ORAL 08/24/2013 40MG Oral 10:59 Tablet Clopidogrel 284881 75 MILLIGRAMS ORAL 08/24/2013 75MG Oral 10:59 Tablet Aspirin 325MG 384352 325 MILLIGRAMS ORAL 08/24/2013 Oral Tablet 10:59 Lisinopril 865745 20 MILLIGRAMS DAILY ORAL 11/20/2013 20MG Oral 21:32 Tablet Hydrocodone 888101 1 TABLET Every BY For pain 11/29/2013 Bitart/Acet 4-6hr PRN MOUTH 01:37 325MG-5MG Oral Tablet Metformin 997393 500 MILLIGRAMS TWICE A ORAL 01/24/2014 500MG Oral DAY 18:54 Tablet GlipiZIDE 5MG 670331 5 MILLIGRAMS Every 8 hr ORAL 01/24/2014 Oral Tablet as needed 18:54 Medications Administered Unknown. Encounters Encounter Diagnosis Diagnosis Code Start Date DIABETES W UNSPEC COMP, TYPE 2 UNSP 22552 01/24/2014 Social History Smoking Status Code Start Date End Date Current every day smoker 081991837 Patient Decision Aids Patient Decision Aid HC-ED Patient Educational Materials Instructions You were admitted to [facility] on 01/24/2014 with a principle diagnosis of DIABETES W UNSPEC COMP, TYPE 2 UNSP. You were discharged from [facility] on 01/24/2014. Should you have any questions prior to discharge, please contact a member of your healthcare team. If you have left the hospital and have any questions, please contact your primary care physician. Chief Complaint and Reason For Visit Unknown. Function Status Unknown. Plan of Care Unknown. Referral/Transition of Care Unknown.
--- OUTSIDE RECORDS SUMMARY | 2017-03-13 14:14 | XMS REPORT | CCD ---
:1965 Author Name GATITO CABELLO Address [address] Unavailable [place], [place] [address] Care Team Providers Name Role Phone MIHAELA POLLOCK, MED Dykes Attending Physician Unavailable Vital Signs Unknown or Not Available. Allergies Allergy Code Allergy Type Reaction Status BENADRYL 326252 Drug allergy ITCHING Active CYCLOBENZAPRINE 04417 Drug allergy Active KETOROLAC 24817 Drug allergy ITCHING Active TRAMADOL 50630 Drug allergy Active IMITREX NS SPR 20 MG 0 Drug allergy Active GABAPENTIN 67266 Drug allergy Active Procedures Procedure Code Procedure Type Date EKG 21170518 SNOMED CT 12/18/2015 CHEST [address] 12/18/2015 History of Immunizations Unknown or Not Available. 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 884872508 Active MIGRAINE 43331193 12/25/2011 Active CEPHALGIA 39557208 01/09/2012 Active CHEST PAIN 76348126 06/19/2012 Active CONTUSION OF BACK 99980822 07/16/2012 Active CONTUSION OF HIP 21031222 07/16/2012 Active CONTUSION OF FOOT 49749043 08/08/2012 Active CONTUSION OF ANKLE 88689342 08/08/2012 Active NAUSEA WITH VOMITING 63154810 10/11/2012 Active CONTUSION OF CHEST WALL 22294316 12/24/2012 Active CALCULUS OF URETER 10961377 02/10/2013 Active OTHER SPECIFIED DISORDER OF NERVOUS SYSTEM 143544889 04/01/2013 Active CALCULUS OF KIDNEY 07479126 05/29/2013 Active Mononeuritis of upper limb, unspecified 05256385 07/26/2013 Active Pain in joint involving upper arm 82686689 09/21/2013 Active Anxiety state, unspecified 802150163 10/30/2013 Active Sprain of other specified sites of elbow 539690721 11/20/2013 Active and forearm Head injury, unspecified 40332180 12/12/2013 Active Personal history of surgery to heart and 150100780 Active great vessels, presenting hazards to health Headache 74956488 12/13/2013 Active Unspecified essential hypertension 88181661 Active Malignant neoplasm of cervix uteri, 698343780 Active unspecified Results COMPREHENSIVE METABOLIC PANEL - Collect Date/Time: 12/18/2015 11:20 Test Name Code Test Result Test Units Test Ref Range GLUCOSE 292 mg/dL L=74 H=106 SODIUM 134 mmol/L L=136 H=145 POTASSIUM 4.8 mmol/L L=3.5 H=5.1 CHLORIDE 100 mmol/L L=98 H=107 CO2 24 mmol/L L=21 H=32 BUN 16.0 mg/dL L=7.0 H=18.0 CREATININE 1.4 mg/dL L=0.6 H=1.0 BUN/CREAT 11.4 L=7.6 H=21.2 CALCIUM 8.9 mg/dL L=8.6 H=10.1 TOTAL BILI 0.2 mg/dL L=0.2 H=1.0 TOTAL PROTEIN 7.4 g/dL L=6.4 H=8.2 ALBUMIN 3.6 g/dL L=3.4 H=5.0 A/G RATIO 0.9 ALKALINE PHOS 115 IU/L L=50 H=136 AST/SGOT 6 IU/L L=15 H=37 ALT/SGPT 14 IU/L L=12 H=78 ANION GAP 14.5 mmol/L L=7.0 H=16.0 AGE 50 YEARS GFR 42.14 ml/min CPK, TOTAL - Collect Date/Time: 12/18/2015 11:20 Test Name Code Test Result Test Units Test Ref Range CPK 44 U/L L=26 H=192 CRP - Collect Date/Time: 12/18/2015 11:20 Test Name Code Test Result Test Units Test Ref Range CRP 0.4 mg/dL L=0.2 H=0.9 LIPASE - Collect Date/Time: 12/18/2015 11:20 Test Name Code Test Result Test Units Test Ref Range LIPASE 70 U/L L=73 H=393 TROPONIN QUANTITATIVE - Collect Date/Time: 12/18/2015 11:20 Test Name Code Test Result Test Units Test Ref Range TROPONIN I <0.040 ng/mL L=0.000 H=0.060 pro-BRAIN NATRIURETIC PEPTIDE - Collect Date/Time: 12/18/2015 11:20 Test Name Code Test Result Test Units Test Ref Range BNP 305.0 pg/ml L=0.0 H=125 CBC W/DIFF - Collect Date/Time: 12/18/2015 11:20 Test Name Code Test Result Test Units Test Ref Range WBC 6690-2 6.2 K/uL L=3.2 H=10.0 RBC 789-8 3.73 M/uL L=4.00 H=5.20 HEMOGLOBIN 718-7 13.2 g/dL L=12.1 H=15.6 HEMATOCRIT 38.3 % L=35.0 H=47.0 MCV 102.7 fL L=81.0 H=101 MCH 35.4 PG L=26.0 H=38.0 MCHC 34.5 G/DL L=31.0 H=37.0 RDW-SD 54.5 FL L=37.0 H=54.0 RDW-CV 14.8 % L=11.0 H=16.0 PLATELETS 179 K/UL L=140 H=380 MPV 9.5 FL L=9.0 H=13.0 %GRAN 59.3 % L=0.0 H=75.0 %LYMPH 33.3 % L=0.0 H=50.0 %MONO 5.8 % L=0.0 H=14.0 %EOS 1.3 % L=0.0 H=6.0 %BASO 0.3 % L=0.0 H=1.0 #GRAN 3.68 K/UL L=1.80 H=7.80 #LYMPH 2.07 K/UL L=0.30 H=4.00 #MONO 0.36 K/UL L=0.00 H=0.70 #EOS 0.08 K/UL L=0.00 H=0.40 #BASO 0.02 K/UL L=0.00 H=0.10 SLIDE REVIEWED? NOT INDICATED N/A MANUAL DIFF NOT INDICATED N/A UA W/MICROSCOPIC EXAM - Collect Date/Time: 12/18/2015 11:41 Test Name Code Test Result Test Units Test Ref Range COLOR UR Yellow N/A NORMAL:YELLOW CLARITY UR Clear N/A NORMAL:CLEAR SP GRAV UR 1.028 N/A NORMAL:1.000-1.030 PH UR 5.5 N/A NORMAL:5.0-8.5 PROTEIN UR 3+ N/A NORMAL:NEGATIVE GLUCOSE UR 2+ N/A NORMAL:NEGATIVE KETONE UR Trace N/A NORMAL:NEGATIVE BILIRUBIN UR 1+ N/A NORMAL:NEGATIVE BLOOD UR Negative N/A NORMAL:NEGATIVE LEUK UR Negative N/A NORMAL:NEGATIVE NITRITE UR Negative N/A NORMAL:NEGATIVE MICRO SEE BELOW N/A RBC/hpf 1 N/A NORMAL:0-5/hpf WBC/hpf 0-1 N/A NORMAL:0-10/hpf EPI UR >50 N/A NORMAL:NONE SEEN BACTERIA UR MODERATE N/A NORMAL:NONE SEEN MUCOUS NONE SEE N/A NORMAL:NONE SEEN CAST NONE SEE N/A CRYSTALS NONE SEE N/A CULTURE? NO N/A Active Medications Unknown or Not Available. Medications Administered During Visit Unknown or Not Available. Encounters Encounter Diagnosis Diagnosis Code Start Date Other chest pain R0789 12/18/2015 Social History Smoking Status Code Start Date End Date Current every day smoker 521795475 11/27/1979 Patient Decision Aids Unknown or Not Available. Discharge Instructions You were admitted to [facility] on 12/18/2015 10:26 with a principal diagnosis of Other chest pain You had the following tests done:CBC W/DIFFCOMPREHENSIVE METABOLIC PANELCPK, TOTALCRPLIPASETROPONIN QUANTITATIVEUA W/MICROSCOPIC EXAMpro-BRAIN NATRIURETIC PEPTIDE You were discharged from [facility] on 12/18/2015 12:35 Should you have any questions prior to [...]
--- OUTSIDE RECORDS SUMMARY | 2017-03-13 14:14 | XMS REPORT | CCD ---
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 15718 11/02/2011 Active ARTERY BP (HIGH BLOOD PRESSURE) 67140493 11/02/2011 Active CLOSED DISPLACED FRACTURE OF FIFTH 22054327 Active METATARSAL BONE GASTRO - ESOPHAGEAL REFLUX DISEASE 546852484 Active H/O ACUTE MYOCARDIAL INFARCTION 412 Active ACTIVE SMOKER 99963246 Active DETENTION CURRENT USE OF INSULIN 954085433 Active MIGRAINE 06406263 12/25/2011 Active CEPHALGIA 39175216 01/09/2012 Active CHEST PAIN 73232448 06/19/2012 Active CONTUSION OF BACK 27180189 07/16/2012 Active CONTUSION OF HIP 88771416 07/16/2012 Active CONTUSION OF FOOT 96280006 08/08/2012 Active CONTUSION OF ANKLE 89850100 08/08/2012 Active NAUSEA WITH VOMITING 57062902 10/11/2012 Active CONTUSION OF CHEST WALL 92622830 12/24/2012 Active CALCULUS OF URETER 16263325 02/10/2013 Active OTHER SPECIFIED DISORDER OF NERVOUS SYSTEM 279441370 04/01/2013 Active CALCULUS OF KIDNEY 31321516 05/29/2013 Active Mononeuritis of upper limb, unspecified 70359140 07/26/2013 Active Pain in joint involving upper arm 44380844 09/21/2013 Active Anxiety state, unspecified 567620146 10/30/2013 Active Sprain of other specified sites of elbow 308825588 11/20/2013 Active and forearm Head injury, unspecified 42675797 12/12/2013 Active Personal history of surgery to heart and 781074130 Active great vessels, presenting hazards to health [facility] 41978075 12/13/2013 Active Unspecified essential hypertension 64437372 Active Malignant neoplasm of cervix uteri, 763935342 Active unspecified Results GLUCOSE, SERUM OR PLASMA Test Name Code Test Result Test Units Test Date/Time GLUCOSE 616.0000 mg/dL 01/18/2014 08:32 URIC ACID, SERUM OR PLASMA Test Name Code Test Result Test Units Test Date/Time URIC ACID 2.0000 mg/dL 01/18/2014 08:32 Medications Medication Code Dose Units Frequency Route Modification Start Stop Date/Time Date/Time Pravastatin 928375 40 MILLIGRAMS Before bed ORAL 08/24/2013 40MG Oral 10:59 Tablet Clopidogrel 302353 75 MILLIGRAMS ORAL 08/24/2013 75MG Oral 10:59 Tablet Aspirin 325MG 079712 325 MILLIGRAMS ORAL 08/24/2013 Oral Tablet 10:59 Lisinopril 731001 20 MILLIGRAMS DAILY ORAL 11/20/2013 20MG Oral 21:32 Tablet GlipiZIDE 817294 10 MILLIGRAMS DAILY ORAL 11/20/2013 01/24/2014 10MG Oral 21:32 17:02 Tablet Hydrocodone 474545 1 TABLET Every BY For pain 11/29/2013 Bitart/Acet 4-6hr PRN MOUTH 01:37 325MG-5MG Oral Tablet Medications Administered Unknown. Encounters Encounter Diagnosis Diagnosis Code Start Date DIABETES W UNSPEC COMP, TYPE 2 UNSP 15993 01/18/2014 Social History Smoking Status Code Start Date End Date Current every day smoker 382255216 Patient Decision Aids Patient Decision Aid [facility]-ED Patient Educational Materials Instructions You were admitted to [facility] on 01/18/2014 with a principle diagnosis of DIABETES W UNSPEC COMP, TYPE 2 UNSP. You had the following procedures done:INJECT ANTIBIOTICINJECT INFUSE NEC You were discharged from [facility] on 01/18/2014. Should you have any questions prior to discharge, please contact a member of your healthcare team. If you have left the hospital and have any questions, please contact your primary care physician. Chief Complaint and Reason For Visit Chief Complaint Date of Onset FALL Function Status Unknown. Plan of Care Unknown. Referral/Transition of Care Unknown.
--- OUTSIDE RECORDS SUMMARY | 2017-03-13 14:14 | XMS REPORT | CCD ---
:1965 Author Name KIMBERLI ROY Dustin Address [address] [facility] Unavailable [place], [place] [id number] Care Team Providers Name Role Phone VIVIAN MARSH Attending Physician Unavailable VIVIAN MARSH Er Physician 1 Unavailable Vital Signs Vital Sign Value Unit Date/Time Recent/Initial? Weight Measured 149 lbs 04/11/2015 01:59 Initial VS Height 20.2 in 04/11/2015 01:59 Initial VS BMI (Body Mass Index) 56.73 kg/m^2 04/11/2015 01:59 Initial VS BSA (Body Surface Area) 0.98 m^2 04/11/2015 01:59 Initial VS Allergies Allergy Code Allergy Type Reaction Status KETOROLAC 51325 Drug allergy ITCHING Active TRAMADOL 84932 Drug allergy Active IMITREX NS SPR 20 MG 0 Drug allergy Active GABAPENTIN 45214 Drug allergy Active Procedures Procedure Code Procedure Type Date EKG 95378704 SNOMED CT 04/11/2015 History of Immunizations Unknown or Not Available. 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 058361067 Active MIGRAINE 02155002 12/25/2011 Active CEPHALGIA 46595372 01/09/2012 Active CHEST PAIN 30872151 06/19/2012 Active CONTUSION OF BACK 64336014 07/16/2012 Active CONTUSION OF HIP 05816471 07/16/2012 Active CONTUSION OF FOOT 02298099 08/08/2012 Active CONTUSION OF ANKLE 99257008 08/08/2012 Active NAUSEA WITH VOMITING 48316112 10/11/2012 Active CONTUSION OF CHEST WALL 25826091 12/24/2012 Active CALCULUS OF URETER 15486516 02/10/2013 Active OTHER SPECIFIED DISORDER OF NERVOUS SYSTEM 292424199 04/01/2013 Active CALCULUS OF KIDNEY 31551450 05/29/2013 Active Mononeuritis of upper limb, unspecified 71837337 07/26/2013 Active Pain in joint involving upper arm 38198224 09/21/2013 Active Anxiety state, unspecified 740415492 10/30/2013 Active Sprain of other specified sites of elbow 374710102 11/20/2013 Active and forearm Head injury, unspecified 07276271 12/12/2013 Active Personal history of surgery to heart and 961883065 Active great vessels, presenting hazards to health Headache 18698584 12/13/2013 Active Unspecified essential hypertension 11716125 Active Malignant neoplasm of cervix uteri, 452077600 Active unspecified Results BASIC METABOLIC PANEL - Collect Date/Time: 04/11/2015 02:25 Test Name Code Test Result Test Units Test Ref Range GLUCOSE 157 mg/dL L=74 H=106 SODIUM 135 mmol/L L=136 H=145 POTASSIUM 4.1 mmol/L L=3.5 H=5.1 CHLORIDE 104 mmol/L L=98 H=107 CO2 23 mmol/L L=21 H=32 BUN 16.0 mg/dL L=7.0 H=18.0 CREATININE 1.2 mg/dL L=0.6 H=1.0 BUN/CREAT 13.3 L=7.6 H=21.2 CALCIUM 8.6 mg/dL L=8.6 H=10.1 ANION GAP 12.1 mmol/L L=7.0 H=16.0 AGE 49 YEARS GFR 50.54 ml/min CBC W/DIFF - Collect Date/Time: 04/11/2015 02:25 Test Name Code Test Result Test Units Test Ref Range WBC 6690-2 7.7 K/uL L=3.2 H=10.0 RBC 789-8 3.83 M/uL L=4.00 H=5.20 HEMOGLOBIN 718-7 12.8 g/dL L=12.1 H=15.6 HEMATOCRIT 37.9 % L=35.0 H=47.0 MCV 99.0 fL L=81.0 H=101 MCH 33.4 PG L=26.0 H=38.0 MCHC 33.8 G/DL L=31.0 H=37.0 RDW-SD 48.0 FL L=37.0 H=54.0 RDW-CV 13.6 % L=11.0 H=16.0 PLATELETS 187 K/UL L=140 H=380 MPV 9.8 FL L=9.0 H=13.0 %GRAN 56.3 % L=0.0 H=75.0 %LYMPH 36.2 % L=0.0 H=50.0 %MONO 4.5 % L=0.0 H=14.0 %EOS 2.5 % L=0.0 H=6.0 %BASO 0.5 % L=0.0 H=1.0 #GRAN 4.36 K/UL L=1.80 H=7.80 #LYMPH 2.80 K/UL L=0.30 H=4.00 #MONO 0.35 K/UL L=0.00 H=0.70 #EOS 0.19 K/UL L=0.00 H=0.40 #BASO 0.04 K/UL L=0.00 H=0.10 SLIDE REVIEWED? NOT INDICATED N/A MANUAL DIFF NOT INDICATED N/A Active Medications Unknown or Not Available. Medications Administered During Visit Unknown or Not Available. Encounters Encounter Diagnosis Diagnosis Code Start Date SYNCOPE AND COLLAPSE 7802 04/11/2015 Social History Smoking Status Code Start Date End Date Current every day smoker 890816115 11/27/1979 Patient Decision Aids Unknown or Not Available. Discharge Instructions You were admitted to [facility] on 04/11/2015 with a principal diagnosis of SYNCOPE AND COLLAPSE. You were discharged from [facility] on 04/11/2015. Should you have any questions prior to discharge, please contact a member of your healthcare team. If you have left the hospital and have any questions, please contact your primary care physician. Chief Complaint and Reason For Visit Chief Complaint Date of Onset PASSED OUT Function Status Unknown or Not Available. Plan of Care Unknown or Not Available. Referral/Transition of Care Unknown or Not Available.
--- OUTSIDE RECORDS SUMMARY | 2017-03-13 14:14 | XMS REPORT | CCD ---
:1965 Author Name GATITO CABELLO Address [address] [facility] [place] [address] Care Team Providers Name Role Phone MED CHAIREZ MD Attending Physician Unavailable MED CHAIREZ MD Er Physician 1 Unavailable Allergies Allergy Code Allergy Type Reaction Status BENADRYL 553027 Drug allergy ITCHING Active CYCLOBENZAPRINE 99501 Drug allergy Active KETOROLAC 46771 Drug allergy ITCHING Active TRAMADOL 06362 Drug allergy Active IMITREX NS SPR 20 MG 0 Drug allergy Active GABAPENTIN 20729 Drug allergy Active Active Medications Medication Code Dose Units Frequency Route Modification Start Date/Time Metformin 1000MG 904276 1356 MILLIGRAMS TWICE A DAY ORAL 07/29/2014 Oral Tablet 06:20 Prescription Detail TAKE 1000 MILLIGRAMS ORAL TWICE A DAY Problems Problem Code Start Date Resolved Date Status DIZZINESS 814368088 11/02/2011 Active DIABETES MELLITUS 07685768 11/02/2011 Active 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 52875 11/02/2011 Active ARTERY BP (HIGH BLOOD PRESSURE) 03445516 11/02/2011 Active CLOSED DISPLACED FRACTURE OF FIFTH 62122719 Active METATARSAL BONE GASTRO - ESOPHAGEAL REFLUX DISEASE 127595777 Active H/O ACUTE MYOCARDIAL INFARCTION 412 Active ACTIVE SMOKER 98685522 Active ASSISTED CURRENT USE OF INSULIN 464932430 Active MIGRAINE 95636806 12/25/2011 Active CEPHALGIA 95206503 01/09/2012 Active CHEST PAIN 83863701 06/19/2012 Active CONTUSION OF BACK 05917015 07/16/2012 Active CONTUSION OF HIP 26443650 07/16/2012 Active CONTUSION OF FOOT 42658540 08/08/2012 Active CONTUSION OF ANKLE 16458883 08/08/2012 Active NAUSEA WITH VOMITING 57314366 10/11/2012 Active CONTUSION OF CHEST WALL 80854129 12/24/2012 Active CALCULUS OF URETER 17654301 02/10/2013 Active OTHER SPECIFIED DISORDER OF NERVOUS SYSTEM 541995865 04/01/2013 Active CALCULUS OF KIDNEY 31937633 05/29/2013 Active Mononeuritis of upper limb, unspecified 11219059 07/26/2013 Active Pain in joint involving upper arm 19667732 09/21/2013 Active Anxiety state, unspecified 308039434 10/30/2013 Active Sprain of other specified sites of elbow 053071221 11/20/2013 Active and forearm Head injury, unspecified 45542480 12/12/2013 Active Personal history of surgery to heart and 641500574 Active great vessels, presenting hazards to health Headache 00469457 12/13/2013 Active Unspecified essential hypertension 50959557 Active Malignant neoplasm of cervix uteri, 504067852 Active unspecified Procedures Unknown or Not Available. Results Unknown or Not Available. Function Status Unknown or Not Available. History of Immunizations Unknown or Not Available. Plan of Treatment Unknown or Not Available. Social History Smoking Status Code Start Date End Date Current every day smoker 778406973 11/27/1979 Vital Signs Unknown or Not Available. Function Status Unknown or Not Available. Goals Unknown or Not Available. ASSESSMENTS Unknown or Not Available. Health Concerns Section Unknown or Not Available.
--- OUTSIDE RECORDS SUMMARY | 2017-03-13 14:14 | XMS REPORT | CCD ---
:1965 Author Name KIMBERLI ROY Dustin Address [address] [facility] Unavailable [place], [place] [id number] Care Team Providers Name Role Phone RUTHIE GARNICA Attending Physician Unavailable RUTHIE GARNICA Er Physician 1 Unavailable BENNY Mcgowan Registered Nurse Unavailable Vital Signs Vital Sign [...] Code Start Date Resolved Date Status MIGRAINE 75994691 12/25/2011 Active Sprain of other specified sites of elbow 317775968 11/20/2013 Active and forearm Anxiety state, unspecified 353512167 10/30/2013 Active Pain in joint involving upper arm 78065330 09/21/2013 Active Mononeuritis of upper limb, unspecified 85328554 07/26/2013 Active DIZZINESS 993721357 11/02/2011 Active DIABETES MELLITUS 58697693 11/02/2011 Active OTHER SPECIFIED DISORDER OF NERVOUS SYSTEM 279633880 04/01/2013 Active 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 66775 11/02/2011 Active ARTERY CALCULUS OF KIDNEY 72675297 05/29/2013 Active BP (HIGH BLOOD PRESSURE) 22718570 11/02/2011 Active CLOSED DISPLACED FRACTURE OF FIFTH 03609129 Active METATARSAL BONE GASTRO - ESOPHAGEAL REFLUX DISEASE 457161697 Active H/O ACUTE MYOCARDIAL INFARCTION 412 Active ACTIVE SMOKER 75511575 Active 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 Medications Medication Code Dose Units Frequency Route Modification Start Stop Date/Time Date/Time Pravastatin 131752 40 MILLIGRAMS Before bed ORAL 08/24/2013 40MG Oral 10:59 Tablet Clopidogrel 758085 75 MILLIGRAMS ORAL 08/24/2013 75MG Oral 10:59 Tablet Aspirin 325MG 288723 325 MILLIGRAMS ORAL 08/24/2013 Oral Tablet 10:59 Lisinopril 674214 20 MILLIGRAMS DAILY ORAL 11/20/2013 20MG Oral 21:32 Tablet GlipiZIDE 701702 10 MILLIGRAMS DAILY ORAL 11/20/2013 10MG Oral 21:32 Tablet Hydrocodone 649438 1 TABLET Every BY For pain 11/29/2013 Bitart/Acet 4-6hr PRN MOUTH 01:37 325MG-5MG Oral Tablet Medications Administered Unknown. Encounters Encounter Diagnosis Diagnosis Code Start Date CONTUSION OF CHEST WALL 9221 11/29/2013 Social History Smoking Status Code Start Date End Date Current every day smoker 548254417 Patient Decision Aids Patient Decision Aid [facility] Patient Educational Materials Instructions You were admitted to [facility] on 11/29/2013 with a principle diagnosis of CONTUSION OF CHEST WALL. You were discharged from [facility] on 11/29/2013. Should you have any questions prior to discharge, please contact a member of your healthcare team. If you have left the hospital and have any questions, please contact your primary care physician. Chief Complaint and Reason For Visit Chief Complaint Date of Onset FALL Function Status Unknown. Plan of Care Unknown. Referral/Transition of Care Unknown.
--- OUTSIDE RECORDS SUMMARY | 2017-03-13 14:14 | XMS REPORT | CCD ---
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 36151 11/02/2011 Active ARTERY BP (HIGH BLOOD PRESSURE) 06276989 11/02/2011 Active CLOSED DISPLACED FRACTURE OF FIFTH 47682534 Active METATARSAL BONE GASTRO - ESOPHAGEAL REFLUX DISEASE 182801688 Active H/O ACUTE MYOCARDIAL INFARCTION 412 Active ACTIVE SMOKER 43872264 Active 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 031894156 Active MIGRAINE 62278859 12/25/2011 Active CEPHALGIA 92854194 01/09/2012 Active CHEST PAIN 50897350 06/19/2012 Active CONTUSION OF BACK 11001381 07/16/2012 Active CONTUSION OF HIP 75877050 07/16/2012 Active CONTUSION OF FOOT 59340251 08/08/2012 Active CONTUSION OF ANKLE 38303755 08/08/2012 Active NAUSEA WITH VOMITING 63870173 10/11/2012 Active CONTUSION OF CHEST WALL 64266933 12/24/2012 Active CALCULUS OF URETER 11937952 02/10/2013 Active OTHER SPECIFIED DISORDER OF NERVOUS SYSTEM 141030090 04/01/2013 Active CALCULUS OF KIDNEY 37447694 05/29/2013 Active Mononeuritis of upper limb, unspecified 85838811 07/26/2013 Active Pain in joint involving upper arm 94152123 09/21/2013 Active Anxiety state, unspecified 271230744 10/30/2013 Active Sprain of other specified sites of elbow 666403914 11/20/2013 Active and forearm Head injury, unspecified 11656689 12/12/2013 Active Personal history of surgery to heart and 257734335 Active great vessels, presenting hazards to health Headache 79700675 12/13/2013 Active Unspecified essential hypertension 09690927 Active Malignant neoplasm of cervix uteri, 378787063 Active unspecified Results Unknown. Medications Medication Code Dose Units Frequency Route Modification Start Stop Date/Time Date/Time Pravastatin 995991 40 MILLIGRAMS Before bed ORAL 08/24/2013 40MG Oral 10:59 Tablet Clopidogrel 026415 75 MILLIGRAMS ORAL 08/24/2013 75MG Oral 10:59 Tablet Aspirin 325MG 085467 325 MILLIGRAMS ORAL 08/24/2013 Oral Tablet 10:59 Lisinopril 101143 20 MILLIGRAMS DAILY ORAL 11/20/2013 20MG Oral 21:32 Tablet Hydrocodone 235664 1 TABLET Every BY For pain 11/29/2013 Bitart/Acet 4-6hr PRN MOUTH 01:37 325MG-5MG Oral Tablet Metformin 393170 500 MILLIGRAMS TWICE A ORAL 01/24/2014 500MG Oral DAY 18:54 Tablet GlipiZIDE 5MG 200841 5 MILLIGRAMS Every 8 hr ORAL 01/24/2014 Oral Tablet as needed 18:54 Medications Administered Unknown. Encounters Encounter Diagnosis Diagnosis Code Start Date TENSION HEADACHE 88664 02/22/2014 Social History Smoking Status Code Start Date End Date Current every day smoker 094634893 Patient Decision Aids Unknown. Instructions You were admitted to [facility] on 02/22/2014 with a principle diagnosis of TENSION HEADACHE. You had the following procedures done:INJECT INFUSE NECINJECT INFUSE NEC You were discharged from [facility] on 02/22/2014. Should you have any questions prior to discharge, please contact a member of your healthcare team. If you have left the hospital and have any questions, please contact your primary care physician. Chief Complaint and Reason For Visit Chief Complaint Date of Onset MIGRAINE Function Status Unknown. Plan of Care Unknown. Referral/Transition of Care Unknown.
--- OUTSIDE RECORDS SUMMARY | 2017-03-13 14:14 | XMS REPORT | CCD ---
:1965 Author Name GATITO CABELLO Address [address] Unavailable [place], [place] [id number] Care Team Providers Name Role Phone MOISES LEON Attending Physician Unavailable MOISES LEON Er Physician 1 Unavailable Vital Signs Unknown or Not Available. Allergies Allergy Code Allergy Type Reaction Status BENADRYL 443639 Drug allergy ITCHING Active CYCLOBENZAPRINE 44418 Drug allergy Active KETOROLAC 82220 Drug allergy ITCHING Active TRAMADOL 42404 Drug allergy Active IMITREX NS SPR 20 MG 0 Drug allergy Active GABAPENTIN 71426 Drug allergy Active Procedures Procedure Code Procedure Type Date EKG 95590964 SNOMED CT 02/04/2016 History of Immunizations Unknown or Not Available. 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 60032 11/02/2011 Active ARTERY BP (HIGH BLOOD PRESSURE) 82678442 11/02/2011 Active CLOSED DISPLACED FRACTURE OF FIFTH 93845942 Active METATARSAL BONE GASTRO - ESOPHAGEAL REFLUX DISEASE 061630949 Active H/O ACUTE MYOCARDIAL INFARCTION 412 Active ACTIVE SMOKER 49701163 Active USP CURRENT USE OF INSULIN 682175992 Active MIGRAINE 71431278 12/25/2011 Active CEPHALGIA 48029780 01/09/2012 Active CHEST PAIN 68013824 06/19/2012 Active CONTUSION OF BACK 37944087 07/16/2012 Active CONTUSION OF HIP 27366260 07/16/2012 Active CONTUSION OF FOOT 58184624 08/08/2012 Active CONTUSION OF ANKLE 25649339 08/08/2012 Active NAUSEA WITH VOMITING 98989830 10/11/2012 Active CONTUSION OF CHEST WALL 04478394 12/24/2012 Active CALCULUS OF URETER 86243931 02/10/2013 Active OTHER SPECIFIED DISORDER OF NERVOUS SYSTEM 427813651 04/01/2013 Active CALCULUS OF KIDNEY 91211834 05/29/2013 Active Mononeuritis of upper limb, unspecified 60599296 07/26/2013 Active Pain in joint involving upper arm 52447320 09/21/2013 Active Anxiety state, unspecified 675015853 10/30/2013 Active Sprain of other specified sites of elbow 857923464 11/20/2013 Active and forearm Head injury, unspecified 24858376 12/12/2013 Active Personal history of surgery to heart and 458189442 Active great vessels, presenting hazards to health Headache 00858373 12/13/2013 Active Unspecified essential hypertension 64022644 Active Malignant neoplasm of cervix uteri, 125507690 Active unspecified Results Unknown or Not Available. Active Medications Medication Code Dose Units Frequency Route Modification Start Date/Time Metformin 1000MG 443312 1506 MILLIGRAMS TWICE A DAY ORAL 07/29/2014 Oral Tablet 06:20 Prescription Detail TAKE 1000 MILLIGRAMS ORAL TWICE A DAY Medications Administered During Visit Unknown or Not Available. Encounters Encounter Diagnosis Diagnosis Code Start Date Syncope and collapse R55 02/04/2016 Social History Smoking Status Code Start Date End Date Current every day smoker 481860455 11/27/1979 Patient Decision Aids Unknown or Not Available. Discharge Instructions You were admitted to [facility] on 02/04/2016 18:10 with a principal diagnosis of Syncope and collapse You were discharged from [facility] on 02/04/2016 19:19 Should you have any questions prior to discharge, please contact a member of your healthcare team. If you have left the hospital and have any questions, please contact your primary care physician. Chief Complaint and Reason For Visit Chief Complaint Date of Onset PASSED OUT AND HIT HEAD RT FACE SWOLLE Function Status Unknown or Not Available. Plan of Care Unknown or Not Available. Referral/Transition of Care Unknown or Not Available.
--- OUTSIDE RECORDS SUMMARY | 2017-03-13 14:14 | XMS REPORT | CCD ---
:1965 Author Name KIMBERLI ROY Dustin Address [address] [facility] Unavailable [place], [place] [phone] Care Team Providers Name Role Phone ASHVIN MOTA Attending Physician Unavailable ASHVIN MOTA Er Physician 1 Unavailable Vital Signs Vital Sign Value Unit Weight Measured 170 lbs Height 20.2 in BMI (Body Mass Index) 92.92 kg/m^2 BSA (Body Surface Area) 1.05 m^2 Allergies Allergy Code Allergy Type Reaction Status KETOROLAC 0 Drug allergy (disorder) ITCHING Active TRAMADOL 0 Drug allergy (disorder) Active IMITREX NS SPR 20 MG 0 Drug allergy (disorder) Active GABAPENTIN 0 Drug allergy (disorder) Active Procedures Unknown. History of Immunizations Unknown. 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 35972 11/02/2011 Active ARTERY BP (HIGH BLOOD PRESSURE) 30649278 11/02/2011 Active CLOSED DISPLACED FRACTURE OF FIFTH 64263502 Active METATARSAL BONE GASTRO - ESOPHAGEAL REFLUX DISEASE 389469296 Active H/O ACUTE MYOCARDIAL INFARCTION 412 Active ACTIVE SMOKER 85232663 Active CORRECTION CURRENT USE OF INSULIN 753462518 Active MIGRAINE 46573337 12/25/2011 Active CEPHALGIA 09777386 01/09/2012 Active CHEST PAIN 92872414 06/19/2012 Active CONTUSION OF BACK 54509169 07/16/2012 Active CONTUSION OF HIP 77286964 07/16/2012 Active CONTUSION OF FOOT 61674777 08/08/2012 Active CONTUSION OF ANKLE 98813258 08/08/2012 Active NAUSEA WITH VOMITING 82398564 10/11/2012 Active CONTUSION OF CHEST WALL 49836020 12/24/2012 Active CALCULUS OF URETER 95552744 02/10/2013 Active OTHER SPECIFIED DISORDER OF NERVOUS SYSTEM 224425868 04/01/2013 Active CALCULUS OF KIDNEY 42578653 05/29/2013 Active Mononeuritis of upper limb, unspecified 32464420 07/26/2013 Active Pain in joint involving upper arm 17897738 09/21/2013 Active Anxiety state, unspecified 476275523 10/30/2013 Active Sprain of other specified sites of elbow 547600508 11/20/2013 Active and forearm Head injury, unspecified 58410094 12/12/2013 Active Personal history of surgery to heart and 587823524 Active great vessels, presenting hazards to health Headache 31186767 12/13/2013 Active Unspecified essential hypertension 30011096 Active Malignant neoplasm of cervix uteri, 182090957 Active unspecified Results Unknown. Medications Medication Code Dose Units Frequency Route Modification Start Stop Date/Time Date/Time Pravastatin 802272 40 MILLIGRAMS Before bed ORAL 08/24/2013 40MG Oral 10:59 Tablet Clopidogrel 387991 75 MILLIGRAMS ORAL 08/24/2013 75MG Oral 10:59 Tablet Aspirin 325MG 299875 325 MILLIGRAMS ORAL 08/24/2013 Oral Tablet 10:59 Lisinopril 664252 20 MILLIGRAMS DAILY ORAL 11/20/2013 20MG Oral 21:32 Tablet Hydrocodone 672287 1 TABLET Every BY For pain 11/29/2013 Bitart/Acet 4-6hr PRN MOUTH 01:37 325MG-5MG Oral Tablet Metformin 733163 500 MILLIGRAMS TWICE A ORAL 01/24/2014 500MG Oral DAY 18:54 Tablet GlipiZIDE 5MG 448219 5 MILLIGRAMS Every 8 hr ORAL 01/24/2014 Oral Tablet as needed 18:54 Medications Administered Unknown. Encounters Encounter Diagnosis Diagnosis Code Start Date LUMBAGO 7242 02/14/2014 Social History Smoking Status Code Start Date End Date Current every day smoker 351123452 Patient Decision Aids Unknown. Instructions You were admitted to [facility] on 02/14/2014 with a principle diagnosis of LUMBAGO. You were discharged from [facility] on 02/14/2014. Should you have any questions prior to discharge, please contact a member of your healthcare team. If you have left the hospital and have any questions, please contact your primary care physician. Chief Complaint and Reason For Visit Chief Complaint Date of Onset CIADIC NERVE Function Status Unknown. Plan of Care Unknown. Referral/Transition of Care Unknown.
--- OUTSIDE RECORDS SUMMARY | 2017-03-13 14:14 | XMS REPORT | CCD ---
:1965 Author Name KIMBERLI ROY Dustin Address [address] [facility] Unavailable [place], [place] [phone] Care Team Providers Name Role Phone MOISES LEON Attending Physician Unavailable MOISES LEON Er Physician 1 Unavailable ARA Chahal Registered Nurse Unavailable Vital Signs Vital Sign Value Unit Date/Time Recent/Initial? Weight Measured 151 lbs 04/01/2015 11:38 Initial VS Height 67 in 04/01/2015 11:38 Initial VS BMI (Body Mass Index) 23.65 kg/m^2 04/01/2015 11:38 Initial VS BSA (Body Surface Area) 1.8 m^2 04/01/2015 11:38 Initial VS Allergies Allergy Code Allergy Type Reaction Status KETOROLAC 74405 Drug allergy ITCHING Active TRAMADOL 92163 Drug allergy Active IMITREX NS SPR 20 MG 0 Drug allergy Active GABAPENTIN 17081 Drug allergy Active Procedures Unknown or Not Available. History of Immunizations Unknown or Not Available. 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 067629919 Active MIGRAINE 30418967 12/25/2011 Active CEPHALGIA 06365651 01/09/2012 Active CHEST PAIN 61004062 06/19/2012 Active CONTUSION OF BACK 10666566 07/16/2012 Active CONTUSION OF HIP 90119323 07/16/2012 Active CONTUSION OF FOOT 25593582 08/08/2012 Active CONTUSION OF ANKLE 87490562 08/08/2012 Active NAUSEA WITH VOMITING 51785711 10/11/2012 Active CONTUSION OF CHEST WALL 08555310 12/24/2012 Active CALCULUS OF URETER 42533675 02/10/2013 Active OTHER SPECIFIED DISORDER OF NERVOUS SYSTEM 975900829 04/01/2013 Active CALCULUS OF KIDNEY 28672120 05/29/2013 Active Mononeuritis of upper limb, unspecified 07035278 07/26/2013 Active Pain in joint involving upper arm 29065095 09/21/2013 Active Anxiety state, unspecified 656822073 10/30/2013 Active Sprain of other specified sites of elbow 129707421 11/20/2013 Active and forearm Head injury, unspecified 80980851 12/12/2013 Active Personal history of surgery to heart and 681900205 Active great vessels, presenting hazards to health Headache 26543666 12/13/2013 Active Unspecified essential hypertension 95705112 Active Malignant neoplasm of cervix uteri, 225555264 Active unspecified Results Unknown or Not Available. Active Medications Unknown or Not Available. Medications Administered During Visit Unknown or Not Available. Encounters Encounter Diagnosis Diagnosis Code Start Date SPASM OF MUSCLE 42647 04/01/2015 Social History Smoking Status Code Start Date End Date Current every day smoker 801130332 11/27/1979 Patient Decision Aids Unknown or Not Available. Discharge Instructions You were admitted to [facility] on 04/01/2015 with a principal diagnosis of SPASM OF MUSCLE. You were discharged from [facility] on 04/01/2015. Should you have any questions prior to discharge, please contact a member of your healthcare team. If you have left the hospital and have any questions, please contact your primary care physician. Chief Complaint and Reason For Visit Chief Complaint Date of Onset LT SHOULDER PAIN MUSCLE SPASMS Function Status Unknown or Not Available. Plan of Care Unknown or Not Available. Referral/Transition of Care Unknown or Not Available.
== END 2017-03-13 14:15 | disposition home or self-care (01) ==
LOC: ER 11:23
DX: M25.511 Pain in right shoulder (principal)